=== PATIENT | female | born 1995 | race Caucasian/White ===

== ENCOUNTER 2022-03-22 12:11 | Outpatient (CLI) | payer OTHER ==
[2022-03-22 13:31] LABS: BASOPHILS % (AUTO) 0.3 %; EOSINOPHILS # (AUTO) 0.1 10^3/uL (0.0-0.7); EOSINOPHILS % (AUTO) 1.6 %; HCT - HEMATOCRIT 22.3 % (37.0-47.0); LYMPHOCYTES # (AUTO) 1.8 10^3/uL (1.5-3.5); LYMPHOCYTES % (AUTO) 19.7 %; MEAN CORPUSCULAR HEMOGLOBIN 21.7 pg (27.0-31.0); MEAN CORPUSCULAR HGB CONC 29.6 g/dL (32.0-36.0); MEAN CORPUSCULAR VOLUME 73.4 fL (81.0-99.0); MEAN PLATELET VOLUME 7.6 fL (7.9-10.8); MONOCYTES # (AUTO) 0.7 10^3/uL (0.0-1.0); MONOCYTES % (AUTO) 7.9 %; NEUTROPHILS # (AUTO) 6.3 10^3/uL (1.5-6.6); NEUTROPHILS % (AUTO) 70.1 %; PLT - PLATELET COUNT 760 10^3/uL (130-450); RED BLOOD COUNT 3.04 10^6/uL (4.20-5.40); RED CELL DISTRIBUTION WIDTH 18.6 % (12.0-15.0)
[2022-03-22 13:55] LABS: HGB - HEMOGLOBIN 6.6 g/dL (12.0-16.0)
[2022-03-22 14:02] LABS: ALBUMIN 2.4 g/dL (3.2-5.5); ALBUMIN/GLOBULIN RATIO 0.3 (1.0-2.2); BILIRUBIN,TOTAL 0.4 mg/dL (0.2-1.0); CALCIUM 8.8 mg/dL (8.5-10.3); CREATININE 0.5 mg/dL (0.4-1.0); CRP - C-REACTIVE PROTEIN 18.4 mg/dL (0-1.0); POTASSIUM 3.4 mmol/L (3.5-5.0); TOTAL PROTEIN 10.3 g/dL (6.7-8.2)
[2022-03-22 14:18] LABS: RHEUMATOID FACTOR NEGATIVE (Negative)
[2022-03-23 03:08] LABS: HBsAG SCREEN Negative (Negative); HCV AB 0.1 s/co ratio (0.0-0.9); HEPATITIS B SURFACE AB QUAL Non Reactive (.)
[2022-03-23 17:08] LABS: ANTI-DNA (DS) AB QN <1 IU/mL (0-9); CENTROMERE B ANTIBODIES <0.2 AI (0.0-0.9); CHROMATIN ANTIBODIES <0.2 AI (0.0-0.9); JO-1 AB <0.2 AI (0.0-0.9); RIBOSOMAL P ANTIBODIES <0.2 AI (0.0-0.9); RNP ANTIBODIES 0.8 AI (0.0-0.9); SCLERODERMA-70 ANTIBODIES <0.2 AI (0.0-0.9); SJOGREN'S ANTI-SS-A <0.2 AI (0.0-0.9); SJOGREN'S ANTI-SS-B <0.2 AI (0.0-0.9); SMITH ANTIBODIES <0.2 AI (0.0-0.9); SMITH/RNP ANTIBODIES <0.2 AI (0.0-0.9)
[2022-03-24 12:08] LABS: ANTINUCLEAR ANTIBODIES IFA Negative (.)
[2022-03-26 13:09] LABS: ATYPICAL pANCA <1:20 titer (Neg:<1:20); CYTOPLASMIC (C-ANCA) <1:20 titer (Neg:<1:20); PERINUCLEAR (P-ANCA) <1:20 titer (Neg:<1:20)
[2022-03-26 21:07] LABS: CYCLIC CITRULLINATED PEP IGG/A 9 units (0-19)
[2022-03-29 21:07] LABS: HLA B 27 DISEASE ASSOCIATION Positive (.)
== END 2022-03-22 12:12 | disposition home or self-care (01) ==
LOC: LAB 12:11
PROVIDERS: ATTEND Internal Medicine Rheumatology
DX: R63.4 Abnormal weight loss (principal); R35.1 Nocturia; M15.9 Polyosteoarthritis, unspecified; Z87.39 Personal history of other diseases of the musculoskeletal system and connective tissue; Z87.2 Personal history of diseases of the skin and subcutaneous tissue; Z79.899 Other long term (current) drug therapy
CPT/HCPCS: 36415; 80053; 81374; 81599; 82550; 85025; 85651; 86038; 86140; 86200; 86225; 86235; 86430; 86704; 86706; 86803; 87340

== ENCOUNTER 2022-03-22 14:44 | Emergency (ER) | payer OTHER ==
[2022-03-22 15:07] LABS: BASOPHILS % (AUTO) 0.4 %; EOSINOPHILS # (AUTO) 0.1 10^3/uL (0.0-0.7); EOSINOPHILS % (AUTO) 1.4 %; HCT - HEMATOCRIT 23.8 % (37.0-47.0); LYMPHOCYTES # (AUTO) 2.1 10^3/uL (1.5-3.5); LYMPHOCYTES % (AUTO) 22.9 %; MEAN CORPUSCULAR HEMOGLOBIN 21.5 pg (27.0-31.0); MEAN CORPUSCULAR HGB CONC 29.4 g/dL (32.0-36.0); MEAN CORPUSCULAR VOLUME 73.2 fL (81.0-99.0); MEAN PLATELET VOLUME 7.6 fL (7.9-10.8); MONOCYTES # (AUTO) 0.7 10^3/uL (0.0-1.0); MONOCYTES % (AUTO) 7.4 %; NEUTROPHILS # (AUTO) 6.1 10^3/uL (1.5-6.6); NEUTROPHILS % (AUTO) 67.7 %; PLT - PLATELET COUNT 779 10^3/uL (130-450); RED BLOOD COUNT 3.25 10^6/uL (4.20-5.40); RED CELL DISTRIBUTION WIDTH 18.3 % (12.0-15.0)
--- OUTSIDE RECORDS SUMMARY | 2022-03-22 15:13 | EXTERNAL MEDICAL SUMMARY RPT | Continuity of Care Document ---
:1995 Author Organization [place] Address [address] [place] [address] Phone Allergies and Intolerances date description facility type (no date) [facility] (unknown) Encounters No information. Functional Status No information. Immunizations No information. Medications date description facility [id number] Ibuprofen 800 MG Oral Tablet [facility] ospital [id number] Cyclobenzaprine hydrochloride 7.5 MG O [facility] Tablet [id number] Diclofenac Sodium 0.01 MG/MG Topical G [facility] Problems No information. Procedures date description facility + [facility] +0000 [facility] Results/Labs test date author facility value unit interpret ation Result panel 1 (unknown) (no (unknown) (unknown) (no value) (units (unk nown) date) unknown) (unknown) (no (unknown) (unknown) [address] [place] [address] (units (unknown) date) unknown) (unknown) (no (unknown) (unknown) [place], [place] (units ( unknown) date) [id number] unknown) (unknown) (no (unknown) (unknown) [facility] (units (unknown) date) unknown) (unknown) (no (unknown) (unknown) Magnetic (units (unkno wn) date) Resonance Report unknown) (unknown) (no (unknown) (unknown) Signed (units (unkno wn) date) unknown) (unknown) (no (unknown) (unknown) (no value) (units (unk nown) date) unknown) (unknown) (no (unknown) (unknown) 01/01/22 (units (unkno wn) date) unknown) (unknown) (no (unknown) (unknown) 1. Loss of (units (unk nown) date) normal lumbar unknown) lordosis, suggestive of muscle spasm. (unknown) (no (unknown) (unknown) 2. No (units (unkno wn) date) significant unknown) canal, or foraminal stenosis. No neural impingement. (unknown) (no (unknown) (unknown) Alignment and (units ( unknown) date) Curvature: 5 unknown) lumbar type vertebral bodies are present by plain (unknown) (no (unknown) (unknown) Approved by: (units (u nknown) date) Adelaide Fritz, unknown) Maxwell on 01/01/2022 at 14:39 (unknown) (no (unknown) (unknown) Bone Marrow: (units (u nknown) date) Marrow is of unknown) normal overall signal. No acute vertebral body (unknown) (no (unknown) (unknown) COMPARISON: (units (un known) date) [facility], unknown) CR, XR LUMBAR SPINE 2-3V, 11/14/2021, 14:35. (unknown) (no (unknown) (unknown) Dictated by: (units (u nknown) date) Adelaide Fritz, unknown) Maxwell on 01/01/2022 at 14:38 (unknown) (no (unknown) (unknown) FINDINGS: (units (unkn own) date) unknown) (unknown) (no (unknown) (unknown) IMPRESSION: (units (un known) date) unknown) (unknown) (no (unknown) (unknown) INDICATIONS: (units (u nknown) date) lumbar unknown) radiculopathy (unknown) (no (unknown) (unknown) Image quality: (units (unknown) date) Excellent. unknown) (unknown) (no (unknown) (unknown) L1-L2: Normal (units (unknown) date) appearance. unknown) (unknown) (no (unknown) (unknown) L2-L3: Normal (units (unknown) date) appearance. unknown) (unknown) (no (unknown) (unknown) L3-L4: Normal (units (unknown) date) appearance. unknown) (unknown) (no (unknown) (unknown) L4-L5: Normal (units (unknown) date) appearance. unknown) (unknown) (no (unknown) (unknown) L5-S1: Normal (units (unknown) date) appearance. unknown) (unknown) (no (unknown) (unknown) Noncontrast (units (un known) date) sagittal T1 spin unknown) echo and T2 fast echo, sagittal STIR, and T2 fast (unknown) (no (unknown) (unknown) Paraspinous Soft (units (unknown) date) Tissues: No unknown) paravertebral masses. (unknown) (no (unknown) (unknown) Spinal Cord: (units (u nknown) date) Conus medullaris unknown) terminates at the L1-L2 disc space level. (unknown) (no (unknown) (unknown) T12-L1: Normal (units (unknown) date) appearance. unknown) (unknown) (no (unknown) (unknown) TECHNIQUE: (units (unk nown) date) unknown) (unknown) (no (unknown) (unknown) There is loss of (units (unknown) date) normal lumbar unknown) lordosis. Alignment is otherwise normal. (unknown) (no (unknown) (unknown) demonstrates (units (u nknown) date) normal signal and unknown) size. (unknown) (no (unknown) (unknown) fractures. (units (unk nown) date) unknown) (unknown) (no (unknown) (unknown) may be (units (unkno wn) date) performed. unknown) (unknown) (no (unknown) (unknown) through the (units (un known) date) lumbar spine. In unknown) cases with scoliosis, additional coronal T2 fast (unknown) (no (unknown) (unknown) [id number] (units (unkno wn) date) unknown) (unknown) (no (unknown) (unknown) Accession (units ( own) date) Number: unknown) [id number] (unknown) (no (unknown) (unknown) Age/Sex: 26 / F (units (unknown) date) Date of unknown) Service: (unknown) (no (unknown) (unknown) : 1995 (units (unknown) date) Acct:[id number] unknown) (unknown) (no (unknown) (unknown) Loc: MRI (units (unkno wn) date) unknown) (unknown) (no (unknown) (unknown) Ordering (units (unkno wn) date) Provider: unknown) Kamari Rosado D.O. (unknown) (no (unknown) (unknown) PROCEDURE: MR (units (unknown) date) LUMBAR SPINE WO unknown) CON (unknown) (no (unknown) (unknown) Patient: (units (unkno wn) date) Isabelle Frey M unknown) MR#: [id number] (unknown) (no (unknown) (unknown) Procedure: MR (units ( unknown) date) lumbar spine wo unknown) con (unknown) (no (unknown) (unknown) Visualized cord (units (unknown) date) unknown) (unknown) (no (unknown) (unknown) compression (units (un known) date) unknown) (unknown) (no (unknown) (unknown) film. (units (unkno wn) date) unknown) (unknown) (no (unknown) (unknown) spin echo (units (unkn own) date) unknown) Result panel 2 (unknown) (no date) (unknown) (unknown) Negative (units (unkn own) unknown) Result panel 3 (unknown) (no date) (unknown) (unknown) > 60 mL/min (unkn own) (unknown) (no date) (unknown) (unknown) 0.3 mg/dL (unkn own) (unknown) (no date) (unknown) (unknown) 0.47 mg/dL (unkn own) (unknown) (no date) (unknown) (unknown) 0.5 (units unknown) (unknown) (unknown) (no date) (unknown) (unknown) 102 mmol/L (unkn own) (unknown) (no date) (unknown) (unknown) 109 U/L (unkn own) (unknown) (no date) (unknown) (unknown) 118 mg/dL (unkn own) (unknown) (no date) (unknown) (unknown) 138 mmol/L (unkn own) (unknown) (no date) (unknown) (unknown) 14.9 (units unknown) (unknown) (unknown) (no date) (unknown) (unknown) 18.9 % (unkn own) (unknown) (no date) (unknown) (unknown) 19 IU/L (unkn own) (unknown) (no date) (unknown) (unknown) 21 IU/L (unkn own) (unknown) (no date) (unknown) (unknown) 22.7 PG (unkn own) (unknown) (no date) (unknown) (unknown) 25.2 % (unkn own) (unknown) (no date) (unknown) (unknown) 29 mmol/L (unkn own) (unknown) (no date) (unknown) (unknown) 3.4 g/dL (unkn own) (unknown) (no date) (unknown) (unknown) 3.55 X10 6/uL (unkn own) (unknown) (no date) (unknown) (unknown) 3.9 mmol/L (unkn own) (unknown) (no date) (unknown) (unknown) 32.0 % (unkn own) (unknown) (no date) (unknown) (unknown) 6.4 g/dL (unkn own) (unknown) (no date) (unknown) (unknown) 7 mg/dL (unkn own) (unknown) (no date) (unknown) (unknown) 7.1 X10 3/uL (unkn own) (unknown) (no date) (unknown) (unknown) 71.1 fL (unkn own) (unknown) (no date) (unknown) (unknown) 8.1 g/dL (unkn own) (unknown) (no date) (unknown) (unknown) 8.6 mg/dL (unkn own) (unknown) (no date) (unknown) (unknown) 800 X10 3/uL (unkn own) (unknown) (no date) (unknown) (unknown) 9.8 g/dL (unkn own) Result panel 4 (unknown) (no date) (unknown) (unknown) 1+ (units (unkn own) unknown) (unknown) (no date) (unknown) (unknown) 1.0 % (unkn own) (unknown) (no date) (unknown) (unknown) 100 (units (unkn own) unknown) (unknown) (no date) (unknown) (unknown) 18.9 % (unkn own) (unknown) (no date) (unknown) (unknown) 22.7 PG (unkn own) (unknown) (no date) (unknown) (unknown) 25.2 % (unkn own) (unknown) (no date) (unknown) (unknown) 3.0 % (unkn own) (unknown) (no date) (unknown) (unknown) 3.55 X10 6/uL (unkn own) (unknown) (no date) (unknown) (unknown) 32.0 % (unkn own) (unknown) (no date) (unknown) (unknown) 35.0 % (unkn own) (unknown) (no date) (unknown) (unknown) 3834 /uL (unkn own) (unknown) (no date) (unknown) (unknown) 54.0 % (unkn own) (unknown) (no date) (unknown) (unknown) 7.0 % (unkn own) (unknown) (no date) (unknown) (unknown) 7.1 X10 3/uL (unkn own) (unknown) (no date) (unknown) (unknown) 71.1 fL (unkn own) (unknown) (no date) (unknown) (unknown) 8.1 g/dL (unkn own) (unknown) (no date) (unknown) (unknown) 800 X10 3/uL (unkn own) (unknown) (no date) (unknown) (unknown) Increased on (units ( unknown) smear unknown) (unknown) (no date) (unknown) (unknown) See Below (units (unk nown) unknown) Result panel 5 (unknown) (no date) (unknown) (unknown) 1.2 mmol/L (unkn own) Result panel 6 (unknown) (no date) (unknown) (unknown) 0.2 E.U./dL (unkn own) (unknown) (no date) (unknown) (unknown) 1+ (units (unkn own) unknown) (unknown) (no date) (unknown) (unknown) 1.010 (units (unkn own) unknown) (unknown) (no date) (unknown) (unknown) 3+ (units (unkn own) unknown) (unknown) (no date) (unknown) (unknown) 6.5 (units (unkn own) unknown) (unknown) (no date) (unknown) (unknown) CLEAR (units (unkn own) unknown) (unknown) (no date) (unknown) (unknown) NEGATIVE (units (unkn own) unknown) (unknown) (no date) (unknown) (unknown) NEGATIVE g/dL (unkn own) (unknown) (no date) (unknown) (unknown) YELLOW (units (unkn own) unknown) Result panel 7 (unknown) (no date) (unknown) (unknown) 0.2 E.U./dL (unkn own) (unknown) (no date) (unknown) (unknown) 1+ (units (unkn own) unknown) (unknown) (no date) (unknown) (unknown) 1-5 /HPF (units (unkn own) unknown) (unknown) (no date) (unknown) (unknown) 1.010 (units (unkn own) unknown) (unknown) (no date) (unknown) (unknown) 10-30/HPF (units (unk nown) unknown) (unknown) (no date) (unknown) (unknown) 3+ (units (unkn own) unknown) (unknown) (no date) (unknown) (unknown) 5-10/HPF (units (unkn own) unknown) (unknown) (no date) (unknown) (unknown) 6.5 (units (unkn own) unknown) (unknown) (no date) (unknown) (unknown) CLEAR (units (unkn own) unknown) (unknown) (no date) (unknown) (unknown) NEGATIVE (units (unkn own) unknown) (unknown) (no date) (unknown) (unknown) NEGATIVE g/dL (unkn own) (unknown) (no date) (unknown) (unknown) None Seen (units (unk nown) unknown) (unknown) (no date) (unknown) (unknown) Specimen (units (unkn own) Cultured unknown) (unknown) (no date) (unknown) (unknown) YELLOW (units (unkn own) unknown) Result panel 8 (unknown) (no date) (unknown) (unknown) 0.14 ng/mL (unkn own) Result panel 9 (unknown) (no (unknown) (unknown) (no value) (units (unk nown) date) unknown) (unknown) (no (unknown) (unknown) Date of Service: (units (unknown) date) 01/03/22 unknown) (unknown) (no (unknown) (unknown) (no value) (units (unk nown) date) unknown) (unknown) (no (unknown) (unknown) 01/03/22 10:34 (units (unknown) date) unknown) (unknown) (no (unknown) (unknown) 1 patch topical (units (unknown) date) DAILY PRN (Reason: unknown) pain) Qty: 15 0RF (unknown) (no (unknown) (unknown) 10 mg PO BEDTIME (units (unknown) date) 0RF unknown) (unknown) (no (unknown) (unknown) 50 mg PO BID PRN (units (unknown) date) (Reason: pain) Qty: unknown) 14 0RF (unknown) (no (unknown) (unknown) 600 mg PO QPM PRN (units (unknown) date) (Reason: sciatica) unknown) Qty: 14 0RF (unknown) (no (unknown) (unknown) 800 mg PO Q8H PRN (units (unknown) date) (Reason: pain) Qty: unknown) 21 0RF (unknown) (no (unknown) (unknown) 800 mg PO Q8H PRN (units (unknown) date) (Reason: pain) Qty: unknown) 30 0RF (unknown) (no (unknown) (unknown) Documented by: (units (unknown) date) DEMARCO unknown) (unknown) (no (unknown) (unknown) ED Orders (units (unkn own) date) unknown) (unknown) (no (unknown) (unknown) Emergency Report (units (unknown) date) unknown) (unknown) (no (unknown) (unknown) [facility] (units (unknown) date) [address] unknown) [place] [address] (unknown) (no (unknown) (unknown) Lab Results (units (un known) date) unknown) (unknown) (no (unknown) (unknown) Last Admin: (units (un known) date) 01/03/22 12:50 unknown) Dose: 1,000 mls/hr (unknown) (no (unknown) (unknown) Last Admin: (units (un known) date) 01/03/22 12:50 unknown) Dose: 4 mg (unknown) (no (unknown) (unknown) PO PER PKG DIR (units (unknown) date) unknown) (unknown) (no (unknown) (unknown) Point of Care (units ( unknown) date) Testing unknown) (unknown) (no (unknown) (unknown) Rx Instructions: (units (unknown) date) unknown) (unknown) (no (unknown) (unknown) See Rx Instructions (unit s (unknown) date) PO PER PKG DIR Qty: unknown) 21 0RF (unknown) (no (unknown) (unknown) Stop: 01/03/22 (units (unknown) date) 12:37 unknown) (unknown) (no (unknown) (unknown) Stop: 01/03/22 (units (unknown) date) 13:35 unknown) (unknown) (no (unknown) (unknown) Vital Signs - 8 hr (units (unknown) date) unknown) (unknown) (no (unknown) (unknown) leave on most (units ( unknown) date) painful area for up unknown) to 12 hrs (unknown) (no (unknown) (unknown) (no value) (units (unk nown) date) unknown) (unknown) (no (unknown) (unknown) 01/03/22 01/03/22 (units (unknown) date) 01/03/22 Range/Units unknown) (unknown) (no (unknown) (unknown) 09:56 10:34 10:34 (units (unknown) date) unknown) (unknown) (no (unknown) (unknown) 10:39 10:39 12:40 (units (unknown) date) unknown) (unknown) (no (unknown) (unknown) cyclobenzaprine 10 (units (unknown) date) mg tablet unknown) (unknown) (no (unknown) (unknown) gabapentin 600 mg (units (unknown) date) tablet extended unknown) release 24 hr (unknown) (no (unknown) (unknown) ibuprofen 800 mg (units (unknown) date) tablet unknown) (unknown) (no (unknown) (unknown) lidocaine (units (unkn own) date) [Lidoderm] 5 % unknown) adhesive patch,medicated (unknown) (no (unknown) (unknown) methylprednisolone (units (unknown) date) [Medrol (Luis)] 4 mg unknown) tablets,dose pack (unknown) (no (unknown) (unknown) tramadol 50 mg (units (unknown) date) tablet unknown) (unknown) (no (unknown) (unknown) 01/03/22 (units (unkno wn) date) unknown) (unknown) (no (unknown) (unknown) 01/03/22 09:56 (units (unknown) date) unknown) (unknown) (no (unknown) (unknown) 01/03/22 10:34 (units (unknown) date) unknown) (unknown) (no (unknown) (unknown) 01/03/22 10:39 (units (unknown) date) unknown) (unknown) (no (unknown) (unknown) 01/03/22 12:40 (units (unknown) date) unknown) (unknown) (no (unknown) (unknown) 01/03/22 12:55 (units (unknown) date) unknown) (unknown) (no (unknown) (unknown) 01/03/22 13:10 (units (unknown) date) unknown) (unknown) (no (unknown) (unknown) 09:55 01/03/22 (units (unknown) date) unknown) (unknown) (no (unknown) (unknown) 11:36 01/03/22 (units (unknown) date) unknown) (unknown) (no (unknown) (unknown) 11:37 (units (unkno wn) date) unknown) (unknown) (no (unknown) (unknown) 12:00 01/03/22 (units (unknown) date) unknown) (unknown) (no (unknown) (unknown) 12:42 01/03/22 (units (unknown) date) unknown) (unknown) (no (unknown) (unknown) 12:44 (units (unkno wn) date) unknown) (unknown) (no (unknown) (unknown) [id number] (units (unkno wn) date) unknown) (unknown) (no (unknown) (unknown) ALT (<35) IU/L (unit s (unknown) date) unknown) (unknown) (no (unknown) (unknown) ALT 19 (<35) (units (unknown) date) IU/L unknown) (unknown) (no (unknown) (unknown) AST (14-36) (units (unknown) date) IU/L unknown) (unknown) (no (unknown) (unknown) AST 21 (14-36) (units (unknown) date) IU/L unknown) (unknown) (no (unknown) (unknown) Age/Sex: 26 / F (units (unknown) date) unknown) (unknown) (no (unknown) (unknown) Albumin (units (unkno wn) date) (3.5-5.0) g/dL unknown) (unknown) (no (unknown) (unknown) Albumin 3.4 L (units (unknown) date) (3.5-5.0) g/dL unknown) (unknown) (no (unknown) (unknown) Albumin/Globulin (units (unknown) date) Ratio (1.0-2.8) unknown) (unknown) (no (unknown) (unknown) Albumin/Globulin (units (unknown) date) Ratio 0.5 L unknown) (1.0-2.8) (unknown) (no (unknown) (unknown) Alkaline (units (unkno wn) date) Phosphatase unknown) (38-126) U/L (unknown) (no (unknown) (unknown) Alkaline (units (unkno wn) date) Phosphatase 109 unknown) (38-126) U/L (unknown) (no (unknown) (unknown) Anisocytosis (units (u nknown) date) unknown) (unknown) (no (unknown) (unknown) Anisocytosis 1+ H (unit s (unknown) date) unknown) (unknown) (no (unknown) (unknown) Antibiotics:: (units ( unknown) date) unknown) (unknown) (no (unknown) (unknown) Atypical Lymphs % (units (unknown) date) ( - 0) % unknown) (unknown) (no (unknown) (unknown) Atypical Lymphs % (units (unknown) date) 3.0 H ( - 0) % unknown) (unknown) (no (unknown) (unknown) BUN (7-17) (units (unknown) date) mg/dL unknown) (unknown) (no (unknown) (unknown) BUN 7 (7-17) (units (unknown) date) mg/dL unknown) (unknown) (no (unknown) (unknown) BUN/Creatinine (units (unknown) date) Ratio (6-22) unknown) (unknown) (no (unknown) (unknown) BUN/Creatinine (units (unknown) date) Ratio 14.9 unknown) (6-22) (unknown) (no (unknown) (unknown) Baso # (Auto) (units ( unknown) date) unknown) (unknown) (no (unknown) (unknown) Baso # (Auto) Not (unit s (unknown) date) Reportable unknown) (unknown) (no (unknown) (unknown) Baso % (Auto) (units ( unknown) date) unknown) (unknown) (no (unknown) (unknown) Baso % (Auto) Not (unit s (unknown) date) Reportable unknown) (unknown) (no (unknown) (unknown) Blood Culture Stat (units (unknown) date) unknown) (unknown) (no (unknown) (unknown) Blood Pressure (units (unknown) date) 109/68 05/04/22 unknown) 09:55 (unknown) (no (unknown) (unknown) Blood Pressure (units (unknown) date) 109/68 121/75 unknown) (unknown) (no (unknown) (unknown) Blood Pressure (units (unknown) date) 116/59 L 128/66 unknown) (unknown) (no (unknown) (unknown) CMP [Comprehensive (units (unknown) date) Metabolic Panel] unknown) Stat (unknown) (no (unknown) (unknown) COVID19 -Nasal (units (unknown) date) RAPID/Pre-Proc Stat unknown) (unknown) (no (unknown) (unknown) Calcium (units (o wn) date) (8.4-10.2) mg/dL unknown) (unknown) (no (unknown) (unknown) Calcium 8.6 (units (unknown) date) (8.4-10.2) mg/dL unknown) (unknown) (no (unknown) (unknown) Carbon Dioxide (units (unknown) date) (22-32) mmol/L unknown) (unknown) (no (unknown) (unknown) Carbon Dioxide (units (unknown) date) 29 (22-32) mmol/L unknown) (unknown) (no (unknown) (unknown) Cardio: denies (units (unknown) date) chest pain, unknown) palpitations, edema (unknown) (no (unknown) (unknown) Chief Complaint: (units (unknown) date) Weakness unknown) (unknown) (no (unknown) (unknown) Chlamydia Gonorrhea (unit s (unknown) date) PCR -URINE Stat unknown) (unknown) (no (unknown) (unknown) Chloride (units (o wn) date) (98-107) mmol/L unknown) (unknown) (no (unknown) (unknown) Chloride 102 (units (unknown) date) (98-107) mmol/L unknown) (unknown) (no (unknown) (unknown) Complete Blood (units (unknown) date) Count AUTO DIFF Stat unknown) (unknown) (no (unknown) (unknown) Course (units (o wn) date) unknown) (unknown) (no (unknown) (unknown) Creatinine (units (unk nown) date) (0.52-1.04) mg/dL unknown) (unknown) (no (unknown) (unknown) Creatinine 0.47 (units (unknown) date) L (0.52-1.04) unknown) mg/dL (unknown) (no (unknown) (unknown) : 1995 (units (unknown) date) Acct:[id number] unknown) (unknown) (no (unknown) (unknown) Departure (units (unkn own) date) unknown) (unknown) (no (unknown) (unknown) Discharge Plan (units (unknown) date) unknown) (unknown) (no (unknown) (unknown) Discontinued (units (u nknown) date) Medications unknown) (unknown) (no (unknown) (unknown) ER Physician: (units ( unknown) date) Janis Neely unknown) (unknown) (no (unknown) (unknown) Eos % (Auto) (units (u nknown) date) unknown) (unknown) (no (unknown) (unknown) Eos % (Auto) Not (units (unknown) date) Reportable unknown) (unknown) (no (unknown) (unknown) Eosinophils % (units ( unknown) date) (Manual) (2-4) unknown) % (unknown) (no (unknown) (unknown) Eosinophils % (units ( unknown) date) (Manual) 1.0 L unknown) (2-4) % (unknown) (no (unknown) (unknown) Estimated GFR (units ( unknown) date) (>60) mL/min unknown) (unknown) (no (unknown) (unknown) Estimated GFR > (units (unknown) date) 60 (>60) mL/min unknown) (unknown) (no (unknown) (unknown) Evaluation (units (unk nown) date) unknown) (unknown) (no (unknown) (unknown) Exam (units (unkno wn) date) unknown) (unknown) (no (unknown) (unknown) Eyes: denies visual (unit s (unknown) date) changes, eye pain unknown) (unknown) (no (unknown) (unknown) GI: denies (units (unk nown) date) abdominal pain, unknown) nausea, vomiting, or diarrhea (unknown) (no (unknown) (unknown) : denies dysuria, (unit s (unknown) date) hematuria, urinary unknown) retention, frequency or incontinence (unknown) (no (unknown) (unknown) General (units (unkno wn) date) unknown) (unknown) (no (unknown) (unknown) General: Endorses (units (unknown) date) chills, malaise, unknown) sweats, fatigue (unknown) (no (unknown) (unknown) GenericComposite[Pl (unit s (unknown) date) t Count unknown) (150-400) X10^3/uL ] (unknown) (no (unknown) (unknown) GenericComposite[Pl (unit s (unknown) date) t Count 800 H unknown) (150-400) X10^3/uL ] (unknown) (no (unknown) (unknown) GenericComposite[RB (unit s (unknown) date) C (4.0-5.2) unknown) X10^6/uL ] (unknown) (no (unknown) (unknown) GenericComposite[RB (unit s (unknown) date) C 3.55 L unknown) (4.0-5.2) X10^6/uL ] (unknown) (no (unknown) (unknown) GenericComposite[WB (unit s (unknown) date) C (4.5-11.0) unknown) X10^3/uL ] (unknown) (no (unknown) (unknown) GenericComposite[WB (unit s (unknown) date) C 7.1 (4.5-11.0) unknown) X10^3/uL ] (unknown) (no (unknown) (unknown) Globulin (units (unkno wn) date) (1.7-4.1) g/dL unknown) (unknown) (no (unknown) (unknown) Globulin 6.4 H (units (unknown) date) (1.7-4.1) g/dL unknown) (unknown) (no (unknown) (unknown) Glucose (units (unkno wn) date) (70-100) mg/dL unknown) (unknown) (no (unknown) (unknown) Glucose 118 H (units (unknown) date) (70-100) mg/dL unknown) (unknown) (no (unknown) (unknown) Glucose POC 136 (units (unknown) date) unknown) (unknown) (no (unknown) (unknown) HPI - Sepsis (units (u nknown) date) unknown) (unknown) (no (unknown) (unknown) Hct (36-46) % (units (unknown) date) unknown) (unknown) (no (unknown) (unknown) Hct 25.2 L (units (u nknown) date) (36-46) % unknown) (unknown) (no (unknown) (unknown) Head/Neck: denies (units (unknown) date) headache, neck pain, unknown) dizziness (unknown) (no (unknown) (unknown) Hgb (12.0-16.0) (unit s (unknown) date) g/dL unknown) (unknown) (no (unknown) (unknown) Hgb 8.1 L (units (un known) date) (12.0-16.0) g/dL unknown) (unknown) (no (unknown) (unknown) Hypochromasia (units ( unknown) date) unknown) (unknown) (no (unknown) (unknown) Hypochromasia 1+ (units (unknown) date) H unknown) (unknown) (no (unknown) (unknown) IV antimicrobials (units (unknown) date) will be initiated as unknown) soon as possible after recognition of (unknown) (no (unknown) (unknown) Initial Vital Signs (unit s (unknown) date) unknown) (unknown) (no (unknown) (unknown) Initial Vital (units ( unknown) date) Signs: unknown) (unknown) (no (unknown) (unknown) Lab Data (units (unkno wn) date) unknown) (unknown) (no (unknown) (unknown) Labs: (units (unkno wn) date) unknown) (unknown) (no (unknown) (unknown) Lactate (units (unkno wn) date) (0.7-2.1) mmol/L unknown) (unknown) (no (unknown) (unknown) Lactate 1.2 (units (u nknown) date) (0.7-2.1) mmol/L unknown) (unknown) (no (unknown) (unknown) Lactate (Lactic (units (unknown) date) Acid) Stat unknown) (unknown) (no (unknown) (unknown) Level 1 - Infection (unit s (unknown) date) unknown) (unknown) (no (unknown) (unknown) Limitations: no (units (unknown) date) limitations unknown) (unknown) (no (unknown) (unknown) Lumbago with (units (u nknown) date) sciatica unknown) (unknown) (no (unknown) (unknown) Lumbosacral (units (un known) date) radiculopathy at L5 unknown) (unknown) (no (unknown) (unknown) Lymph # (Auto) (units (unknown) date) unknown) (unknown) (no (unknown) (unknown) Lymph # (Auto) (units (unknown) date) Not Reportable unknown) (unknown) (no (unknown) (unknown) Lymph % (Auto) (units (unknown) date) unknown) (unknown) (no (unknown) (unknown) Lymph % (Auto) (units (unknown) date) Not Reportable unknown) (unknown) (no (unknown) (unknown) Lymphocytes % (units ( unknown) date) (Manual) (25-45) unknown) % (unknown) (no (unknown) (unknown) Lymphocytes % (units ( unknown) date) (Manual) 35.0 unknown) (25-45) % (unknown) (no (unknown) (unknown) MCH (26-34) PG (unit s (unknown) date) unknown) (unknown) (no (unknown) (unknown) MCH 22.7 L (units (u nknown) date) (26-34) PG unknown) (unknown) (no (unknown) (unknown) MCHC (30-36) % (unit s (unknown) date) unknown) (unknown) (no (unknown) (unknown) MCHC 32.0 (units (un known) date) (30-36) % unknown) (unknown) (no (unknown) (unknown) MCV (80-100) (units (unknown) date) fL unknown) (unknown) (no (unknown) (unknown) MCV 71.1 L (units (u nknown) date) (80-100) fL unknown) (unknown) (no (unknown) (unknown) MDM - Sepsis (units (u nknown) date) unknown) (unknown) (no (unknown) (unknown) MSK: denies joint (units (unknown) date) pain, muscle unknown) weakness (unknown) (no (unknown) (unknown) Medical History (units (unknown) date) (Updated 12/10/21 @ unknown) 12:24 by Kamari Rosado DO) (unknown) (no (unknown) (unknown) Microcytosis (units (u nknown) date) unknown) (unknown) (no (unknown) (unknown) Microcytosis 1+ H (unit s (unknown) date) unknown) (unknown) (no (unknown) (unknown) Mode of arrival: (units (unknown) date) Wheelchair unknown) (unknown) (no (unknown) (unknown) [place] # (Auto) (units ( unknown) date) unknown) (unknown) (no (unknown) (unknown) [place] # (Auto) Not (unit s (unknown) date) Reportable unknown) (unknown) (no (unknown) (unknown) [place] % (Auto) (units ( unknown) date) unknown) (unknown) (no (unknown) (unknown) [place] % (Auto) Not (unit s (unknown) date) Reportable unknown) (unknown) (no (unknown) (unknown) Monocytes % (units (un known) date) (Manual) (2-11) unknown) % (unknown) (no (unknown) (unknown) Monocytes % (units (un known) date) (Manual) 7.0 unknown) (2-11) % (unknown) (no (unknown) (unknown) Narrative: (units (unk nown) date) unknown) (unknown) (no (unknown) (unknown) Neuro: denies (units ( unknown) date) numbness, tingling unknown) (unknown) (no (unknown) (unknown) Neut % (Auto) (units ( unknown) date) unknown) (unknown) (no (unknown) (unknown) Neut % (Auto) Not (unit s (unknown) date) Reportable unknown) (unknown) (no (unknown) (unknown) Neutrophils # (units ( unknown) date) (Manual) unknown) ([id number]) /uL (unknown) (no (unknown) (unknown) Neutrophils # (units ( unknown) date) (Manual) 3834 unknown) ([phone]) /uL (unknown) (no (unknown) (unknown) No Action (units (unkn own) date) unknown) (unknown) (no (unknown) (unknown) Ondansetron HCl (units (unknown) date) (Ondansetron 4 Mg/2 unknown) Ml Inj) 4 mg IV NOW ONE (unknown) (no (unknown) (unknown) Ordered: (units (unkno wn) date) unknown) (unknown) (no (unknown) (unknown) Orders (units (unkno wn) date) unknown) (unknown) (no (unknown) (unknown) Patient History (units (unknown) date) unknown) (unknown) (no (unknown) (unknown) Patient: (units (unkno wn) date) Isabelle Frey unknown) MR#: [id number] (unknown) (no (unknown) (unknown) Platelet Estimate (units (unknown) date) unknown) (unknown) (no (unknown) (unknown) Platelet Estimate (units (unknown) date) Increased on smear unknown) (unknown) (no (unknown) (unknown) Potassium (units (unkn own) date) (3.4-5.1) mmol/L unknown) (unknown) (no (unknown) (unknown) Potassium 3.9 (units (unknown) date) (3.4-5.1) mmol/L unknown) (unknown) (no (unknown) (unknown) Prescriptions: (units (unknown) date) unknown) (unknown) (no (unknown) (unknown) Procalcitonin (units ( unknown) date) (<0.5) ng/mL unknown) (unknown) (no (unknown) (unknown) Procalcitonin (units ( unknown) date) 0.14 (<0.5) ng/mL unknown) (unknown) (no (unknown) (unknown) Procalcitonin Stat (units (unknown) date) unknown) (unknown) (no (unknown) (unknown) Pulse Oximetry 99 (units (unknown) date) 01/03/22 09:55 unknown) (unknown) (no (unknown) (unknown) Pulse Oximetry 99 (units (unknown) date) 92 100 unknown) (unknown) (no (unknown) (unknown) Pulse Oximetry 99 (units (unknown) date) 99 99 unknown) (unknown) (no (unknown) (unknown) Pulse Rate 109 H (units (unknown) date) 01/03/22 09:55 unknown) (unknown) (no (unknown) (unknown) Pulse Rate 109 H 96 (unit s (unknown) date) H 95 H unknown) (unknown) (no (unknown) (unknown) Pulse Rate 86 98 H (units (unknown) date) 92 H unknown) (unknown) (no (unknown) (unknown) RBC Morphology (units (unknown) date) unknown) (unknown) (no (unknown) (unknown) RBC Morphology (units (unknown) date) See below unknown) (unknown) (no (unknown) (unknown) RDW (11.6-14.8) (unit s (unknown) date) % unknown) (unknown) (no (unknown) (unknown) RDW 18.9 H (units (u nknown) date) (11.6-14.8) % unknown) (unknown) (no (unknown) (unknown) Respiratory Rate (units (unknown) date) 17 unknown) (unknown) (no (unknown) (unknown) Respiratory Rate (units (unknown) date) 20 01/03/22 09:55 unknown) (unknown) (no (unknown) (unknown) Respiratory Rate 20 (unit s (unknown) date) 22 16 unknown) (unknown) (no (unknown) (unknown) Respiratory: denies (unit s (unknown) date) dyspnea, cough, unknown) orthopnea (unknown) (no (unknown) (unknown) Result diagrams: (units (unknown) date) unknown) (unknown) (no (unknown) (unknown) Review of Systems (units (unknown) date) unknown) (unknown) (no (unknown) (unknown) SARS-CoV-2 (PCR) (units (unknown) date) (Negative) unknown) (unknown) (no (unknown) (unknown) SARS-CoV-2 (PCR) (units (unknown) date) Negative unknown) (Negative) (unknown) (no (unknown) (unknown) Seg Neutrophils % (units (unknown) date) (38-70) % unknown) (unknown) (no (unknown) (unknown) Seg Neutrophils % (units (unknown) date) 54.0 (38-70) % unknown) (unknown) (no (unknown) (unknown) Sepsis Guideline (units (unknown) date) Criteria unknown) (unknown) (no (unknown) (unknown) Sepsis Infection (units (unknown) date) Criteria Present: unknown) None (unknown) (no (unknown) (unknown) Sepsis Screen: No (units (unknown) date) Definite Risk unknown) (unknown) (no (unknown) (unknown) Signed By: (units (unk nown) date) unknown) (unknown) (no (unknown) (unknown) Skin: denies rash, (units (unknown) date) itching, skin unknown) lesions or other (unknown) (no (unknown) (unknown) Smoking Status: (units (unknown) date) Never smoker unknown) (unknown) (no (unknown) (unknown) Smoking Status: (units (unknown) date) Never smoker unknown) (unknown) (no (unknown) (unknown) Social History (units (unknown) date) (Reviewed 11/14/21 @ unknown) 14:51 by Jarrell Landa PA-C) (unknown) (no (unknown) (unknown) Sodium (units (unkno wn) date) (137-145) mmol/L unknown) (unknown) (no (unknown) (unknown) Sodium 138 (units ( unknown) date) (137-145) mmol/L unknown) (unknown) (no (unknown) (unknown) Sodium Chloride (units (unknown) date) (Normal Saline 0.9%) unknown) 1,000 mls @ 1,000 mls/hr IV BOLUS ONE (unknown) (no (unknown) (unknown) Source: patient (units (unknown) date) unknown) (unknown) (no (unknown) (unknown) Substance Use Type: (unit s (unknown) date) marijuana unknown) (unknown) (no (unknown) (unknown) Temperature (units (un known) date) unknown) (unknown) (no (unknown) (unknown) Temperature 98.0 F (unit s (unknown) date) 01/03/22 09:55 unknown) (unknown) (no (unknown) (unknown) Temperature 98.0 F (units (unknown) date) unknown) (unknown) (no (unknown) (unknown) This is a (units (unkn own) date) 26-year-old female unknown) with a history of psoriatic arthritis and has (unknown) (no (unknown) (unknown) Total Bilirubin (units (unknown) date) (0.2-1.3) mg/dL unknown) (unknown) (no (unknown) (unknown) Total Bilirubin (units (unknown) date) 0.3 (0.2-1.3) unknown) mg/dL (unknown) (no (unknown) (unknown) Total Counted (units ( unknown) date) unknown) (unknown) (no (unknown) (unknown) Total Counted 100 (unit s (unknown) date) unknown) (unknown) (no (unknown) (unknown) Total Protein (units ( unknown) date) (6.3-8.2) g/dL unknown) (unknown) (no (unknown) (unknown) Total Protein (units ( unknown) date) 9.8 H* (6.3-8.2) unknown) g/dL (unknown) (no (unknown) (unknown) Treatment Initiated (unit s (unknown) date) unknown) (unknown) (no (unknown) (unknown) Ur Culture (units (unk nown) date) Indicated? unknown) (unknown) (no (unknown) (unknown) Ur Culture (units (unk nown) date) Indicated? unknown) Specimen cultured (unknown) (no (unknown) (unknown) Ur Leukocyte (units (u nknown) date) Esterase unknown) (NEGATIVE) (unknown) (no (unknown) (unknown) Ur Leukocyte (units (u nknown) date) Esterase 1+ H unknown) (NEGATIVE) (unknown) (no (unknown) (unknown) Ur Specific [place] (unit s (unknown) date) (1.000-1.035) unknown) (unknown) (no (unknown) (unknown) Ur Specific [place] (unit s (unknown) date) 1.010 unknown) (1.000-1.035) (unknown) (no (unknown) (unknown) Ur Squamous Epith (units (unknown) date) Cells (0-5/HPF) unknown) (unknown) (no (unknown) (unknown) Ur Squamous Epith (units (unknown) date) Cells 1-5 /hpf unknown) (0-5/HPF) (unknown) (no (unknown) (unknown) Urinalysis and (units (unknown) date) Microscopic Stat unknown) (unknown) (no (unknown) (unknown) Urine Appearance (units (unknown) date) unknown) (unknown) (no (unknown) (unknown) Urine Appearance (units (unknown) date) Clear unknown) (unknown) (no (unknown) (unknown) Urine Bacteria (units (unknown) date) (None) unknown) (unknown) (no (unknown) (unknown) Urine Bacteria (units (unknown) date) None seen (None) unknown) (unknown) (no (unknown) (unknown) Urine Bilirubin (units (unknown) date) (NEGATIVE) unknown) (unknown) (no (unknown) (unknown) Urine Bilirubin (units (unknown) date) Negative (NEGATIVE) unknown) (unknown) (no (unknown) (unknown) Urine Color (units (un known) date) unknown) (unknown) (no (unknown) (unknown) Urine Color (units (un known) date) Yellow unknown) (unknown) (no (unknown) (unknown) Urine Culture Stat (units (unknown) date) unknown) (unknown) (no (unknown) (unknown) Urine Glucose (UA) (units (unknown) date) (Negative) g/dL unknown) (unknown) (no (unknown) (unknown) Urine Glucose (UA) (units (unknown) date) Negative unknown) (Negative) g/dL (unknown) (no (unknown) (unknown) Urine Ketones (units ( unknown) date) (NEGATIVE) unknown) (unknown) (no (unknown) (unknown) Urine Ketones (units ( unknown) date) Negative (NEGATIVE) unknown) (unknown) (no (unknown) (unknown) Urine Nitrate (units ( unknown) date) (Negative) unknown) (unknown) (no (unknown) (unknown) Urine Nitrate (units ( unknown) date) Negative (Negative) unknown) (unknown) (no (unknown) (unknown) Urine Occult Blood (units (unknown) date) (Negative) unknown) (unknown) (no (unknown) (unknown) Urine Occult Blood (units (unknown) date) 3+ H (Negative) unknown) (unknown) (no (unknown) (unknown) Urine Protein (units ( unknown) date) (Negative) unknown) (unknown) (no (unknown) (unknown) Urine Protein (units ( unknown) date) Negative (Negative) unknown) (unknown) (no (unknown) (unknown) Urine RBC (units (unkn own) date) (0-5/HPF) unknown) (unknown) (no (unknown) (unknown) Urine RBC (units (unkn own) date) 10-30/hpf H unknown) (0-5/HPF) (unknown) (no (unknown) (unknown) Urine Urobilinogen (units (unknown) date) (0.2) E.U./dL unknown) (unknown) (no (unknown) (unknown) Urine Urobilinogen (units (unknown) date) 0.2 (0.2) unknown) E.U./dL (unknown) (no (unknown) (unknown) Urine WBC (units (unkn own) date) (0-5/HPF) unknown) (unknown) (no (unknown) (unknown) Urine WBC (units (unkn own) date) 5-10/hpf H unknown) (0-5/HPF) (unknown) (no (unknown) (unknown) Urine pH (units (unkno wn) date) (4.5-8.0) unknown) (unknown) (no (unknown) (unknown) Urine pH 6.5 (units (unknown) date) (4.5-8.0) unknown) (unknown) (no (unknown) (unknown) Vital Signs (units (un known) date) unknown) (unknown) (no (unknown) (unknown) Vital signs: (units (u nknown) date) unknown) (unknown) (no (unknown) (unknown) Wet Prep Tric BV (units (unknown) date) Emilia Stat unknown) (unknown) (no (unknown) (unknown) [Embedded Image Not (unit s (unknown) date) Available] unknown) (unknown) (no (unknown) (unknown) alcohol intake (units (unknown) date) frequency: 0-2 unknown) drinks per day (unknown) (no (unknown) (unknown) n over the last 2 (units (unknown) date) months which has not unknown) been getting much better after 2 courses (unknown) (no (unknown) (unknown) of steroids, muscle (unit s (unknown) date) relaxers, unknown) anti-inflammatories. Patient states that (unknown) (no (unknown) (unknown) presented to the (units (unknown) date) emergency department unknown) and walk-in clinic for lumbar repleted damian (unknown) (no (unknown) (unknown) sepsis state and (units (unknown) date) within one hour for unknown) both sepsis and septic shock. (unknown) (no (unknown) (unknown) yesterday at work (units (unknown) date) her co-worker unknown) thought that she was pale Result panel 10 (unknown) (no date) (unknown) (unknown) (no value) (units (un known) unknown) (unknown) (no date) (unknown) (unknown) None seen (units (unk nown) unknown) (unknown) (no date) (unknown) (unknown) Occasional WBC (units (unknown) seen unknown) Result panel 11 (unknown) (no (unknown) (unknown) (no value) (units (unk nown) date) unknown) (unknown) (no (unknown) (unknown) Date of Service: (units (unknown) date) 01/03/22 unknown) (unknown) (no (unknown) (unknown) (no value) (units (unk nown) date) unknown) (unknown) (no (unknown) (unknown) 01/03/22 10:34 (units (unknown) date) unknown) (unknown) (no (unknown) (unknown) 1 patch topical (units (unknown) date) DAILY PRN (Reason: unknown) pain) Qty: 15 0RF (unknown) (no (unknown) (unknown) 10 mg PO BEDTIME (units (unknown) date) 0RF unknown) (unknown) (no (unknown) (unknown) 50 mg PO BID PRN (units (unknown) date) (Reason: pain) Qty: unknown) 14 0RF (unknown) (no (unknown) (unknown) 600 mg PO QPM PRN (units (unknown) date) (Reason: sciatica) unknown) Qty: 14 0RF (unknown) (no (unknown) (unknown) 800 mg PO Q8H PRN (units (unknown) date) (Reason: pain) Qty: unknown) 21 0RF (unknown) (no (unknown) (unknown) 800 mg PO Q8H PRN (units (unknown) date) (Reason: pain) Qty: unknown) 30 0RF (unknown) (no (unknown) (unknown) Documented by: (units (unknown) date) DEMARCO unknown) (unknown) (no (unknown) (unknown) ED Orders (units (unkn own) date) unknown) (unknown) (no (unknown) (unknown) Emergency Report (units (unknown) date) unknown) (unknown) (no (unknown) (unknown) [facility] (units (unknown) date) [address] unknown) [place] [id number] (unknown) (no (unknown) (unknown) Lab Results (units (un known) date) unknown) (unknown) (no (unknown) (unknown) Last Admin: (units (un known) date) 01/03/22 12:50 unknown) Dose: 1,000 mls/hr (unknown) (no (unknown) (unknown) Last Admin: (units (un known) date) 01/03/22 12:50 unknown) Dose: 4 mg (unknown) (no (unknown) (unknown) PO PER PKG DIR (units (unknown) date) unknown) (unknown) (no (unknown) (unknown) Point of Care (units ( unknown) date) Testing unknown) (unknown) (no (unknown) (unknown) Rx Instructions: (units (unknown) date) unknown) (unknown) (no (unknown) (unknown) See Rx Instructions (unit s (unknown) date) PO PER PKG DIR Qty: unknown) 21 0RF (unknown) (no (unknown) (unknown) Stop: 01/03/22 (units (unknown) date) 12:37 unknown) (unknown) (no (unknown) (unknown) Stop: 01/03/22 (units (unknown) date) 13:35 unknown) (unknown) (no (unknown) (unknown) Vital Signs - 8 hr (units (unknown) date) unknown) (unknown) (no (unknown) (unknown) leave on most (units ( unknown) date) painful area for up unknown) to 12 hrs (unknown) (no (unknown) (unknown) (no value) (units (unk nown) date) unknown) (unknown) (no (unknown) (unknown) 01/03/22 01/03/22 (units (unknown) date) 01/03/22 Range/Units unknown) (unknown) (no (unknown) (unknown) 09:56 10:34 10:34 (units (unknown) date) unknown) (unknown) (no (unknown) (unknown) 10:39 10:39 12:40 (units (unknown) date) unknown) (unknown) (no (unknown) (unknown) cyclobenzaprine 10 (units (unknown) date) mg tablet unknown) (unknown) (no (unknown) (unknown) gabapentin 600 mg (units (unknown) date) tablet extended unknown) release 24 hr (unknown) (no (unknown) (unknown) ibuprofen 800 mg (units (unknown) date) tablet unknown) (unknown) (no (unknown) (unknown) lidocaine (units (unkn own) date) [Lidoderm] 5 % unknown) adhesive patch,medicated (unknown) (no (unknown) (unknown) methylprednisolone (units (unknown) date) [Medrol (Luis)] 4 mg unknown) tablets,dose pack (unknown) (no (unknown) (unknown) tramadol 50 mg (units (unknown) date) tablet unknown) (unknown) (no (unknown) (unknown) 01/03/22 (units (unkno wn) date) unknown) (unknown) (no (unknown) (unknown) 01/03/22 09:56 (units (unknown) date) unknown) (unknown) (no (unknown) (unknown) 01/03/22 10:34 (units (unknown) date) unknown) (unknown) (no (unknown) (unknown) 01/03/22 10:39 (units (unknown) date) unknown) (unknown) (no (unknown) (unknown) 01/03/22 12:40 (units (unknown) date) unknown) (unknown) (no (unknown) (unknown) 01/03/22 12:55 (units (unknown) date) unknown) (unknown) (no (unknown) (unknown) 01/03/22 13:10 (units (unknown) date) unknown) (unknown) (no (unknown) (unknown) 09:55 01/03/22 (units (unknown) date) unknown) (unknown) (no (unknown) (unknown) 11:36 01/03/22 (units (unknown) date) unknown) (unknown) (no (unknown) (unknown) 11:37 (units (unkno wn) date) unknown) (unknown) (no (unknown) (unknown) 12:00 01/03/22 (units (unknown) date) unknown) (unknown) (no (unknown) (unknown) 12:42 01/03/22 (units (unknown) date) unknown) (unknown) (no (unknown) (unknown) 12:44 (units (unkno wn) date) unknown) (unknown) (no (unknown) (unknown) 13:26 (units (unkno wn) date) unknown) (unknown) (no (unknown) (unknown) 192511 (units (unkno wn) date) unknown) (unknown) (no (unknown) (unknown) ALT (<35) IU/L (unit s (unknown) date) unknown) (unknown) (no (unknown) (unknown) ALT 19 (<35) (units (unknown) date) IU/L unknown) (unknown) (no (unknown) (unknown) AST (14-36) (units (unknown) date) IU/L unknown) (unknown) (no (unknown) (unknown) AST 21 (14-36) (units (unknown) date) IU/L unknown) (unknown) (no (unknown) (unknown) Age/Sex: 26 / F (units (unknown) date) unknown) (unknown) (no (unknown) (unknown) Albumin (units (unkno wn) date) (3.5-5.0) g/dL unknown) (unknown) (no (unknown) (unknown) Albumin 3.4 L (units (unknown) date) (3.5-5.0) g/dL unknown) (unknown) (no (unknown) (unknown) Albumin/Globulin (units (unknown) date) Ratio (1.0-2.8) unknown) (unknown) (no (unknown) (unknown) Albumin/Globulin (units (unknown) date) Ratio 0.5 L unknown) (1.0-2.8) (unknown) (no (unknown) (unknown) Alkaline (units (unkno wn) date) Phosphatase unknown) (38-126) U/L (unknown) (no (unknown) (unknown) Alkaline (units (unkno wn) date) Phosphatase 109 unknown) (38-126) U/L (unknown) (no (unknown) (unknown) Anisocytosis (units (u nknown) date) unknown) (unknown) (no (unknown) (unknown) Anisocytosis 1+ H (unit s (unknown) date) unknown) (unknown) (no (unknown) (unknown) Antibiotics:: (units ( unknown) date) unknown) (unknown) (no (unknown) (unknown) Atypical Lymphs % (units (unknown) date) ( - 0) % unknown) (unknown) (no (unknown) (unknown) Atypical Lymphs % (units (unknown) date) 3.0 H ( - 0) % unknown) (unknown) (no (unknown) (unknown) BUN (7-17) (units (unknown) date) mg/dL unknown) (unknown) (no (unknown) (unknown) BUN 7 (7-17) (units (unknown) date) mg/dL unknown) (unknown) (no (unknown) (unknown) BUN/Creatinine (units (unknown) date) Ratio (-) unknown) (unknown) (no (unknown) (unknown) BUN/Creatinine (units (unknown) date) Ratio 14.9 unknown) (622) (unknown) (no (unknown) (unknown) Baso # (Auto) (units ( unknown) date) unknown) (unknown) (no (unknown) (unknown) Baso # (Auto) Not (unit s (unknown) date) Reportable unknown) (unknown) (no (unknown) (unknown) Baso % (Auto) (units ( unknown) date) unknown) (unknown) (no (unknown) (unknown) Baso % (Auto) Not (unit s (unknown) date) Reportable unknown) (unknown) (no (unknown) (unknown) Blood Culture Stat (units (unknown) date) unknown) (unknown) (no (unknown) (unknown) Blood Pressure (units (unknown) date) unknown) (unknown) (no (unknown) (unknown) Blood Pressure (units (unknown) date) 109/68 01/03/22 unknown) 09:55 (unknown) (no (unknown) (unknown) Blood Pressure (units (unknown) date) 109/68 121/75 unknown) (unknown) (no (unknown) (unknown) Blood Pressure (units (unknown) date) 116/59 L 128/66 unknown) (unknown) (no (unknown) (unknown) CMP [Comprehensive (units (unknown) date) Metabolic Panel] unknown) Stat (unknown) (no (unknown) (unknown) COVID19 -Nasal (units (unknown) date) RAPID/Pre-Proc Stat unknown) (unknown) (no (unknown) (unknown) Calcium (units (unkno wn) date) (8.4-10.2) mg/dL unknown) (unknown) (no (unknown) (unknown) Calcium 8.6 (units (unknown) date) (8.4-10.2) mg/dL unknown) (unknown) (no (unknown) (unknown) Carbon Dioxide (units (unknown) date) (22-32) mmol/L unknown) (unknown) (no (unknown) (unknown) Carbon Dioxide (units (unknown) date) 29 (22-32) mmol/L unknown) (unknown) (no (unknown) (unknown) Cardio: denies (units (unknown) date) chest pain, unknown) palpitations, edema (unknown) (no (unknown) (unknown) Chief Complaint: (units (unknown) date) Weakness unknown) (unknown) (no (unknown) (unknown) Chlamydia Gonorrhea (unit s (unknown) date) PCR -URINE Stat unknown) (unknown) (no (unknown) (unknown) Chloride (units (unkno wn) date) (98-107) mmol/L unknown) (unknown) (no (unknown) (unknown) Chloride 102 (units (unknown) date) (98-107) mmol/L unknown) (unknown) (no (unknown) (unknown) Complete Blood (units (unknown) date) Count AUTO DIFF Stat unknown) (unknown) (no (unknown) (unknown) Course (units (unkno wn) date) unknown) (unknown) (no (unknown) (unknown) Creatinine (units (unk nown) date) (0.52-1.04) mg/dL unknown) (unknown) (no (unknown) (unknown) Creatinine 0.47 (units (unknown) date) L (0.52-1.04) unknown) mg/dL (unknown) (no (unknown) (unknown) : 1995 (units (unknown) date) Acct:[id number] unknown) (unknown) (no (unknown) (unknown) Departure (units (unkn own) date) unknown) (unknown) (no (unknown) (unknown) Discharge Plan (units (unknown) date) unknown) (unknown) (no (unknown) (unknown) Discontinued (units (u nknown) date) Medications unknown) (unknown) (no (unknown) (unknown) ER Physician: (units ( unknown) date) Janis Neely unknown) (unknown) (no (unknown) (unknown) Eos % (Auto) (units (u nknown) date) unknown) (unknown) (no (unknown) (unknown) Eos % (Auto) Not (units (unknown) date) Reportable unknown) (unknown) (no (unknown) (unknown) Eosinophils % (units ( unknown) date) (Manual) (2-4) unknown) % (unknown) (no (unknown) (unknown) Eosinophils % (units ( unknown) date) (Manual) 1.0 L unknown) (2-4) % (unknown) (no (unknown) (unknown) Estimated GFR (units ( unknown) date) (>60) mL/min unknown) (unknown) (no (unknown) (unknown) Estimated GFR > (units (unknown) date) 60 (>60) mL/min unknown) (unknown) (no (unknown) (unknown) Evaluation (units (unk nown) date) unknown) (unknown) (no (unknown) (unknown) Exam (units (unkno wn) date) unknown) (unknown) (no (unknown) (unknown) Eyes: denies visual (unit s (unknown) date) changes, eye pain unknown) (unknown) (no (unknown) (unknown) GI: denies (units (unk nown) date) abdominal pain, unknown) nausea, vomiting, or diarrhea (unknown) (no (unknown) (unknown) : denies dysuria, (unit s (unknown) date) hematuria, urinary unknown) retention, frequency or incontinence (unknown) (no (unknown) (unknown) General (units (unkno wn) date) unknown) (unknown) (no (unknown) (unknown) General: Endorses (units (unknown) date) chills, malaise, unknown) sweats, fatigue (unknown) (no (unknown) (unknown) GenericComposite[Pl (unit s (unknown) date) t Count unknown) (150-400) X10^3/uL ] (unknown) (no (unknown) (unknown) GenericComposite[Pl (unit s (unknown) date) t Count 800 H unknown) (150-400) X10^3/uL ] (unknown) (no (unknown) (unknown) GenericComposite[RB (unit s (unknown) date) C (4.0-5.2) unknown) X10^6/uL ] (unknown) (no (unknown) (unknown) GenericComposite[RB (unit s (unknown) date) C 3.55 L unknown) (4.0-5.2) X10^6/uL ] (unknown) (no (unknown) (unknown) GenericComposite[WB (unit s (unknown) date) C (4.5-11.0) unknown) X10^3/uL ] (unknown) (no (unknown) (unknown) GenericComposite[WB (unit s (unknown) date) C 7.1 (4.5-11.0) unknown) X10^3/uL ] (unknown) (no (unknown) (unknown) Globulin (units (unkno wn) date) (1.7-4.1) g/dL unknown) (unknown) (no (unknown) (unknown) Globulin 6.4 H (units (unknown) date) (1.7-4.1) g/dL unknown) (unknown) (no (unknown) (unknown) Glucose (units (unkno wn) date) (70-100) mg/dL unknown) (unknown) (no (unknown) (unknown) Glucose 118 H (units (unknown) date) (70-100) mg/dL unknown) (unknown) (no (unknown) (unknown) Glucose POC 136 (units (unknown) date) unknown) (unknown) (no (unknown) (unknown) HPI - Sepsis (units (u nknown) date) unknown) (unknown) (no (unknown) (unknown) Hct (36-46) % (units (unknown) date) unknown) (unknown) (no (unknown) (unknown) Hct 25.2 L (units (u nknown) date) (36-46) % unknown) (unknown) (no (unknown) (unknown) Head/Neck: denies (units (unknown) date) headache, neck pain, unknown) dizziness (unknown) (no (unknown) (unknown) Hgb (12.0-16.0) (unit s (unknown) date) g/dL unknown) (unknown) (no (unknown) (unknown) Hgb 8.1 L (units (un known) date) (12.0-16.0) g/dL unknown) (unknown) (no (unknown) (unknown) Hypochromasia (units ( unknown) date) unknown) (unknown) (no (unknown) (unknown) Hypochromasia 1+ (units (unknown) date) H unknown) (unknown) (no (unknown) (unknown) IV antimicrobials (units (unknown) date) will be initiated as unknown) soon as possible after recognition of (unknown) (no (unknown) (unknown) Initial Vital Signs (unit s (unknown) date) unknown) (unknown) (no (unknown) (unknown) Initial Vital (units ( unknown) date) Signs: unknown) (unknown) (no (unknown) (unknown) Lab Data (units (unkno wn) date) unknown) (unknown) (no (unknown) (unknown) Labs: (units (unkno wn) date) unknown) (unknown) (no (unknown) (unknown) Lactate (units (unkno wn) date) (0.7-2.1) mmol/L unknown) (unknown) (no (unknown) (unknown) Lactate 1.2 (units (u nknown) date) (0.7-2.1) mmol/L unknown) (unknown) (no (unknown) (unknown) Lactate (Lactic (units (unknown) date) Acid) Stat unknown) (unknown) (no (unknown) (unknown) Level 1 - Infection (unit s (unknown) date) unknown) (unknown) (no (unknown) (unknown) Limitations: no (units (unknown) date) limitations unknown) (unknown) (no (unknown) (unknown) Lumbago with (units (u nknown) date) sciatica unknown) (unknown) (no (unknown) (unknown) Lumbosacral (units (un known) date) radiculopathy at L5 unknown) (unknown) (no (unknown) (unknown) Lymph # (Auto) (units (unknown) date) unknown) (unknown) (no (unknown) (unknown) Lymph # (Auto) (units (unknown) date) Not Reportable unknown) (unknown) (no (unknown) (unknown) Lymph % (Auto) (units (unknown) date) unknown) (unknown) (no (unknown) (unknown) Lymph % (Auto) (units (unknown) date) Not Reportable unknown) (unknown) (no (unknown) (unknown) Lymphocytes % (units ( unknown) date) (Manual) (25-45) unknown) % (unknown) (no (unknown) (unknown) Lymphocytes % (units ( unknown) date) (Manual) 35.0 unknown) (25-45) % (unknown) (no (unknown) (unknown) MCH (26-34) PG (unit s (unknown) date) unknown) (unknown) (no (unknown) (unknown) MCH 22.7 L (units (u nknown) date) (26-34) PG unknown) (unknown) (no (unknown) (unknown) MCHC (30-36) % (unit s (unknown) date) unknown) (unknown) (no (unknown) (unknown) MCHC 32.0 (units (un known) date) (30-36) % unknown) (unknown) (no (unknown) (unknown) MCV (80-100) (units (unknown) date) fL unknown) (unknown) (no (unknown) (unknown) MCV 71.1 L (units (u nknown) date) (80-100) fL unknown) (unknown) (no (unknown) (unknown) MDM - Sepsis (units (u nknown) date) unknown) (unknown) (no (unknown) (unknown) MSK: denies joint (units (unknown) date) pain, muscle unknown) weakness (unknown) (no (unknown) (unknown) Medical History (units (unknown) date) (Updated 12/10/21 @ unknown) 12:24 by Kamari Rosado DO) (unknown) (no (unknown) (unknown) Microcytosis (units (u nknown) date) unknown) (unknown) (no (unknown) (unknown) Microcytosis 1+ H (unit s (unknown) date) unknown) (unknown) (no (unknown) (unknown) Mode of arrival: (units (unknown) date) Wheelchair unknown) (unknown) (no (unknown) (unknown) [place] # (Auto) (units ( unknown) date) unknown) (unknown) (no (unknown) (unknown) [place] # (Auto) Not (unit s (unknown) date) Reportable unknown) (unknown) (no (unknown) (unknown) [place] % (Auto) (units ( unknown) date) unknown) (unknown) (no (unknown) (unknown) [place] % (Auto) Not (unit s (unknown) date) Reportable unknown) (unknown) (no (unknown) (unknown) Monocytes % (units (un known) date) (Manual) (2-11) unknown) % (unknown) (no (unknown) (unknown) Monocytes % (units (un known) date) (Manual) 7.0 unknown) (2-11) % (unknown) (no (unknown) (unknown) Narrative: (units (unk nown) date) unknown) (unknown) (no (unknown) (unknown) Neuro: denies (units ( unknown) date) numbness, tingling unknown) (unknown) (no (unknown) (unknown) Neut % (Auto) (units ( unknown) date) unknown) (unknown) (no (unknown) (unknown) Neut % (Auto) Not (unit s (unknown) date) Reportable unknown) (unknown) (no (unknown) (unknown) Neutrophils # (units ( unknown) date) (Manual) unknown) ([phone]) /uL (unknown) (no (unknown) (unknown) Neutrophils # (units ( unknown) date) (Manual) 3834 unknown) ([phone]) /uL (unknown) (no (unknown) (unknown) No Action (units (unkn own) date) unknown) (unknown) (no (unknown) (unknown) Ondansetron HCl (units (unknown) date) (Ondansetron 4 Mg/2 unknown) Ml Inj) 4 mg IV NOW ONE (unknown) (no (unknown) (unknown) Ordered: (units (unkno wn) date) unknown) (unknown) (no (unknown) (unknown) Orders (units (unkno wn) date) unknown) (unknown) (no (unknown) (unknown) Patient History (units (unknown) date) unknown) (unknown) (no (unknown) (unknown) Patient: (units (unkno wn) date) Isabelle Frey unknown) MR#: [id number] (unknown) (no (unknown) (unknown) Platelet Estimate (units (unknown) date) unknown) (unknown) (no (unknown) (unknown) Platelet Estimate (units (unknown) date) Increased on smear unknown) (unknown) (no (unknown) (unknown) Potassium (units (unkn own) date) (3.4-5.1) mmol/L unknown) (unknown) (no (unknown) (unknown) Potassium 3.9 (units (unknown) date) (3.4-5.1) mmol/L unknown) (unknown) (no (unknown) (unknown) Prescriptions: (units (unknown) date) unknown) (unknown) (no (unknown) (unknown) Procalcitonin (units ( unknown) date) (<0.5) ng/mL unknown) (unknown) (no (unknown) (unknown) Procalcitonin (units ( unknown) date) 0.14 (<0.5) ng/mL unknown) (unknown) (no (unknown) (unknown) Procalcitonin Stat (units (unknown) date) unknown) (unknown) (no (unknown) (unknown) Pulse Oximetry (units (unknown) date) unknown) (unknown) (no (unknown) (unknown) Pulse Oximetry 99 (units (unknown) date) 01/03/22 09:55 unknown) (unknown) (no (unknown) (unknown) Pulse Oximetry 99 (units (unknown) date) 92 100 unknown) (unknown) (no (unknown) (unknown) Pulse Oximetry 99 (units (unknown) date) 99 99 unknown) (unknown) (no (unknown) (unknown) Pulse Rate (units (unk nown) date) unknown) (unknown) (no (unknown) (unknown) Pulse Rate 109 H (units (unknown) date) 01/03/22 09:55 unknown) (unknown) (no (unknown) (unknown) Pulse Rate 109 H 96 (unit s (unknown) date) H 95 H unknown) (unknown) (no (unknown) (unknown) Pulse Rate 86 98 H (units (unknown) date) 92 H unknown) (unknown) (no (unknown) (unknown) RBC Morphology (units (unknown) date) unknown) (unknown) (no (unknown) (unknown) RBC Morphology (units (unknown) date) See below unknown) (unknown) (no (unknown) (unknown) RDW (11.6-14.8) (unit s (unknown) date) % unknown) (unknown) (no (unknown) (unknown) RDW 18.9 H (units (u nknown) date) (11.6-14.8) % unknown) (unknown) (no (unknown) (unknown) Respiratory Rate (units (unknown) date) unknown) (unknown) (no (unknown) (unknown) Respiratory Rate (units (unknown) date) 17 unknown) (unknown) (no (unknown) (unknown) Respiratory Rate (units (unknown) date) 20 01/03/22 09:55 unknown) (unknown) (no (unknown) (unknown) Respiratory Rate 20 (unit s (unknown) date) 22 16 unknown) (unknown) (no (unknown) (unknown) Respiratory: denies (unit s (unknown) date) dyspnea, cough, unknown) orthopnea (unknown) (no (unknown) (unknown) Result diagrams: (units (unknown) date) unknown) (unknown) (no (unknown) (unknown) Review of Systems (units (unknown) date) unknown) (unknown) (no (unknown) (unknown) SARS-CoV-2 (PCR) (units (unknown) date) (Negative) unknown) (unknown) (no (unknown) (unknown) SARS-CoV-2 (PCR) (units (unknown) date) Negative unknown) (Negative) (unknown) (no (unknown) (unknown) Seg Neutrophils % (units (unknown) date) (38-70) % unknown) (unknown) (no (unknown) (unknown) Seg Neutrophils % (units (unknown) date) 54.0 (38-70) % unknown) (unknown) (no (unknown) (unknown) Sepsis Guideline (units (unknown) date) Criteria unknown) (unknown) (no (unknown) (unknown) Sepsis Infection (units (unknown) date) Criteria Present: unknown) None (unknown) (no (unknown) (unknown) Sepsis Screen: No (units (unknown) date) Definite Risk unknown) (unknown) (no (unknown) (unknown) Signed By: (units (unk nown) date) unknown) (unknown) (no (unknown) (unknown) Skin: denies rash, (units (unknown) date) itching, skin unknown) lesions or other (unknown) (no (unknown) (unknown) Smoking Status: (units (unknown) date) Never smoker unknown) (unknown) (no (unknown) (unknown) Smoking Status: (units (unknown) date) Never smoker unknown) (unknown) (no (unknown) (unknown) Social History (units (unknown) date) (Reviewed 11/14/21 @ unknown) 14:51 by Jarrell Landa PA-C) (unknown) (no (unknown) (unknown) Sodium (units (unkno wn) date) (137-145) mmol/L unknown) (unknown) (no (unknown) (unknown) Sodium 138 (units ( unknown) date) (137-145) mmol/L unknown) (unknown) (no (unknown) (unknown) Sodium Chloride (units (unknown) date) (Normal Saline 0.9%) unknown) 1,000 mls @ 1,000 mls/hr IV BOLUS ONE (unknown) (no (unknown) (unknown) Source: patient (units (unknown) date) unknown) (unknown) (no (unknown) (unknown) Substance Use Type: (unit s (unknown) date) marijuana unknown) (unknown) (no (unknown) (unknown) Temperature (units (un known) date) unknown) (unknown) (no (unknown) (unknown) Temperature 98.0 F (unit s (unknown) date) 01/03/22 09:55 unknown) (unknown) (no (unknown) (unknown) Temperature 98.0 F (units (unknown) date) unknown) (unknown) (no (unknown) (unknown) Temperature 98.3 F (units (unknown) date) unknown) (unknown) (no (unknown) (unknown) This is a (units (unkn own) date) 26-year-old female unknown) with a history of psoriatic arthritis and has (unknown) (no (unknown) (unknown) Total Bilirubin (units (unknown) date) (0.2-1.3) mg/dL unknown) (unknown) (no (unknown) (unknown) Total Bilirubin (units (unknown) date) 0.3 (0.2-1.3) unknown) mg/dL (unknown) (no (unknown) (unknown) Total Counted (units ( unknown) date) unknown) (unknown) (no (unknown) (unknown) Total Counted 100 (unit s (unknown) date) unknown) (unknown) (no (unknown) (unknown) Total Protein (units ( unknown) date) (6.3-8.2) g/dL unknown) (unknown) (no (unknown) (unknown) Total Protein (units ( unknown) date) 9.8 H* (6.3-8.2) unknown) g/dL (unknown) (no (unknown) (unknown) Treatment Initiated (unit s (unknown) date) unknown) (unknown) (no (unknown) (unknown) Ur Culture (units (unk nown) date) Indicated? unknown) (unknown) (no (unknown) (unknown) Ur Culture (units (unk nown) date) Indicated? unknown) Specimen cultured (unknown) (no (unknown) (unknown) Ur Leukocyte (units (u nknown) date) Esterase unknown) (NEGATIVE) (unknown) (no (unknown) (unknown) Ur Leukocyte (units (u nknown) date) Esterase 1+ H unknown) (NEGATIVE) (unknown) (no (unknown) (unknown) Ur Specific [place] (unit s (unknown) date) (1.000-1.035) unknown) (unknown) (no (unknown) (unknown) Ur Specific [place] (unit s (unknown) date) 1.010 unknown) (1.000-1.035) (unknown) (no (unknown) (unknown) Ur Squamous Epith (units (unknown) date) Cells (0-5/HPF) unknown) (unknown) (no (unknown) (unknown) Ur Squamous Epith (units (unknown) date) Cells 1-5 /hpf unknown) (0-5/HPF) (unknown) (no (unknown) (unknown) Urinalysis and (units (unknown) date) Microscopic Stat unknown) (unknown) (no (unknown) (unknown) Urine Appearance (units (unknown) date) unknown) (unknown) (no (unknown) (unknown) Urine Appearance (units (unknown) date) Clear unknown) (unknown) (no (unknown) (unknown) Urine Bacteria (units (unknown) date) (None) unknown) (unknown) (no (unknown) (unknown) Urine Bacteria (units (unknown) date) None seen (None) unknown) (unknown) (no (unknown) (unknown) Urine Bilirubin (units (unknown) date) (NEGATIVE) unknown) (unknown) (no (unknown) (unknown) Urine Bilirubin (units (unknown) date) Negative (NEGATIVE) unknown) (unknown) (no (unknown) (unknown) Urine Color (units (un known) date) unknown) (unknown) (no (unknown) (unknown) Urine Color (units (un known) date) Yellow unknown) (unknown) (no (unknown) (unknown) Urine Culture Stat (units (unknown) date) unknown) (unknown) (no (unknown) (unknown) Urine Glucose (UA) (units (unknown) date) (Negative) g/dL unknown) (unknown) (no (unknown) (unknown) Urine Glucose (UA) (units (unknown) date) Negative unknown) (Negative) g/dL (unknown) (no (unknown) (unknown) Urine Ketones (units ( unknown) date) (NEGATIVE) unknown) (unknown) (no (unknown) (unknown) Urine Ketones (units ( unknown) date) Negative (NEGATIVE) unknown) (unknown) (no (unknown) (unknown) Urine Nitrate (units ( unknown) date) (Negative) unknown) (unknown) (no (unknown) (unknown) Urine Nitrate (units ( unknown) date) Negative (Negative) unknown) (unknown) (no (unknown) (unknown) Urine Occult Blood (units (unknown) date) (Negative) unknown) (unknown) (no (unknown) (unknown) Urine Occult Blood (units (unknown) date) 3+ H (Negative) unknown) (unknown) (no (unknown) (unknown) Urine Protein (units ( unknown) date) (Negative) unknown) (unknown) (no (unknown) (unknown) Urine Protein (units ( unknown) date) Negative (Negative) unknown) (unknown) (no (unknown) (unknown) Urine RBC (units (unkn own) date) (0-5/HPF) unknown) (unknown) (no (unknown) (unknown) Urine RBC (units (unkn own) date) 10-30/hpf H unknown) (0-5/HPF) (unknown) (no (unknown) (unknown) Urine Urobilinogen (units (unknown) date) (0.2) E.U./dL unknown) (unknown) (no (unknown) (unknown) Urine Urobilinogen (units (unknown) date) 0.2 (0.2) unknown) E.U./dL (unknown) (no (unknown) (unknown) Urine WBC (units (unkn own) date) (0-5/HPF) unknown) (unknown) (no (unknown) (unknown) Urine WBC (units (unkn own) date) 5-10/hpf H unknown) (0-5/HPF) (unknown) (no (unknown) (unknown) Urine pH (units (unkno wn) date) (4.5-8.0) unknown) (unknown) (no (unknown) (unknown) Urine pH 6.5 (units (unknown) date) (4.5-8.0) unknown) (unknown) (no (unknown) (unknown) Vital Signs (units (un known) date) unknown) (unknown) (no (unknown) (unknown) Vital signs: (units (u nknown) date) unknown) (unknown) (no (unknown) (unknown) Wet Prep Tric BV (units (unknown) date) [place] Stat unknown) (unknown) (no (unknown) (unknown) [Embedded Image Not (unit s (unknown) date) Available] unknown) (unknown) (no (unknown) (unknown) alcohol intake (units (unknown) date) frequency: 0-2 unknown) drinks per day (unknown) (no (unknown) (unknown) n over the last 2 (units (unknown) date) months which has not unknown) been getting much better after 2 courses (unknown) (no (unknown) (unknown) of steroids, muscle (unit s (unknown) date) relaxers, unknown) anti-inflammatories. Patient states that (unknown) (no (unknown) (unknown) presented to the (units (unknown) date) emergency department unknown) and walk-in clinic for lumbar repleted damian (unknown) (no (unknown) (unknown) sepsis state and (units (unknown) date) within one hour for unknown) both sepsis and septic shock. (unknown) (no (unknown) (unknown) yesterday at work (units (unknown) date) her co-worker unknown) thought that she was pale Result panel 12 (unknown) (no date) (unknown) (unknown) NOT DETECTED (units ( unknown) unknown) Result panel 13 (unknown) (no (unknown) (unknown) (no value) (units (unk nown) date) unknown) (unknown) (no (unknown) (unknown) *Please continue to (unit s (unknown) date) take your regular unknown) medications as directed. (unknown) (no (unknown) (unknown) Date of Service: (units (unknown) date) 01/03/22 unknown) (unknown) (no (unknown) (unknown) (no value) (units (unk nown) date) unknown) (unknown) (no (unknown) (unknown) 01/03/22 10:34 (units (unknown) date) unknown) (unknown) (no (unknown) (unknown) 1 patch topical (units (unknown) date) DAILY PRN (Reason: unknown) pain) Qty: 15 0RF (unknown) (no (unknown) (unknown) 10 mg PO BEDTIME (units (unknown) date) 0RF unknown) (unknown) (no (unknown) (unknown) 2 g topical QID PRN (unit s (unknown) date) (Reason: pain) Qty: unknown) 100 0RF (unknown) (no (unknown) (unknown) 50 mg PO BID PRN (units (unknown) date) (Reason: pain) Qty: unknown) 14 0RF (unknown) (no (unknown) (unknown) 600 mg PO QPM PRN (units (unknown) date) (Reason: sciatica) unknown) Qty: 14 0RF (unknown) (no (unknown) (unknown) 7.5 mg PO BEDTIME (units (unknown) date) PRN (Reason: muscle unknown) spasm) Qty: 60 0RF (unknown) (no (unknown) (unknown) 800 mg PO Q8H PRN (units (unknown) date) (Reason: pain) Qty: unknown) 21 0RF (unknown) (no (unknown) (unknown) 800 mg PO Q8H PRN (units (unknown) date) (Reason: pain) Qty: unknown) 30 0RF (unknown) (no (unknown) (unknown) 800 mg PO Q8H PRN (units (unknown) date) (Reason: pain) Qty: unknown) 60 0RF (unknown) (no (unknown) (unknown) Admin: 01/03/22 (units (unknown) date) 12:50 Dose: 1,000 unknown) mls/hr (unknown) (no (unknown) (unknown) Documented by: (units (unknown) date) KSWANSO unknown) (unknown) (no (unknown) (unknown) Documented by: (units (unknown) date) NRHOADS unknown) (unknown) (no (unknown) (unknown) ED Orders (units (unkn own) date) unknown) (unknown) (no (unknown) (unknown) Emergency Report (units (unknown) date) unknown) (unknown) (no (unknown) (unknown) [facility] (units (unknown) date) [address] unknown) [place] [address] (unknown) (no (unknown) (unknown) Lab Results (units (un known) date) unknown) (unknown) (no (unknown) (unknown) Last Admin: (units (un known) date) 01/03/22 12:50 unknown) Dose: 4 mg (unknown) (no (unknown) (unknown) Last Admin: (units (un known) date) 01/03/22 14:33 unknown) Dose: 10 mg (unknown) (no (unknown) (unknown) Last Admin: (units (un known) date) 01/03/22 14:33 unknown) Dose: 15 mg (unknown) (no (unknown) (unknown) Last Infusion: (units (unknown) date) 01/03/22 13:53 unknown) Dose: 0 mls/hr (unknown) (no (unknown) (unknown) PO PER PKG DIR (units (unknown) date) unknown) (unknown) (no (unknown) (unknown) Point of Care (units ( unknown) date) Testing unknown) (unknown) (no (unknown) (unknown) Rx Instructions: (units (unknown) date) unknown) (unknown) (no (unknown) (unknown) See Rx Instructions (unit s (unknown) date) PO PER PKG DIR Qty: unknown) 21 0RF (unknown) (no (unknown) (unknown) Stop: 01/03/22 (units (unknown) date) 12:37 unknown) (unknown) (no (unknown) (unknown) Stop: 01/03/22 (units (unknown) date) 13:35 unknown) (unknown) (no (unknown) (unknown) Stop: 01/03/22 (units (unknown) date) 14:21 unknown) (unknown) (no (unknown) (unknown) Stop: 01/03/22 (units (unknown) date) 14:24 unknown) (unknown) (no (unknown) (unknown) Vital Signs - 8 hr (units (unknown) date) unknown) (unknown) (no (unknown) (unknown) [ ] New medication (units (unknown) date) written as a paper unknown) prescription (unknown) (no (unknown) (unknown) [ ] No new (units (unk nown) date) medications given unknown) (unknown) (no (unknown) (unknown) [x ] New medication (unit s (unknown) date) prescriptions sent unknown) to your pharmacy: [ [facility]] (unknown) (no (unknown) (unknown) apply to single (units (unknown) date) elbow, wrist or unknown) hand; for hand includes palm/fingers/back of (unknown) (no (unknown) (unknown) leave on most (units ( unknown) date) painful area for up unknown) to 12 hrs (unknown) (no (unknown) (unknown) (no value) (units (unk nown) date) unknown) (unknown) (no (unknown) (unknown) 01/03/22 01/03/22 (units (unknown) date) 01/03/22 Range/Units unknown) (unknown) (no (unknown) (unknown) 01/03/22 (units (unkno wn) date) Range/Units unknown) (unknown) (no (unknown) (unknown) 09:56 10:34 10:34 (units (unknown) date) unknown) (unknown) (no (unknown) (unknown) 10:39 10:39 12:40 (units (unknown) date) unknown) (unknown) (no (unknown) (unknown) 12:40 (units (unkno wn) date) unknown) (unknown) (no (unknown) (unknown) cyclobenzaprine 10 (units (unknown) date) mg tablet unknown) (unknown) (no (unknown) (unknown) cyclobenzaprine 7.5 (unit s (unknown) date) mg tablet unknown) (unknown) (no (unknown) (unknown) diclofenac sodium (units (unknown) date) [Voltaren Arthritis unknown) Pain] 1 % gel (unknown) (no (unknown) (unknown) gabapentin 600 mg (units (unknown) date) tablet extended unknown) release 24 hr (unknown) (no (unknown) (unknown) ibuprofen 800 mg (units (unknown) date) tablet unknown) (unknown) (no (unknown) (unknown) lidocaine (units (unkn own) date) [Lidoderm] 5 % unknown) adhesive patch,medicated (unknown) (no (unknown) (unknown) methylprednisolone (units (unknown) date) [Medrol (Luis)] 4 mg unknown) tablets,dose pack (unknown) (no (unknown) (unknown) tramadol 50 mg (units (unknown) date) tablet unknown) (unknown) (no (unknown) (unknown) 01/03/22 (units (unkno wn) date) unknown) (unknown) (no (unknown) (unknown) Chronicity: acute (units (unknown) date) Back pain unknown) laterality: left Sciatica laterality: sciatica of (unknown) (no (unknown) (unknown) Psoriatic arthritis (unit s (unknown) date) unknown) (unknown) (no (unknown) (unknown) a creatinine 0.47 (units (unknown) date) you did not have any unknown) significant signs of dehydration on your (unknown) (no (unknown) (unknown) care provider as (units (unknown) date) soon as possible. unknown) Please request follow-up from the emergency (unknown) (no (unknown) (unknown) chills, fever, (units (unknown) date) abdominal pain or unknown) vomiting. 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 She is encouraged to go back to the (unknown) (no (unknown) (unknown) lab work, your (units (unknown) date) urine does not unknown) infection, your vaginal secretions did not have (unknown) (no (unknown) (unknown) suggestive of (units ( unknown) date) muscle spasm, no unknown) significant canal or foraminal stenosis, no (unknown) (no (unknown) (unknown) the emergency (units ( unknown) date) department for unknown) ongoing low back pain with sciatica on the left, (unknown) (no (unknown) (unknown) to your steroids (units (unknown) date) you been on this unknown) month and your history of psoriatic (unknown) (no (unknown) (unknown) *If you do not have (unit s (unknown) date) a primary care unknown) provider please contact [phone] to (unknown) (no (unknown) (unknown) *Please follow up (units (unknown) date) with your primary unknown) care provider in 2-3 days, call for an (unknown) (no (unknown) (unknown) *Return to (units (unk nown) date) Emergency Department unknown) if you should have any new, worsening or (unknown) (no (unknown) (unknown) *What to do: (units (u nknown) date) unknown) (unknown) (no (unknown) (unknown) *You have been (units (unknown) date) diagnosed with back unknown) pain with sciatica, groin and pelvis pain (unknown) (no (unknown) (unknown) 01/03/22 09:56 (units (unknown) date) unknown) (unknown) (no (unknown) (unknown) 01/03/22 10:34 (units (unknown) date) unknown) (unknown) (no (unknown) (unknown) 01/03/22 10:39 (units (unknown) date) unknown) (unknown) (no (unknown) (unknown) 01/03/22 12:40 (units (unknown) date) unknown) (unknown) (no (unknown) (unknown) 01/03/22 12:55 (units (unknown) date) unknown) (unknown) (no (unknown) (unknown) 01/03/22 13:25 (units (unknown) date) unknown) (unknown) (no (unknown) (unknown) 09:55 01/03/22 (units (unknown) date) unknown) (unknown) (no (unknown) (unknown) 11:36 01/03/22 (units (unknown) date) unknown) (unknown) (no (unknown) (unknown) 11:37 (units (unkno wn) date) unknown) (unknown) (no (unknown) (unknown) 12:00 01/03/22 (units (unknown) date) unknown) (unknown) (no (unknown) (unknown) 12:42 01/03/22 (units (unknown) date) unknown) (unknown) (no (unknown) (unknown) 12:44 (units (unkno wn) date) unknown) (unknown) (no (unknown) (unknown) 13:00 01/03/22 (units (unknown) date) unknown) (unknown) (no (unknown) (unknown) 13:26 01/03/22 (units (unknown) date) unknown) (unknown) (no (unknown) (unknown) 13:30 (units (unkno wn) date) unknown) (unknown) (no (unknown) (unknown) 14:00 01/03/22 (units (unknown) date) unknown) (unknown) (no (unknown) (unknown) 14:30 (units (unkno wn) date) unknown) (unknown) (no (unknown) (unknown) 2019 and has not had (unit s (unknown) date) a menses but has unknown) started spotting recently. She denies any (unknown) (no (unknown) (unknown) [id number] (units (unkno wn) date) unknown) (unknown) (no (unknown) (unknown) ALT (<35) IU/L (unit s (unknown) date) unknown) (unknown) (no (unknown) (unknown) ALT 19 (<35) (units (unknown) date) IU/L unknown) (unknown) (no (unknown) (unknown) ALT (<35) IU/L (units (unknown) date) unknown) (unknown) (no (unknown) (unknown) AST (14-36) (units (unknown) date) IU/L unknown) (unknown) (no (unknown) (unknown) AST 21 (14-36) (units (unknown) date) IU/L unknown) (unknown) (no (unknown) (unknown) AST (14-36) IU/L (unit s (unknown) date) unknown) (unknown) (no (unknown) (unknown) Activity (units (unkno wn) date) Restrictions/Additio unknown) nal Instructions: (unknown) (no (unknown) (unknown) Age/Sex: 26 / F (units (unknown) date) unknown) (unknown) (no (unknown) (unknown) [place], 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, she has not (unknown) (no (unknown) (unknown) Albumin (units (unkno wn) date) (3.5-5.0) g/dL unknown) (unknown) (no (unknown) (unknown) Albumin 3.4 L (units (unknown) date) (3.5-5.0) g/dL unknown) (unknown) (no (unknown) (unknown) Albumin (3.5-5.0) (unit s (unknown) date) g/dL unknown) (unknown) (no (unknown) (unknown) Albumin/Globulin (units (unknown) date) Ratio (1.0-2.8) unknown) (unknown) (no (unknown) (unknown) Albumin/Globulin (units (unknown) date) Ratio 0.5 L unknown) (1.0-2.8) (unknown) (no (unknown) (unknown) Albumin/Globulin (units (unknown) date) Ratio (1.0-2.8) unknown) (unknown) (no (unknown) (unknown) Alkaline (units (unkno wn) date) Phosphatase unknown) (38-126) U/L (unknown) (no (unknown) (unknown) Alkaline (units (unkno wn) date) Phosphatase 109 unknown) (38-126) U/L (unknown) (no (unknown) (unknown) Alkaline (units (unkno wn) date) Phosphatase unknown) (38-126) U/L (unknown) (no (unknown) (unknown) Anisocytosis (units (u nknown) date) unknown) (unknown) (no (unknown) (unknown) Anisocytosis (units (u nknown) date) unknown) (unknown) (no (unknown) (unknown) Anisocytosis 1+ H (unit s (unknown) date) unknown) (unknown) (no (unknown) (unknown) Antibiotics:: (units ( unknown) date) unknown) (unknown) (no (unknown) (unknown) Atypical Lymphs % (units (unknown) date) ( - 0) % unknown) (unknown) (no (unknown) (unknown) Atypical Lymphs % (units (unknown) date) 3.0 H ( - 0) % unknown) (unknown) (no (unknown) (unknown) Atypical Lymphs % (units (unknown) date) ( - 0) % unknown) (unknown) (no (unknown) (unknown) BUN (7-17) (units (unknown) date) mg/dL unknown) (unknown) (no (unknown) (unknown) BUN 7 (7-17) (units (unknown) date) mg/dL unknown) (unknown) (no (unknown) (unknown) BUN (7-17) mg/dL (unit s (unknown) date) unknown) (unknown) (no (unknown) (unknown) BUN/Creatinine (units (unknown) date) Ratio (6-22) unknown) (unknown) (no (unknown) (unknown) BUN/Creatinine (units (unknown) date) Ratio 14.9 unknown) (02-21) (unknown) (no (unknown) (unknown) BUN/Creatinine (units (unknown) date) Ratio (-) unknown) (unknown) (no (unknown) (unknown) Baso # (Auto) (units ( unknown) date) unknown) (unknown) (no (unknown) (unknown) Baso # (Auto) (units ( unknown) date) unknown) (unknown) (no (unknown) (unknown) Baso # (Auto) Not (unit s (unknown) date) Reportable unknown) (unknown) (no (unknown) (unknown) Baso % (Auto) (units ( unknown) date) unknown) (unknown) (no (unknown) (unknown) Baso % (Auto) (units ( unknown) date) unknown) (unknown) (no (unknown) (unknown) Baso % (Auto) Not (unit s (unknown) date) Reportable unknown) (unknown) (no (unknown) (unknown) Blood Culture Stat (units (unknown) date) unknown) (unknown) (no (unknown) (unknown) Blood Pressure (units (unknown) date) 109/68 01/03/22 unknown) 09:55 (unknown) (no (unknown) (unknown) Blood Pressure (units (unknown) date) 109 121/75 unknown) (unknown) (no (unknown) (unknown) Blood Pressure (units (unknown) date) 116/59 L 128/66 unknown) (unknown) (no (unknown) (unknown) Blood Pressure (units (unknown) date) 123/59 L 128/68 unknown) (unknown) (no (unknown) (unknown) Blood Pressure (units (unknown) date) 125/64 114/59 L unknown) (unknown) (no (unknown) (unknown) CMP [Comprehensive (units (unknown) date) Metabolic Panel] unknown) Stat (unknown) (no (unknown) (unknown) COVID19 -Nasal (units (unknown) date) RAPID/Pre-Proc Stat unknown) (unknown) (no (unknown) (unknown) Calcium (units (unkno wn) date) (8.4-10.2) mg/dL unknown) (unknown) (no (unknown) (unknown) Calcium 8.6 (units (unknown) date) (8.4-10.2) mg/dL unknown) (unknown) (no (unknown) (unknown) Calcium (units (unkno wn) date) (8.4-10.2) mg/dL unknown) (unknown) (no (unknown) (unknown) Carbon Dioxide (units (unknown) date) (22-32) mmol/L unknown) (unknown) (no (unknown) (unknown) Carbon Dioxide (units (unknown) date) 29 (22-32) mmol/L unknown) (unknown) (no (unknown) (unknown) Carbon Dioxide (units (unknown) date) (22-32) mmol/L unknown) (unknown) (no (unknown) (unknown) Cardio: denies (units (unknown) date) chest pain, unknown) palpitations, edema (unknown) (no (unknown) (unknown) Cardiovascular: (units (unknown) date) regular rate and unknown) rhythm, no peripheral edema, warm extremities (unknown) (no (unknown) (unknown) Chief Complaint: (units (unknown) date) Weakness unknown) (unknown) (no (unknown) (unknown) Chlamydia Gonorrhea (unit s (unknown) date) PCR -URINE Stat unknown) (unknown) (no (unknown) (unknown) Chloride (units (o wn) date) (98-107) mmol/L unknown) (unknown) (no (unknown) (unknown) Chloride 102 (units (unknown) date) (98-107) mmol/L unknown) (unknown) (no (unknown) (unknown) Chloride (98-107) (unit s (unknown) date) mmol/L unknown) (unknown) (no (unknown) (unknown) Clinical (units (o wn) date) Impression: unknown) (unknown) (no (unknown) (unknown) Complete Blood (units (unknown) date) Count AUTO DIFF Stat unknown) (unknown) (no (unknown) (unknown) Course (units (o wn) date) unknown) (unknown) (no (unknown) (unknown) Creatinine (units (unk nown) date) (0.52-1.04) mg/dL unknown) (unknown) (no (unknown) (unknown) Creatinine 0.47 (units (unknown) date) L (0.52-1.04) unknown) mg/dL (unknown) (no (unknown) (unknown) Creatinine (units (unk nown) date) (0.52-1.04) mg/dL unknown) (unknown) (no (unknown) (unknown) Cyclobenzaprine HCl (unit s (unknown) date) (Cyclobenzaprine 10 unknown) Mg Tablet) 10 mg PO NOW ONE (unknown) (no (unknown) (unknown) : 1995 (units (unknown) date) Acct:[id number] unknown) (unknown) (no (unknown) (unknown) Departure (units (unkn own) date) unknown) (unknown) (no (unknown) (unknown) Discharge Plan (units (unknown) date) unknown) (unknown) (no (unknown) (unknown) Discontinued (units (u nknown) date) Medications unknown) (unknown) (no (unknown) (unknown) ER Physician: (units ( unknown) date) Janis Neely unknown) (unknown) (no (unknown) (unknown) Eos % (Auto) (units (u nknown) date) unknown) (unknown) (no (unknown) (unknown) Eos % (Auto) (units (u nknown) date) unknown) (unknown) (no (unknown) (unknown) Eos % (Auto) Not (units (unknown) date) Reportable unknown) (unknown) (no (unknown) (unknown) Eosinophils % (units ( unknown) date) (Manual) (2-4) unknown) % (unknown) (no (unknown) (unknown) Eosinophils % (units ( unknown) date) (Manual) (2-4) % unknown) (unknown) (no (unknown) (unknown) Eosinophils % (units ( unknown) date) (Manual) 1.0 L unknown) (2-4) % (unknown) (no (unknown) (unknown) Estimated GFR (units ( unknown) date) (>60) mL/min unknown) (unknown) (no (unknown) (unknown) Estimated GFR > (units (unknown) date) 60 (>60) mL/min unknown) (unknown) (no (unknown) (unknown) Estimated GFR (units ( unknown) date) (>60) mL/min unknown) (unknown) (no (unknown) (unknown) Evaluation (units (unk nown) date) unknown) (unknown) (no (unknown) (unknown) Exam (units (unkno wn) date) unknown) (unknown) (no (unknown) (unknown) Exam Narrative: (units (unknown) date) unknown) (unknown) (no (unknown) (unknown) Eyes: denies visual (unit s (unknown) date) changes, eye pain unknown) (unknown) (no (unknown) (unknown) Eyes: pupils equal (units (unknown) date) round and reactive, unknown) EOMI, conjunctiva normal (unknown) (no (unknown) (unknown) GI: abdomen soft, (units (unknown) date) nontender to unknown) palpation, nondistended, no masses, no exquisite (unknown) (no (unknown) (unknown) GI: denies (units (unk nown) date) abdominal pain, unknown) nausea, vomiting, or diarrhea (unknown) (no (unknown) (unknown) : denies dysuria, (unit s (unknown) date) hematuria, urinary unknown) retention, frequency or incontinence (unknown) (no (unknown) (unknown) General (units (unkno wn) date) unknown) (unknown) (no (unknown) (unknown) General: Endorses (units (unknown) date) chills, malaise, unknown) sweats, fatigue (unknown) (no (unknown) (unknown) General: (units (unkno wn) date) cooperative, unknown) comfortable, in no acute distress, well developed and well (unknown) (no (unknown) (unknown) GenericComposite[Pl (unit s (unknown) date) t Count unknown) (150-400) X10^3/uL ] (unknown) (no (unknown) (unknown) GenericComposite[Pl (unit s (unknown) date) t Count (150-400) unknown) X10^3/uL ] (unknown) (no (unknown) (unknown) GenericComposite[Pl (unit s (unknown) date) t Count 800 H unknown) (150-400) X10^3/uL ] (unknown) (no (unknown) (unknown) GenericComposite[RB (unit s (unknown) date) C (4.0-5.2) unknown) X10^6/uL ] (unknown) (no (unknown) (unknown) GenericComposite[RB (unit s (unknown) date) C (4.0-5.2) unknown) X10^6/uL ] (unknown) (no (unknown) (unknown) GenericComposite[RB (unit s (unknown) date) C 3.55 L unknown) (4.0-5.2) X10^6/uL ] (unknown) (no (unknown) (unknown) GenericComposite[WB (unit s (unknown) date) C (4.5-11.0) unknown) X10^3/uL ] (unknown) (no (unknown) (unknown) GenericComposite[WB (unit s (unknown) date) C (4.5-11.0) unknown) X10^3/uL ] (unknown) (no (unknown) (unknown) GenericComposite[WB (unit s (unknown) date) C 7.1 (4.5-11.0) unknown) X10^3/uL ] (unknown) (no (unknown) (unknown) Globulin (units (unkno wn) date) (1.7-4.1) g/dL unknown) (unknown) (no (unknown) (unknown) Globulin 6.4 H (units (unknown) date) (1.7-4.1) g/dL unknown) (unknown) (no (unknown) (unknown) Globulin (units (unkno wn) date) (1.7-4.1) g/dL unknown) (unknown) (no (unknown) (unknown) Glucose (units (unkno wn) date) (70-100) mg/dL unknown) (unknown) (no (unknown) (unknown) Glucose 118 H (units (unknown) date) (70-100) mg/dL unknown) (unknown) (no (unknown) (unknown) Glucose (70-100) (units (unknown) date) mg/dL unknown) (unknown) (no (unknown) (unknown) Glucose POC 136 (units (unknown) date) unknown) (unknown) (no (unknown) (unknown) 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 (units ( unknown) date) discharge is clear unknown) with small brown spots likely from menses, no (unknown) (no (unknown) (unknown) HPI - Sepsis (units (u nknown) date) unknown) (unknown) (no (unknown) (unknown) Hct (36-46) % (units (unknown) date) unknown) (unknown) (no (unknown) (unknown) Hct (36-46) % (units (unknown) date) unknown) (unknown) (no (unknown) (unknown) Hct 25.2 L (units (u nknown) date) (36-46) % unknown) (unknown) (no (unknown) (unknown) Head/Neck: denies (units (unknown) date) headache, neck pain, unknown) dizziness (unknown) (no (unknown) (unknown) Head: atraumatic, (units (unknown) date) symmetrical facial unknown) expressions (unknown) (no (unknown) (unknown) Hgb (12.0-16.0) (unit s (unknown) date) g/dL unknown) (unknown) (no (unknown) (unknown) Hgb (12.0-16.0) (units (unknown) date) g/dL unknown) (unknown) (no (unknown) (unknown) Hgb 8.1 L (units (un known) date) (12.0-16.0) g/dL unknown) (unknown) (no (unknown) (unknown) Hypochromasia (units ( unknown) date) unknown) (unknown) (no (unknown) (unknown) Hypochromasia (units ( unknown) date) unknown) (unknown) (no (unknown) (unknown) Hypochromasia 1+ (units (unknown) date) H unknown) (unknown) (no (unknown) (unknown) IV antimicrobials (units (unknown) date) will be initiated as unknown) soon as possible after recognition of (unknown) (no (unknown) (unknown) Independently (units ( unknown) date) reviewed vitals unknown) signs and nursing notes. (unknown) (no (unknown) (unknown) Initial Vital Signs (unit s (unknown) date) unknown) (unknown) (no (unknown) (unknown) Initial Vital (units ( unknown) date) Signs: unknown) (unknown) (no (unknown) (unknown) Instructions: (units ( unknown) date) Sciatica unknown) (unknown) (no (unknown) (unknown) Ketorolac (units (unkn own) date) Tromethamine unknown) (Ketorolac 30 Mg/Ml Vial) 15 mg IV NOW ONE (unknown) (no (unknown) (unknown) Lab Data (units (unkno wn) date) unknown) (unknown) (no (unknown) (unknown) Labs: (units (unkno wn) date) unknown) (unknown) (no (unknown) (unknown) Lactate (units (unkno wn) date) (0.7-2.1) mmol/L unknown) (unknown) (no (unknown) (unknown) Lactate (0.7-2.1) (unit s (unknown) date) mmol/L unknown) (unknown) (no (unknown) (unknown) Lactate 1.2 (units (u nknown) date) (0.7-2.1) mmol/L unknown) (unknown) (no (unknown) (unknown) Lactate (Lactic (units (unknown) date) Acid) Stat unknown) (unknown) (no (unknown) (unknown) Level 1 - Infection (unit s (unknown) date) unknown) (unknown) (no (unknown) (unknown) Limitations: no (units (unknown) date) limitations unknown) (unknown) (no (unknown) (unknown) Lumbago with (units (u nknown) date) sciatica unknown) (unknown) (no (unknown) (unknown) Lumbosacral (units (un known) date) radiculopathy at L5 unknown) (unknown) (no (unknown) (unknown) Lymph # (Auto) (units (unknown) date) unknown) (unknown) (no (unknown) (unknown) Lymph # (Auto) (units (unknown) date) unknown) (unknown) (no (unknown) (unknown) Lymph # (Auto) (units (unknown) date) Not Reportable unknown) (unknown) (no (unknown) (unknown) Lymph % (Auto) (units (unknown) date) unknown) (unknown) (no (unknown) (unknown) Lymph % (Auto) (units (unknown) date) unknown) (unknown) (no (unknown) (unknown) Lymph % (Auto) (units (unknown) date) Not Reportable unknown) (unknown) (no (unknown) (unknown) Lymphocytes % (units ( unknown) date) (Manual) (25-45) unknown) % (unknown) (no (unknown) (unknown) Lymphocytes % (units ( unknown) date) (Manual) (45) unknown) % (unknown) (no (unknown) (unknown) Lymphocytes % (units ( unknown) date) (Manual) 35.0 unknown) (45) % (unknown) (no (unknown) (unknown) MCH (26-34) PG (unit s (unknown) date) unknown) (unknown) (no (unknown) (unknown) MCH (26-34) PG (units (unknown) date) unknown) (unknown) (no (unknown) (unknown) MCH 22.7 L (units (u nknown) date) (26-34) PG unknown) (unknown) (no (unknown) (unknown) MCHC (30-36) % (unit s (unknown) date) unknown) (unknown) (no (unknown) (unknown) MCHC (30-36) % (units (unknown) date) unknown) (unknown) (no (unknown) (unknown) MCHC 32.0 (units (un known) date) (30-36) % unknown) (unknown) (no (unknown) (unknown) MCV (80-100) (units (unknown) date) fL unknown) (unknown) (no (unknown) (unknown) MCV (80-100) fL (units (unknown) date) unknown) (unknown) (no (unknown) (unknown) MCV 71.1 L (units (u nknown) date) (80-100) fL unknown) (unknown) (no (unknown) (unknown) MDM - Sepsis (units (u nknown) date) unknown) (unknown) (no (unknown) (unknown) MDM Narrative (units ( unknown) date) unknown) (unknown) (no (unknown) (unknown) MRI 2 days ago for (units (unknown) date) her lumbar. She is unknown) pending a primary care provider at this (unknown) (no (unknown) (unknown) MSK: denies joint (units (unknown) date) pain, muscle unknown) weakness, endorses low back pain which is (unknown) (no (unknown) (unknown) MSK: moves all (units ( unknown) date) extremities, unknown) ambulatory w/steady gait, neurovascularly intact, no (unknown) (no (unknown) (unknown) Medical History (units (unknown) date) (Reviewed 01/03/22 @ unknown) 16:55 by Janis Neely [facility]) (unknown) (no (unknown) (unknown) Medical decision (units (unknown) date) making narrative: unknown) (unknown) (no (unknown) (unknown) Microcytosis (units (u nknown) date) unknown) (unknown) (no (unknown) (unknown) Microcytosis (units (u nknown) date) unknown) (unknown) (no (unknown) (unknown) Microcytosis 1+ H (unit s (unknown) date) unknown) (unknown) (no (unknown) (unknown) Mode of arrival: (units (unknown) date) Wheelchair unknown) (unknown) (no (unknown) (unknown) [place] # (Auto) (units ( unknown) date) unknown) (unknown) (no (unknown) (unknown) [place] # (Auto) (units ( unknown) date) unknown) (unknown) (no (unknown) (unknown) [place] # (Auto) Not (unit s (unknown) date) Reportable unknown) (unknown) (no (unknown) (unknown) [place] % (Auto) (units ( unknown) date) unknown) (unknown) (no (unknown) (unknown) [place] % (Auto) (units ( unknown) date) unknown) (unknown) (no (unknown) (unknown) [place] % (Auto) Not (unit s (unknown) date) Reportable unknown) (unknown) (no (unknown) (unknown) Monocytes % (units (un known) date) (Manual) (2-11) unknown) % (unknown) (no (unknown) (unknown) Monocytes % (units (un known) date) (Manual) (2-11) % unknown) (unknown) (no (unknown) (unknown) Monocytes % (units (un known) date) (Manual) 7.0 unknown) (2-11) % (unknown) (no (unknown) (unknown) Mouth/Throat: moist (unit s (unknown) date) mucus membranes unknown) (unknown) (no (unknown) (unknown) N gonorrhoeae DNA (units (unknown) date) (PCR) unknown) (unknown) (no (unknown) (unknown) N gonorrhoeae DNA (units (unknown) date) (PCR) Not detected unknown) (unknown) (no (unknown) (unknown) Narrative (units (unkn own) date) unknown) (unknown) (no (unknown) (unknown) Narrative: (units (unk nown) date) unknown) (unknown) (no (unknown) (unknown) Neck: supple, (units ( unknown) date) atraumatic, without unknown) lymphadenopathy. (unknown) (no (unknown) (unknown) Neuro: denies (units ( unknown) date) numbness, tingling unknown) (unknown) (no (unknown) (unknown) Neuro: normal (units ( unknown) date) speech and unknown) cognition, A+O x3, normal tone (unknown) (no (unknown) (unknown) Neut % (Auto) (units ( unknown) date) unknown) (unknown) (no (unknown) (unknown) Neut % (Auto) (units ( unknown) date) unknown) (unknown) (no (unknown) (unknown) Neut % (Auto) Not (unit s (unknown) date) Reportable unknown) (unknown) (no (unknown) (unknown) Neutrophils # (units ( unknown) date) (Manual) unknown) ([id number]) /uL (unknown) (no (unknown) (unknown) Neutrophils # (units ( unknown) date) (Manual) unknown) ([id number]) /uL (unknown) (no (unknown) (unknown) Neutrophils # (units ( unknown) date) (Manual) 3834 unknown) ([id number]) /uL (unknown) (no (unknown) (unknown) New (units (unkno wn) date) unknown) (unknown) (no (unknown) (unknown) No Action (units (unkn own) date) unknown) (unknown) (no (unknown) (unknown) Nose: nares patent, (unit s (unknown) date) no rhinorrhea unknown) (unknown) (no (unknown) (unknown) Ondansetron HCl (units (unknown) date) (Ondansetron 4 Mg/2 unknown) Ml Inj) 4 mg IV NOW ONE (unknown) (no (unknown) (unknown) Ordered: (units (unkno wn) date) unknown) (unknown) (no (unknown) (unknown) Orders (units (unkno wn) date) unknown) (unknown) (no (unknown) (unknown) Patient (units (unkno wn) date) Disposition: Home unknown) (unknown) (no (unknown) (unknown) Patient History (units (unknown) date) unknown) (unknown) (no (unknown) (unknown) Patient: (units (unkno wn) date) Isabelle Frey unknown) MR#: [id number] (unknown) (no (unknown) (unknown) Platelet Estimate (units (unknown) date) unknown) (unknown) (no (unknown) (unknown) Platelet Estimate (units (unknown) date) unknown) (unknown) (no (unknown) (unknown) Platelet Estimate (units (unknown) date) Increased on smear unknown) (unknown) (no (unknown) (unknown) Potassium (units (unkn own) date) (3.4-5.1) mmol/L unknown) (unknown) (no (unknown) (unknown) Potassium 3.9 (units (unknown) date) (3.4-5.1) mmol/L unknown) (unknown) (no (unknown) (unknown) Potassium (units (unkn own) date) (3.4-5.1) mmol/L unknown) (unknown) (no (unknown) (unknown) Prescriptions: (units (unknown) date) unknown) (unknown) (no (unknown) (unknown) Procalcitonin (units ( unknown) date) (<0.5) ng/mL unknown) (unknown) (no (unknown) (unknown) Procalcitonin (units ( unknown) date) (<0.5) ng/mL unknown) (unknown) (no (unknown) (unknown) Procalcitonin (units ( unknown) date) 0.14 (<0.5) ng/mL unknown) (unknown) (no (unknown) (unknown) Procalcitonin Stat (units (unknown) date) unknown) (unknown) (no (unknown) (unknown) Psych: mental (units ( unknown) date) status is grossly unknown) normal, congruent mood, normal affect, pleasant (unknown) (no (unknown) (unknown) Pulse Oximetry 99 (units (unknown) date) 01/03/22 09:55 unknown) (unknown) (no (unknown) (unknown) Pulse Oximetry 100 (units (unknown) date) 99 unknown) (unknown) (no (unknown) (unknown) Pulse Oximetry 98 (units (unknown) date) 100 unknown) (unknown) (no (unknown) (unknown) Pulse Oximetry 99 (units (unknown) date) 92 100 unknown) (unknown) (no (unknown) (unknown) Pulse Oximetry 99 (units (unknown) date) 99 99 unknown) (unknown) (no (unknown) (unknown) Pulse Rate 109 H (units (unknown) date) 01/03/22 09:55 unknown) (unknown) (no (unknown) (unknown) Pulse Rate 109 H 96 (unit s (unknown) date) H 95 H unknown) (unknown) (no (unknown) (unknown) Pulse Rate 80 80 (units (unknown) date) unknown) (unknown) (no (unknown) (unknown) Pulse Rate 85 85 (units (unknown) date) unknown) (unknown) (no (unknown) (unknown) Pulse Rate 86 98 H (units (unknown) date) 92 H unknown) (unknown) (no (unknown) (unknown) Qualifiers: (units (un known) date) unknown) (unknown) (no (unknown) (unknown) RBC Morphology (units (unknown) date) unknown) (unknown) (no (unknown) (unknown) RBC Morphology (units (unknown) date) unknown) (unknown) (no (unknown) (unknown) RBC Morphology (units (unknown) date) See below unknown) (unknown) (no (unknown) (unknown) RDW (11.6-14.8) (unit s (unknown) date) % unknown) (unknown) (no (unknown) (unknown) RDW (11.6-14.8) (units (unknown) date) % unknown) (unknown) (no (unknown) (unknown) RDW 18.9 H (units (u nknown) date) (11.6-14.8) % unknown) (unknown) (no (unknown) (unknown) Respiratory Rate (units (unknown) date) 17 unknown) (unknown) (no (unknown) (unknown) Respiratory Rate (units (unknown) date) 20 01/03/22 09:55 unknown) (unknown) (no (unknown) (unknown) Respiratory Rate 19 (unit s (unknown) date) 20 unknown) (unknown) (no (unknown) (unknown) Respiratory Rate 20 (unit s (unknown) date) 22 16 unknown) (unknown) (no (unknown) (unknown) Respiratory Rate 21 (unit s (unknown) date) 22 unknown) (unknown) (no (unknown) (unknown) Respiratory: denies (unit s (unknown) date) dyspnea, cough, unknown) orthopnea (unknown) (no (unknown) (unknown) Respiratory: normal (unit s (unknown) date) effort, able to unknown) speak in complete sentences, no audible (unknown) (no (unknown) (unknown) Result diagrams: (units (unknown) date) unknown) (unknown) (no (unknown) (unknown) Review of Systems (units (unknown) date) unknown) (unknown) (no (unknown) (unknown) SARS-CoV-2 (PCR) (units (unknown) date) (Negative) unknown) (unknown) (no (unknown) (unknown) SARS-CoV-2 (PCR) (units (unknown) date) (Negative) unknown) (unknown) (no (unknown) (unknown) SARS-CoV-2 (PCR) (units (unknown) date) Negative unknown) (Negative) (unknown) (no (unknown) (unknown) Seg Neutrophils % (units (unknown) date) (38-70) % unknown) (unknown) (no (unknown) (unknown) Seg Neutrophils % (units (unknown) date) (38-70) % unknown) (unknown) (no (unknown) (unknown) Seg Neutrophils % (units (unknown) date) 54.0 (38-70) % unknown) (unknown) (no (unknown) (unknown) Sepsis Guideline (units (unknown) date) Criteria unknown) (unknown) (no (unknown) (unknown) Sepsis Infection (units (unknown) date) Criteria Present: unknown) None (unknown) (no (unknown) (unknown) Sepsis Screen: No (units (unknown) date) Definite Risk unknown) (unknown) (no (unknown) (unknown) 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 unknown) She states that yesterday at work her (unknown) (no (unknown) (unknown) Signed By: (units (unk nown) date) unknown) (unknown) (no (unknown) (unknown) Skin: brisk (units (un known) date) capillary refill, no unknown) rash, no erythema (unknown) (no (unknown) (unknown) Skin: denies rash, (units (unknown) date) itching, skin unknown) lesions or other (unknown) (no (unknown) (unknown) Smoking Status: (units (unknown) date) Never smoker unknown) (unknown) (no (unknown) (unknown) Smoking Status: (units (unknown) date) Never smoker unknown) (unknown) (no (unknown) (unknown) Social History (units (unknown) date) (Reviewed 01/03/22 @ unknown) 16:55 by Janis Neely [facility]) (unknown) (no (unknown) (unknown) Sodium (units (unkno wn) date) (137-145) mmol/L unknown) (unknown) (no (unknown) (unknown) Sodium 138 (units ( unknown) date) (137-145) mmol/L unknown) (unknown) (no (unknown) (unknown) Sodium (137-145) (units (unknown) date) mmol/L unknown) (unknown) (no (unknown) (unknown) Sodium Chloride (units (unknown) date) (Normal Saline 0.9%) unknown) 1,000 mls @ 1,000 mls/hr IV BOLUS ONE (unknown) (no (unknown) (unknown) Source: patient (units (unknown) date) unknown) (unknown) (no (unknown) (unknown) Stand Alone Forms: (units (unknown) date) Work Release Note unknown) (unknown) (no (unknown) (unknown) Substance Use Type: (unit s (unknown) date) marijuana unknown) (unknown) (no (unknown) (unknown) [facility] clinic to (unit s (unknown) date) establish care with unknown) primary care there and ask for a (unknown) (no (unknown) (unknown) Temperature (units (un known) date) unknown) (unknown) (no (unknown) (unknown) Temperature (units (un known) date) unknown) (unknown) (no (unknown) (unknown) Temperature 98.0 F (unit s (unknown) date) 01/03/22 09:55 unknown) (unknown) (no (unknown) (unknown) Temperature 98.3 F (unit s (unknown) date) unknown) (unknown) (no (unknown) (unknown) Temperature 98.0 F (units (unknown) date) unknown) (unknown) (no (unknown) (unknown) This is a (units (unkn own) date) 26-year-old female unknown) with a history of psoriatic arthritis and has (unknown) (no (unknown) (unknown) This is a (units (unkno wn) date) 26-year-old female unknown) with history of psoriatic arthritis who presents to (unknown) (no (unknown) (unknown) Total Bilirubin (units (unknown) date) (0.2-1.3) mg/dL unknown) (unknown) (no (unknown) (unknown) Total Bilirubin (units (unknown) date) 0.3 (0.2-1.3) unknown) mg/dL (unknown) (no (unknown) (unknown) Total Bilirubin (units (unknown) date) (0.2-1.3) mg/dL unknown) (unknown) (no (unknown) (unknown) Total Counted (units ( unknown) date) unknown) (unknown) (no (unknown) (unknown) Total Counted (units ( unknown) date) unknown) (unknown) (no (unknown) (unknown) Total Counted 100 (unit s (unknown) date) unknown) (unknown) (no (unknown) (unknown) Total Protein (units ( unknown) date) (6.3-8.2) g/dL unknown) (unknown) (no (unknown) (unknown) Total Protein (units ( unknown) date) 9.8 H* (6.3-8.2) unknown) g/dL (unknown) (no (unknown) (unknown) Total Protein (units ( unknown) date) (6.3-8.2) g/dL unknown) (unknown) (no (unknown) (unknown) Treatment Initiated (unit s (unknown) date) unknown) (unknown) (no (unknown) (unknown) Ur Chlamydia DNA (units (unknown) date) (PCR) unknown) (unknown) (no (unknown) (unknown) Ur Chlamydia DNA (units (unknown) date) (PCR) Not detected unknown) (unknown) (no (unknown) (unknown) Ur Culture (units (unk nown) date) Indicated? unknown) (unknown) (no (unknown) (unknown) Ur Culture (units (unk nown) date) Indicated? unknown) (unknown) (no (unknown) (unknown) Ur Culture (units (unk nown) date) Indicated? unknown) Specimen cultured (unknown) (no (unknown) (unknown) Ur Leukocyte (units (u nknown) date) Esterase unknown) (NEGATIVE) (unknown) (no (unknown) (unknown) Ur Leukocyte (units (u nknown) date) Esterase 1+ H unknown) (NEGATIVE) (unknown) (no (unknown) (unknown) Ur Leukocyte (units (u nknown) date) Esterase unknown) (NEGATIVE) (unknown) (no (unknown) (unknown) Ur Specific [place] (unit s (unknown) date) (1.000-1.035) unknown) (unknown) (no (unknown) (unknown) Ur Specific [place] (unit s (unknown) date) 1.010 unknown) (1.000-1.035) (unknown) (no (unknown) (unknown) Ur Specific [place] (unit s (unknown) date) (1.000-1.035) unknown) (unknown) (no (unknown) (unknown) Ur Squamous Epith (units (unknown) date) Cells (0-5/HPF) unknown) (unknown) (no (unknown) (unknown) Ur Squamous Epith (units (unknown) date) Cells 1-5 /hpf unknown) (0-5/HPF) (unknown) (no (unknown) (unknown) Ur Squamous Epith (units (unknown) date) Cells (0-5/HPF) unknown) (unknown) (no (unknown) (unknown) Urinalysis and (units (unknown) date) Microscopic Stat unknown) (unknown) (no (unknown) (unknown) Urine Appearance (units (unknown) date) unknown) (unknown) (no (unknown) (unknown) Urine Appearance (units (unknown) date) unknown) (unknown) (no (unknown) (unknown) Urine Appearance (units (unknown) date) Clear unknown) (unknown) (no (unknown) (unknown) Urine Bacteria (units (unknown) date) (None) unknown) (unknown) (no (unknown) (unknown) Urine Bacteria (units (unknown) date) None seen (None) unknown) (unknown) (no (unknown) (unknown) Urine Bacteria (units (unknown) date) (None) unknown) (unknown) (no (unknown) (unknown) Urine Bilirubin (units (unknown) date) (NEGATIVE) unknown) (unknown) (no (unknown) (unknown) Urine Bilirubin (units (unknown) date) Negative (NEGATIVE) unknown) (unknown) (no (unknown) (unknown) Urine Bilirubin (units (unknown) date) (NEGATIVE) unknown) (unknown) (no (unknown) (unknown) Urine Color (units (un known) date) unknown) (unknown) (no (unknown) (unknown) Urine Color (units (un known) date) unknown) (unknown) (no (unknown) (unknown) Urine Color (units (un known) date) Yellow unknown) (unknown) (no (unknown) (unknown) Urine Culture Stat (units (unknown) date) unknown) (unknown) (no (unknown) (unknown) Urine Glucose (UA) (units (unknown) date) (Negative) g/dL unknown) (unknown) (no (unknown) (unknown) Urine Glucose (UA) (units (unknown) date) Negative unknown) (Negative) g/dL (unknown) (no (unknown) (unknown) Urine Glucose (UA) (units (unknown) date) (Negative) g/dL unknown) (unknown) (no (unknown) (unknown) Urine Ketones (units ( unknown) date) (NEGATIVE) unknown) (unknown) (no (unknown) (unknown) Urine Ketones (units ( unknown) date) Negative (NEGATIVE) unknown) (unknown) (no (unknown) (unknown) Urine Ketones (units ( unknown) date) (NEGATIVE) unknown) (unknown) (no (unknown) (unknown) Urine Nitrate (units ( unknown) date) (Negative) unknown) (unknown) (no (unknown) (unknown) Urine Nitrate (units ( unknown) date) Negative (Negative) unknown) (unknown) (no (unknown) (unknown) Urine Nitrate (units ( unknown) date) (Negative) unknown) (unknown) (no (unknown) (unknown) Urine Occult Blood (units (unknown) date) (Negative) unknown) (unknown) (no (unknown) (unknown) Urine Occult Blood (units (unknown) date) 3+ H (Negative) unknown) (unknown) (no (unknown) (unknown) Urine Occult Blood (units (unknown) date) (Negative) unknown) (unknown) (no (unknown) (unknown) Urine Protein (units ( unknown) date) (Negative) unknown) (unknown) (no (unknown) (unknown) Urine Protein (units ( unknown) date) Negative (Negative) unknown) (unknown) (no (unknown) (unknown) Urine Protein (units ( unknown) date) (Negative) unknown) (unknown) (no (unknown) (unknown) Urine RBC (units (unkn own) date) (0-5/HPF) unknown) (unknown) (no (unknown) (unknown) Urine RBC (units (unkn own) date) 10-30/hpf H unknown) (0-5/HPF) (unknown) (no (unknown) (unknown) Urine RBC (units (unkn own) date) (0-5/HPF) unknown) (unknown) (no (unknown) (unknown) Urine Urobilinogen (units (unknown) date) (0.2) E.U./dL unknown) (unknown) (no (unknown) (unknown) Urine Urobilinogen (units (unknown) date) 0.2 (0.2) unknown) E.U./dL (unknown) (no (unknown) (unknown) Urine Urobilinogen (units (unknown) date) (0.2) E.U./dL unknown) (unknown) (no (unknown) (unknown) Urine WBC (units (unkn own) date) (0-5/HPF) unknown) (unknown) (no (unknown) (unknown) Urine WBC (units (unkn own) date) 5-10/hpf H unknown) (0-5/HPF) (unknown) (no (unknown) (unknown) Urine WBC (units (unkn own) date) (0-5/HPF) unknown) (unknown) (no (unknown) (unknown) Urine pH (units (unkno wn) date) (4.5-8.0) unknown) (unknown) (no (unknown) (unknown) Urine pH 6.5 (units (unknown) date) (4.5-8.0) unknown) (unknown) (no (unknown) (unknown) Urine pH (units (unkno wn) date) (4.5-8.0) unknown) (unknown) (no (unknown) (unknown) Vital Signs (units (un known) date) unknown) (unknown) (no (unknown) (unknown) Vital signs: (units (u nknown) date) unknown) (unknown) (no (unknown) (unknown) Wet Prep Tric BV (units (unknown) date) Emilia Stat unknown) (unknown) (no (unknown) (unknown) [Embedded Image Not (unit s (unknown) date) Available] unknown) (unknown) (no (unknown) (unknown) alcohol intake (units (unknown) date) frequency: 0-2 unknown) drinks per day (unknown) (no (unknown) (unknown) and cooperative (units (unknown) date) unknown) (unknown) (no (unknown) (unknown) and ibuprofen to (units (unknown) date) your pharmacy. unknown) Thank you for trusting us with your care, (unknown) (no (unknown) (unknown) any abnormal (units (u nknown) date) finding, and your unknown) MRI from 2 days ago shows loss of normal lumbar (unknown) (no (unknown) (unknown) appointment. Let (units (unknown) date) them know you were unknown) seen in the Emergency Department and that we (unknown) (no (unknown) (unknown) arthritis medicine. (unit s (unknown) date) I have called and unknown) muscle relaxers, Voltaren topical gel, (unknown) (no (unknown) (unknown) arthritis. No (units ( unknown) date) infectious sources unknown) were found, your kidney function is great with (unknown) (no (unknown) (unknown) asked that you be (units (unknown) date) seen for follow-up. unknown) We will electronically transmit a record (unknown) (no (unknown) (unknown) chronic disease and (unit s (unknown) date) chronic unknown) immunosuppression (unknown) (no (unknown) (unknown) co-worker thought (units (unknown) date) that she was pale unknown) and she felt lightheaded so she drank some (unknown) (no (unknown) (unknown) complains of (units (u nknown) date) menstrual cramping unknown) although she has the IUD that was implanted in (unknown) (no (unknown) (unknown) concerning (units (unk nown) date) symptoms, such as unknown) [fever greater than 101F, chills, worsening pain, (unknown) (no (unknown) (unknown) count of 800, no (units (unknown) date) leukocytosis, unknown) hemoglobin of 8.1 and hematocrit of 25.2 without (unknown) (no (unknown) (unknown) curvature (units (unkn own) date) suggesting muscle unknown) spasm, it did not have any significant canal (unknown) (no (unknown) (unknown) denies any (units (unk nown) date) incontinence. unknown) (unknown) (no (unknown) (unknown) e last 2 months (units (unknown) date) which has not been unknown) getting much better after 2 courses of (unknown) (no (unknown) (unknown) emergency (units (unkn own) date) department and at unknown) the walk-in clinic for this. She states she had an (unknown) (no (unknown) (unknown) emergency (units (unkno wn) date) department. Nausea unknown) vomiting, shortness of breath, fever or chills, no (unknown) (no (unknown) (unknown) establish care with [facility] ([facility]. (unknown) (no (unknown) (unknown) groomed (units (unkno wn) date) unknown) (unknown) (no (unknown) (unknown) hand (units (unkno wn) date) unknown) (unknown) (no (unknown) (unknown) have improved her (units (unknown) date) pain but now her unknown) pain is worse than it has ever been. She (unknown) (no (unknown) (unknown) her psoriatic (units ( unknown) date) arthritis but she unknown) moved here from [place] a few months ago and has (unknown) (no (unknown) (unknown) ibuprofen, uses (units (unknown) date) lidocaine patches, unknown) and states that tramadol made her feel weird (unknown) (no (unknown) (unknown) left side Qualified (unit s (unknown) date) Code(s): M54.42 - unknown) Lumbago with sciatica, left side (unknown) (no (unknown) (unknown) month and has been (units (unknown) date) off of this for a unknown) few months. She states that she is from (unknown) (no (unknown) (unknown) neural impingement. (units (unknown) date) This is most likely unknown) a flare of her psoriatic arthritis, she (unknown) (no (unknown) (unknown) not had this (units (u nknown) date) medication for last unknown) couple of months. She has completed 2 or 3 (unknown) (no (unknown) (unknown) of today's note if (units (unknown) date) your PCP is in our unknown) system (unknown) (no (unknown) (unknown) ongoing low back (units (unknown) date) pain with sciatica unknown) down her left side, she has been seen in the (unknown) (no (unknown) (unknown) persistent vomiting (unit s (unknown) date) or other bothersome unknown) symptoms] (unknown) (no (unknown) (unknown) please follow-up (units (unknown) date) with your primary unknown) care provider as directed. If you develop (unknown) (no (unknown) (unknown) presented to the (units (unknown) date) emergency department unknown) and walk-in clinic for lumbar pain over th (unknown) (no (unknown) (unknown) priors to compare (units (unknown) date) to, no signs of unknown) bleeding. This is most likely anemia of (unknown) (no (unknown) (unknown) referral to (units (un known) date) Rheumatology for her unknown) medication. Patient has an elevated platelet (unknown) (no (unknown) (unknown) relaxers which have (unit s (unknown) date) also been helpful, unknown) does not use naproxen but takes (unknown) (no (unknown) (unknown) sepsis state and (units (unknown) date) within one hour for unknown) both sepsis and septic shock. (unknown) (no (unknown) (unknown) set up primary care (unit s (unknown) date) yet at this were no unknown) mesh clinic where she will be going. (unknown) (no (unknown) (unknown) she did not like it. (unit s (unknown) date) Her MRI from 2 days unknown) ago of her lumbar spine shows lordosis (unknown) (no (unknown) (unknown) significant, (units (u nknown) date) unknown) (unknown) (no (unknown) (unknown) soon. (units (unkno wn) date) unknown) (unknown) (no (unknown) (unknown) stenosis or nerve (units (unknown) date) impingement. No unknown) mesh clinic for an appointment with a primary (unknown) (no (unknown) (unknown) steroid bursts for (units (unknown) date) her back pain which unknown) have been helpful, has been using muscle (unknown) (no (unknown) (unknown) steroids, muscle (units (unknown) date) relaxers, unknown) anti-inflammatories. Patient states that she used to (unknown) (no (unknown) (unknown) take since he a an (units (unknown) date) injectable medicine unknown) for her psoriatic arthritis once per (unknown) (no (unknown) (unknown) tenderness with (units (unknown) date) exam, without unknown) guarding or rebound. No CVA tenderness, (unknown) (no (unknown) (unknown) thick white (units (un known) date) discharge, or unknown) lymphadenopathy. (unknown) (no (unknown) (unknown) vomiting, please (units (unknown) date) return to the unknown) emergency department. I hope you feel better (unknown) (no (unknown) (unknown) water which she (units (unknown) date) states made her feel unknown) better. She states that she has had (unknown) (no (unknown) (unknown) weakness (units (unkno wn) date) unknown) (unknown) (no (unknown) (unknown) weakness, (units (unkn own) date) incontinence, or any unknown) new abnormal changes like a high fever and (unknown) (no (unknown) (unknown) weakness. She (units (unknown) date) states that she has unknown) had 2 courses of steroids this month which (unknown) (no (unknown) (unknown) were no mesh (units (u nknown) date) Clinic, states she unknown) called today but they told her to go to the (unknown) (no (unknown) (unknown) wheezing, stridor, (units (unknown) date) or rales. No unknown) retractions or tachypnea. (unknown) (no (unknown) (unknown) with unknown (units (un known) date) etiology. Your unknown) workup today has ribs a low blood count, likely due Result panel 14 (unknown) (no (unknown) (unknown) (no value) (units (unk nown) date) unknown) (unknown) (no (unknown) (unknown) Radiologist's (units ( unknown) date) Impression: unknown) (unknown) (no (unknown) (unknown) *Please continue to (unit s (unknown) date) take your regular unknown) medications as directed. (unknown) (no (unknown) (unknown) Date of Service: (units (unknown) date) 01/03/22 unknown) (unknown) (no (unknown) (unknown) (no value) (units (unk nown) date) unknown) (unknown) (no (unknown) (unknown) <Electronically (units (unknown) date) signed by Janis Vasquez unknown) [facility] Crew> (unknown) (no (unknown) (unknown) 01/03/22 10:34 (units (unknown) date) unknown) (unknown) (no (unknown) (unknown) 01/03/22 1705 (units ( unknown) date) unknown) (unknown) (no (unknown) (unknown) 1 patch topical (units (unknown) date) DAILY PRN (Reason: unknown) pain) Qty: 15 0RF (unknown) (no (unknown) (unknown) 10 mg PO BEDTIME (units (unknown) date) 0RF unknown) (unknown) (no (unknown) (unknown) 2 g topical QID PRN (unit s (unknown) date) (Reason: pain) Qty: unknown) 100 0RF (unknown) (no (unknown) (unknown) 50 mg PO BID PRN (units (unknown) date) (Reason: pain) Qty: unknown) 14 0RF (unknown) (no (unknown) (unknown) 500 mg PO BID 5 (units (unknown) date) Days Qty: 10 0RF unknown) (unknown) (no (unknown) (unknown) 600 mg PO QPM PRN (units (unknown) date) (Reason: sciatica) unknown) Qty: 14 0RF (unknown) (no (unknown) (unknown) 7.5 mg PO BEDTIME (units (unknown) date) PRN (Reason: muscle unknown) spasm) Qty: 60 0RF (unknown) (no (unknown) (unknown) 800 mg PO Q8H PRN (units (unknown) date) (Reason: pain) Qty: unknown) 21 0RF (unknown) (no (unknown) (unknown) 800 mg PO Q8H PRN (units (unknown) date) (Reason: pain) Qty: unknown) 30 0RF (unknown) (no (unknown) (unknown) 800 mg PO Q8H PRN (units (unknown) date) (Reason: pain) Qty: unknown) 60 0RF (unknown) (no (unknown) (unknown) Admin: 01/03/22 (units (unknown) date) 12:50 Dose: 1,000 unknown) mls/hr (unknown) (no (unknown) (unknown) Documented by: (units (unknown) date) KSWANSO unknown) (unknown) (no (unknown) (unknown) Documented by: (units (unknown) date) NRHOADS unknown) (unknown) (no (unknown) (unknown) ED Orders (units (unkn own) date) unknown) (unknown) (no (unknown) (unknown) Emergency Report (units (unknown) date) unknown) (unknown) (no (unknown) (unknown) [facility] (units (unknown) date) [address] unknown) [place] [address] (unknown) (no (unknown) (unknown) Lab Results (units (un known) date) unknown) (unknown) (no (unknown) (unknown) Last Admin: (units (un known) date) 01/03/22 12:50 unknown) Dose: 4 mg (unknown) (no (unknown) (unknown) Last Admin: (units (un known) date) 01/03/22 14:33 unknown) Dose: 10 mg (unknown) (no (unknown) (unknown) Last Admin: (units (un known) date) 01/03/22 14:33 unknown) Dose: 15 mg (unknown) (no (unknown) (unknown) Last Infusion: (units (unknown) date) 01/03/22 13:53 unknown) Dose: 0 mls/hr (unknown) (no (unknown) (unknown) PO PER PKG DIR (units (unknown) date) unknown) (unknown) (no (unknown) (unknown) Point of Care (units ( unknown) date) Testing unknown) (unknown) (no (unknown) (unknown) Rx Instructions: (units (unknown) date) unknown) (unknown) (no (unknown) (unknown) See Rx Instructions (unit s (unknown) date) PO PER PKG DIR Qty: unknown) 21 0RF (unknown) (no (unknown) (unknown) Stop: 01/03/22 (units (unknown) date) 12:37 unknown) (unknown) (no (unknown) (unknown) Stop: 01/03/22 (units (unknown) date) 13:35 unknown) (unknown) (no (unknown) (unknown) Stop: 01/03/22 (units (unknown) date) 14:21 unknown) (unknown) (no (unknown) (unknown) Stop: 01/03/22 (units (unknown) date) 14:24 unknown) (unknown) (no (unknown) (unknown) Vital Signs - 8 hr (units (unknown) date) unknown) (unknown) (no (unknown) (unknown) [ ] New medication (units (unknown) date) written as a paper unknown) prescription (unknown) (no (unknown) (unknown) [ ] No new (units (unk nown) date) medications given unknown) (unknown) (no (unknown) (unknown) [x ] New medication (unit s (unknown) date) prescriptions sent unknown) to your pharmacy: [ [facility]] (unknown) (no (unknown) (unknown) apply to single (units (unknown) date) elbow, wrist or unknown) hand; for hand includes palm/fingers/back of (unknown) (no (unknown) (unknown) leave on most (units ( unknown) date) painful area for up unknown) to 12 hrs (unknown) (no (unknown) (unknown) (no value) (units (unk nown) date) unknown) (unknown) (no (unknown) (unknown) 01/03/22 01/03/22 (units (unknown) date) 01/03/22 Range/Units unknown) (unknown) (no (unknown) (unknown) 01/03/22 (units (unkno wn) date) Range/Units unknown) (unknown) (no (unknown) (unknown) 09:56 10:34 10:34 (units (unknown) date) unknown) (unknown) (no (unknown) (unknown) 10:39 10:39 12:40 (units (unknown) date) unknown) (unknown) (no (unknown) (unknown) 12:40 (units (unkno wn) date) unknown) (unknown) (no (unknown) (unknown) cephalexin 500 mg (units (unknown) date) capsule unknown) (unknown) (no (unknown) (unknown) cyclobenzaprine 10 (units (unknown) date) mg tablet unknown) (unknown) (no (unknown) (unknown) cyclobenzaprine 7.5 (unit s (unknown) date) mg tablet unknown) (unknown) (no (unknown) (unknown) diclofenac sodium (units (unknown) date) [Voltaren Arthritis unknown) Pain] 1 % gel (unknown) (no (unknown) (unknown) gabapentin 600 mg (units (unknown) date) tablet extended unknown) release 24 hr (unknown) (no (unknown) (unknown) ibuprofen 800 mg (units (unknown) date) tablet unknown) (unknown) (no (unknown) (unknown) lidocaine (units (unkn own) date) [Lidoderm] 5 % unknown) adhesive patch,medicated (unknown) (no (unknown) (unknown) methylprednisolone (units (unknown) date) [Medrol (Luis)] 4 mg unknown) tablets,dose pack (unknown) (no (unknown) (unknown) tramadol 50 mg (units (unknown) date) tablet unknown) (unknown) (no (unknown) (unknown) 01/03/22 (units (unkno wn) date) unknown) (unknown) (no (unknown) (unknown) Chronicity: acute (units (unknown) date) Back pain unknown) laterality: left Sciatica laterality: sciatica of (unknown) (no (unknown) (unknown) Psoriatic arthritis (unit s (unknown) date) unknown) (unknown) (no (unknown) (unknown) a creatinine 0.47 (units (unknown) date) you did not have any unknown) significant signs of dehydration on your (unknown) (no (unknown) (unknown) blood cells, white (units (unknown) date) blood cells, pending unknown) culture. Patient was given a (unknown) (no (unknown) (unknown) care provider as (units (unknown) date) soon as possible. unknown) Please request follow-up from the emergency (unknown) (no (unknown) (unknown) chills, fever, (units (unknown) date) abdominal pain or unknown) vomiting. 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 She is encouraged to go back to the (unknown) (no (unknown) (unknown) lab work, your (units (unknown) date) urine does not unknown) infection, your vaginal secretions did not have (unknown) (no (unknown) (unknown) suggestive of (units ( unknown) date) muscle spasm, no unknown) significant canal or foraminal stenosis, no (unknown) (no (unknown) (unknown) the emergency (units ( unknown) date) department for unknown) ongoing low back pain with sciatica on the left, (unknown) (no (unknown) (unknown) to your steroids (units (unknown) date) you been on this unknown) month and your history of psoriatic (unknown) (no (unknown) (unknown) *If you do not have (unit s (unknown) date) a primary care unknown) provider please contact [phone] to (unknown) (no (unknown) (unknown) *Please follow up (units (unknown) date) with your primary unknown) care provider in 2-3 days, call for an (unknown) (no (unknown) (unknown) *Return to (units (unk nown) date) Emergency Department unknown) if you should have any new, worsening or (unknown) (no (unknown) (unknown) *What to do: (units (u nknown) date) unknown) (unknown) (no (unknown) (unknown) *You have been (units (unknown) date) diagnosed with back unknown) pain with sciatica, groin and pelvis pain (unknown) (no (unknown) (unknown) 01/03/22 09:56 (units (unknown) date) unknown) (unknown) (no (unknown) (unknown) 01/03/22 10:34 (units (unknown) date) unknown) (unknown) (no (unknown) (unknown) 01/03/22 10:39 (units (unknown) date) unknown) (unknown) (no (unknown) (unknown) 01/03/22 12:40 (units (unknown) date) unknown) (unknown) (no (unknown) (unknown) 01/03/22 12:55 (units (unknown) date) unknown) (unknown) (no (unknown) (unknown) 01/03/22 13:25 (units (unknown) date) unknown) (unknown) (no (unknown) (unknown) 09:55 01/03/22 (units (unknown) date) unknown) (unknown) (no (unknown) (unknown) 1. Loss of normal (units (unknown) date) lumbar lordosis, unknown) suggestive of muscle spasm. (unknown) (no (unknown) (unknown) 11:36 01/03/22 (units (unknown) date) unknown) (unknown) (no (unknown) (unknown) 11:37 (units (unkno wn) date) unknown) (unknown) (no (unknown) (unknown) 12:00 01/03/22 (units (unknown) date) unknown) (unknown) (no (unknown) (unknown) 12:42 01/03/22 (units (unknown) date) unknown) (unknown) (no (unknown) (unknown) 12:44 (units (unkno wn) date) unknown) (unknown) (no (unknown) (unknown) 13:00 01/03/22 (units (unknown) date) unknown) (unknown) (no (unknown) (unknown) 13:26 01/03/22 (units (unknown) date) unknown) (unknown) (no (unknown) (unknown) 13:30 (units (unkno wn) date) unknown) (unknown) (no (unknown) (unknown) 14:00 01/03/22 (units (unknown) date) unknown) (unknown) (no (unknown) (unknown) 14:30 (units (unkno wn) date) unknown) (unknown) (no (unknown) (unknown) 2. No significant (units (unknown) date) canal, or foraminal unknown) stenosis.? No neural impingement. (unknown) (no (unknown) (unknown) 2019 and has not had (unit s (unknown) date) a menses but has unknown) started spotting recently. She denies any (unknown) (no (unknown) (unknown) [id number] (units (unkno wn) date) unknown) (unknown) (no (unknown) (unknown) ? (units (unkno wn) date) unknown) (unknown) (no (unknown) (unknown) ALT (<35) IU/L (unit s (unknown) date) unknown) (unknown) (no (unknown) (unknown) ALT 19 (<35) (units (unknown) date) IU/L unknown) (unknown) (no (unknown) (unknown) ALT (<35) IU/L (units (unknown) date) unknown) (unknown) (no (unknown) (unknown) AST (14-36) (units (unknown) date) IU/L unknown) (unknown) (no (unknown) (unknown) AST 21 (14-36) (units (unknown) date) IU/L unknown) (unknown) (no (unknown) (unknown) AST (14-36) IU/L (unit s (unknown) date) unknown) (unknown) (no (unknown) (unknown) Activity (units (unkno wn) date) Restrictions/Additio unknown) nal Instructions: (unknown) (no (unknown) (unknown) Age/Sex: 26 / F (units (unknown) date) unknown) (unknown) (no (unknown) (unknown) [place], 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, she has not (unknown) (no (unknown) (unknown) Albumin (units (unkno wn) date) (3.5-5.0) g/dL unknown) (unknown) (no (unknown) (unknown) Albumin 3.4 L (units (unknown) date) (3.5-5.0) g/dL unknown) (unknown) (no (unknown) (unknown) Albumin (3.5-5.0) (unit s (unknown) date) g/dL unknown) (unknown) (no (unknown) (unknown) Albumin/Globulin (units (unknown) date) Ratio (1.0-2.8) unknown) (unknown) (no (unknown) (unknown) Albumin/Globulin (units (unknown) date) Ratio 0.5 L unknown) (1.0-2.8) (unknown) (no (unknown) (unknown) Albumin/Globulin (units (unknown) date) Ratio (1.0-2.8) unknown) (unknown) (no (unknown) (unknown) Alignment and (units ( unknown) date) Curvature:? 5 lumbar unknown) type vertebral bodies are present by plain (unknown) (no (unknown) (unknown) Alkaline (units (unkno wn) date) Phosphatase unknown) (38-126) U/L (unknown) (no (unknown) (unknown) Alkaline (units (unkno wn) date) Phosphatase 109 unknown) (38-126) U/L (unknown) (no (unknown) (unknown) Alkaline (units (unkno wn) date) Phosphatase unknown) (38-126) U/L (unknown) (no (unknown) (unknown) Anisocytosis (units (u nknown) date) unknown) (unknown) (no (unknown) (unknown) Anisocytosis (units (u nknown) date) unknown) (unknown) (no (unknown) (unknown) Anisocytosis 1+ H (unit s (unknown) date) unknown) (unknown) (no (unknown) (unknown) Antibiotics:: (units ( unknown) date) unknown) (unknown) (no (unknown) (unknown) Approved by: Adelaide (unit s (unknown) date) Maxwell Fritz on unknown) 01/01/2022 at 14:39 ? (unknown) (no (unknown) (unknown) Atypical Lymphs % (units (unknown) date) ( - 0) % unknown) (unknown) (no (unknown) (unknown) Atypical Lymphs % (units (unknown) date) 3.0 H ( - 0) % unknown) (unknown) (no (unknown) (unknown) Atypical Lymphs % (units (unknown) date) ( - 0) % unknown) (unknown) (no (unknown) (unknown) BUN (7-17) (units (unknown) date) mg/dL unknown) (unknown) (no (unknown) (unknown) BUN 7 (7-17) (units (unknown) date) mg/dL unknown) (unknown) (no (unknown) (unknown) BUN (7-17) mg/dL (unit s (unknown) date) unknown) (unknown) (no (unknown) (unknown) BUN/Creatinine (units (unknown) date) Ratio (-) unknown) (unknown) (no (unknown) (unknown) BUN/Creatinine (units (unknown) date) Ratio 14.9 unknown) (02-21) (unknown) (no (unknown) (unknown) BUN/Creatinine (units (unknown) date) Ratio (02-21) unknown) (unknown) (no (unknown) (unknown) Baso # (Auto) (units ( unknown) date) unknown) (unknown) (no (unknown) (unknown) Baso # (Auto) (units ( unknown) date) unknown) (unknown) (no (unknown) (unknown) Baso # (Auto) Not (unit s (unknown) date) Reportable unknown) (unknown) (no (unknown) (unknown) Baso % (Auto) (units ( unknown) date) unknown) (unknown) (no (unknown) (unknown) Baso % (Auto) (units ( unknown) date) unknown) (unknown) (no (unknown) (unknown) Baso % (Auto) Not (unit s (unknown) date) Reportable unknown) (unknown) (no (unknown) (unknown) Blood Culture Stat (units (unknown) date) unknown) (unknown) (no (unknown) (unknown) Blood Pressure (units (unknown) date) 109/68 01/03/ unknown) 09:55 (unknown) (no (unknown) (unknown) Blood Pressure (units (unknown) date) 109/68 121/75 unknown) (unknown) (no (unknown) (unknown) Blood Pressure (units (unknown) date) 116/59 L 128/66 unknown) (unknown) (no (unknown) (unknown) Blood Pressure (units (unknown) date) 123/59 L 128/68 unknown) (unknown) (no (unknown) (unknown) Blood Pressure (units (unknown) date) 125/64 114/59 L unknown) (unknown) (no (unknown) (unknown) Bone Marrow:? (units ( unknown) date) Marrow is of normal unknown) overall signal.? No acute vertebral body (unknown) (no (unknown) (unknown) CMP [Comprehensive (units (unknown) date) Metabolic Panel] unknown) Stat (unknown) (no (unknown) (unknown) [facility], [facility], XR unknown) LUMBAR SPINE 2-3V, 11/14/2021, 14:35. (unknown) (no (unknown) (unknown) COVID19 -Nasal (units (unknown) date) RAPID/Pre-Proc Stat unknown) (unknown) (no (unknown) (unknown) Calcium (units (unkno wn) date) (8.4-10.2) mg/dL unknown) (unknown) (no (unknown) (unknown) Calcium 8.6 (units (unknown) date) (8.4-10.2) mg/dL unknown) (unknown) (no (unknown) (unknown) Calcium (units (unkno wn) date) (8.4-10.2) mg/dL unknown) (unknown) (no (unknown) (unknown) Carbon Dioxide (units (unknown) date) (22-32) mmol/L unknown) (unknown) (no (unknown) (unknown) Carbon Dioxide (units (unknown) date) 29 (22-32) mmol/L unknown) (unknown) (no (unknown) (unknown) Carbon Dioxide (units (unknown) date) (22-32) mmol/L unknown) (unknown) (no (unknown) (unknown) Cardio: denies (units (unknown) date) chest pain, unknown) palpitations, edema (unknown) (no (unknown) (unknown) Cardiovascular: (units (unknown) date) regular rate and unknown) rhythm, no peripheral edema, warm extremities (unknown) (no (unknown) (unknown) Chief Complaint: (units (unknown) date) Weakness unknown) (unknown) (no (unknown) (unknown) Chlamydia Gonorrhea (unit s (unknown) date) PCR -URINE Stat unknown) (unknown) (no (unknown) (unknown) Chloride (units (unkno wn) date) (98-107) mmol/L unknown) (unknown) (no (unknown) (unknown) Chloride 102 (units (unknown) date) (98-107) mmol/L unknown) (unknown) (no (unknown) (unknown) Chloride (98-107) (unit s (unknown) date) mmol/L unknown) (unknown) (no (unknown) (unknown) Clinical (units (unkno wn) date) Impression: unknown) (unknown) (no (unknown) (unknown) Complete Blood (units (unknown) date) Count AUTO DIFF Stat unknown) (unknown) (no (unknown) (unknown) Course (units (unkno wn) date) unknown) (unknown) (no (unknown) (unknown) Creatinine (units (unk nown) date) (0.52-1.04) mg/dL unknown) (unknown) (no (unknown) (unknown) Creatinine 0.47 (units (unknown) date) L (0.52-1.04) unknown) mg/dL (unknown) (no (unknown) (unknown) Creatinine (units (unk nown) date) (0.52-1.04) mg/dL unknown) (unknown) (no (unknown) (unknown) Cyclobenzaprine HCl (unit s (unknown) date) (Cyclobenzaprine 10 unknown) Mg Tablet) 10 mg PO NOW ONE (unknown) (no (unknown) (unknown) : 1995 (units (unknown) date) Acct:[id number] unknown) (unknown) (no (unknown) (unknown) Departure (units (unkn own) date) unknown) (unknown) (no (unknown) (unknown) Dictated by: [place] (unit s (unknown) date) Maxwell Fritz on unknown) 01/01/2022 at 14:38 ? ? (unknown) (no (unknown) (unknown) Discharge Plan (units (unknown) date) unknown) (unknown) (no (unknown) (unknown) Discontinued (units (u nknown) date) Medications unknown) (unknown) (no (unknown) (unknown) ER Physician: (units ( unknown) date) Janis Neely unknown) (unknown) (no (unknown) (unknown) Eos % (Auto) (units (u nknown) date) unknown) (unknown) (no (unknown) (unknown) Eos % (Auto) (units (u nknown) date) unknown) (unknown) (no (unknown) (unknown) Eos % (Auto) Not (units (unknown) date) Reportable unknown) (unknown) (no (unknown) (unknown) Eosinophils % (units ( unknown) date) (Manual) (2-4) unknown) % (unknown) (no (unknown) (unknown) Eosinophils % (units ( unknown) date) (Manual) (2-4) % unknown) (unknown) (no (unknown) (unknown) Eosinophils % (units ( unknown) date) (Manual) 1.0 L unknown) (2-4) % (unknown) (no (unknown) (unknown) Estimated GFR (units ( unknown) date) (>60) mL/min unknown) (unknown) (no (unknown) (unknown) Estimated GFR > (units (unknown) date) 60 (>60) mL/min unknown) (unknown) (no (unknown) (unknown) Estimated GFR (units ( unknown) date) (>60) mL/min unknown) (unknown) (no (unknown) (unknown) Evaluation (units (unk nown) date) unknown) (unknown) (no (unknown) (unknown) Exam (units (unkno wn) date) unknown) (unknown) (no (unknown) (unknown) Exam Narrative: (units (unknown) date) unknown) (unknown) (no (unknown) (unknown) Eyes: denies visual (unit s (unknown) date) changes, eye pain unknown) (unknown) (no (unknown) (unknown) Eyes: pupils equal (units (unknown) date) round and reactive, unknown) EOMI, conjunctiva normal (unknown) (no (unknown) (unknown) FINDINGS:? (units (unk nown) date) unknown) (unknown) (no (unknown) (unknown) GI: abdomen soft, (units (unknown) date) nontender to unknown) palpation, nondistended, no masses, no exquisite (unknown) (no (unknown) (unknown) GI: denies (units (unk nown) date) abdominal pain, unknown) nausea, vomiting, or diarrhea (unknown) (no (unknown) (unknown) : denies dysuria, (unit s (unknown) date) hematuria, urinary unknown) retention, frequency or incontinence (unknown) (no (unknown) (unknown) General (units (unkno wn) date) unknown) (unknown) (no (unknown) (unknown) General: Endorses (units (unknown) date) chills, malaise, unknown) sweats, fatigue (unknown) (no (unknown) (unknown) General: (units (unkno wn) date) cooperative, unknown) comfortable, in no acute distress, well developed and well (unknown) (no (unknown) (unknown) GenericComposite[Pl (unit s (unknown) date) t Count unknown) (150-400) X10^3/uL ] (unknown) (no (unknown) (unknown) GenericComposite[Pl (unit s (unknown) date) t Count (150-400) unknown) X10^3/uL ] (unknown) (no (unknown) (unknown) GenericComposite[Pl (unit s (unknown) date) t Count 800 H unknown) (150-400) X10^3/uL ] (unknown) (no (unknown) (unknown) GenericComposite[RB (unit s (unknown) date) C (4.0-5.2) unknown) X10^6/uL ] (unknown) (no (unknown) (unknown) GenericComposite[RB (unit s (unknown) date) C (4.0-5.2) unknown) X10^6/uL ] (unknown) (no (unknown) (unknown) GenericComposite[RB (unit s (unknown) date) C 3.55 L unknown) (4.0-5.2) X10^6/uL ] (unknown) (no (unknown) (unknown) GenericComposite[WB (unit s (unknown) date) C (4.5-11.0) unknown) X10^3/uL ] (unknown) (no (unknown) (unknown) GenericComposite[WB (unit s (unknown) date) C (4.5-11.0) unknown) X10^3/uL ] (unknown) (no (unknown) (unknown) GenericComposite[WB (unit s (unknown) date) C 7.1 (4.5-11.0) unknown) X10^3/uL ] (unknown) (no (unknown) (unknown) Globulin (units (unkno wn) date) (1.7-4.1) g/dL unknown) (unknown) (no (unknown) (unknown) Globulin 6.4 H (units (unknown) date) (1.7-4.1) g/dL unknown) (unknown) (no (unknown) (unknown) Globulin (units (unkno wn) date) (1.7-4.1) g/dL unknown) (unknown) (no (unknown) (unknown) Glucose (units (unkno wn) date) (70-100) mg/dL unknown) (unknown) (no (unknown) (unknown) Glucose 118 H (units (unknown) date) (70-100) mg/dL unknown) (unknown) (no (unknown) (unknown) Glucose (70-100) (units (unknown) date) mg/dL unknown) (unknown) (no (unknown) (unknown) Glucose POC 136 (units (unknown) date) unknown) (unknown) (no (unknown) (unknown) 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 (units ( unknown) date) discharge is clear unknown) with small brown spots likely from menses, no (unknown) (no (unknown) (unknown) HPI - Sepsis (units (u nknown) date) unknown) (unknown) (no (unknown) (unknown) Hct (36-46) % (units (unknown) date) unknown) (unknown) (no (unknown) (unknown) Hct (36-46) % (units (unknown) date) unknown) (unknown) (no (unknown) (unknown) Hct 25.2 L (units (u nknown) date) (36-46) % unknown) (unknown) (no (unknown) (unknown) Head/Neck: denies (units (unknown) date) headache, neck pain, unknown) dizziness (unknown) (no (unknown) (unknown) Head: atraumatic, (units (unknown) date) symmetrical facial unknown) expressions (unknown) (no (unknown) (unknown) Hgb (12.0-16.0) (unit s (unknown) date) g/dL unknown) (unknown) (no (unknown) (unknown) Hgb (12.0-16.0) (units (unknown) date) g/dL unknown) (unknown) (no (unknown) (unknown) Hgb 8.1 L (units (un known) date) (12.0-16.0) g/dL unknown) (unknown) (no (unknown) (unknown) Hypochromasia (units ( unknown) date) unknown) (unknown) (no (unknown) (unknown) Hypochromasia (units ( unknown) date) unknown) (unknown) (no (unknown) (unknown) Hypochromasia 1+ (units (unknown) date) H unknown) (unknown) (no (unknown) (unknown) IMPRESSION:? (units (u nknown) date) unknown) (unknown) (no (unknown) (unknown) INDICATIONS:? (units ( unknown) date) lumbar radiculopathy unknown) (unknown) (no (unknown) (unknown) IV antimicrobials (units (unknown) date) will be initiated as unknown) soon as possible after recognition of (unknown) (no (unknown) (unknown) Image quality:? (units (unknown) date) Excellent.? unknown) (unknown) (no (unknown) (unknown) Imaging Data (units (u nknown) date) unknown) (unknown) (no (unknown) (unknown) Independently (units ( unknown) date) reviewed vitals unknown) signs and nursing notes. (unknown) (no (unknown) (unknown) Initial Vital Signs (unit s (unknown) date) unknown) (unknown) (no (unknown) (unknown) Initial Vital (units ( unknown) date) Signs: unknown) (unknown) (no (unknown) (unknown) Instructions: (units ( unknown) date) Sciatica unknown) (unknown) (no (unknown) (unknown) Ketorolac (units (unkn own) date) Tromethamine unknown) (Ketorolac 30 Mg/Ml Vial) 15 mg IV NOW ONE (unknown) (no (unknown) (unknown) L1-L2:? Normal (units (unknown) date) appearance.? unknown) (unknown) (no (unknown) (unknown) L2-L3:? Normal (units (unknown) date) appearance.? unknown) (unknown) (no (unknown) (unknown) L3-L4:? Normal (units (unknown) date) appearance.? unknown) (unknown) (no (unknown) (unknown) L4-L5:? Normal (units (unknown) date) appearance.? unknown) (unknown) (no (unknown) (unknown) L5-S1:? Normal (units (unknown) date) appearance.? unknown) (unknown) (no (unknown) (unknown) Lab Data (units (unkno wn) date) unknown) (unknown) (no (unknown) (unknown) Labs: (units (unkno wn) date) unknown) (unknown) (no (unknown) (unknown) Lactate (units (unkno wn) date) (0.7-2.1) mmol/L unknown) (unknown) (no (unknown) (unknown) Lactate (0.7-2.1) (unit s (unknown) date) mmol/L unknown) (unknown) (no (unknown) (unknown) Lactate 1.2 (units (u nknown) date) (0.7-2.1) mmol/L unknown) (unknown) (no (unknown) (unknown) Lactate (Lactic (units (unknown) date) Acid) Stat unknown) (unknown) (no (unknown) (unknown) Level 1 - Infection (unit s (unknown) date) unknown) (unknown) (no (unknown) (unknown) Limitations: no (units (unknown) date) limitations unknown) (unknown) (no (unknown) (unknown) Lumbago with (units (u nknown) date) sciatica unknown) (unknown) (no (unknown) (unknown) Lumbar MRI: (units (un known) date) unknown) (unknown) (no (unknown) (unknown) Lumbosacral (units (un known) date) radiculopathy at L5 unknown) (unknown) (no (unknown) (unknown) Lymph # (Auto) (units (unknown) date) unknown) (unknown) (no (unknown) (unknown) Lymph # (Auto) (units (unknown) date) unknown) (unknown) (no (unknown) (unknown) Lymph # (Auto) (units (unknown) date) Not Reportable unknown) (unknown) (no (unknown) (unknown) Lymph % (Auto) (units (unknown) date) unknown) (unknown) (no (unknown) (unknown) Lymph % (Auto) (units (unknown) date) unknown) (unknown) (no (unknown) (unknown) Lymph % (Auto) (units (unknown) date) Not Reportable unknown) (unknown) (no (unknown) (unknown) Lymphocytes % (units ( unknown) date) (Manual) (25-45) unknown) % (unknown) (no (unknown) (unknown) Lymphocytes % (units ( unknown) date) (Manual) (25-45) unknown) % (unknown) (no (unknown) (unknown) Lymphocytes % (units ( unknown) date) (Manual) 35.0 unknown) (25-45) % (unknown) (no (unknown) (unknown) MCH (26-34) PG (unit s (unknown) date) unknown) (unknown) (no (unknown) (unknown) MCH (26-34) PG (units (unknown) date) unknown) (unknown) (no (unknown) (unknown) MCH 22.7 L (units (u nknown) date) (26-34) PG unknown) (unknown) (no (unknown) (unknown) MCHC (30-36) % (unit s (unknown) date) unknown) (unknown) (no (unknown) (unknown) MCHC (30-36) % (units (unknown) date) unknown) (unknown) (no (unknown) (unknown) MCHC 32.0 (units (un known) date) (30-36) % unknown) (unknown) (no (unknown) (unknown) MCV (80-100) (units (unknown) date) fL unknown) (unknown) (no (unknown) (unknown) MCV (80-100) fL (units (unknown) date) unknown) (unknown) (no (unknown) (unknown) MCV 71.1 L (units (u nknown) date) (80-100) fL unknown) (unknown) (no (unknown) (unknown) MDM - Sepsis (units (u nknown) date) unknown) (unknown) (no (unknown) (unknown) MDM Narrative (units ( unknown) date) unknown) (unknown) (no (unknown) (unknown) MRI 2 days ago for (units (unknown) date) her lumbar. She is unknown) pending a primary care provider at this (unknown) (no (unknown) (unknown) MSK: denies joint (units (unknown) date) pain, muscle unknown) weakness, endorses low back pain which is (unknown) (no (unknown) (unknown) MSK: moves all (units ( unknown) date) extremities, unknown) ambulatory w/steady gait, neurovascularly intact, no (unknown) (no (unknown) (unknown) Medical History (units (unknown) date) (Reviewed 01/03/22 @ unknown) 16:55 by Janis Neely [facility]) (unknown) (no (unknown) (unknown) Medical decision (units (unknown) date) making narrative: unknown) (unknown) (no (unknown) (unknown) Microcytosis (units (u nknown) date) unknown) (unknown) (no (unknown) (unknown) Microcytosis (units (u nknown) date) unknown) (unknown) (no (unknown) (unknown) Microcytosis 1+ H (unit s (unknown) date) unknown) (unknown) (no (unknown) (unknown) Mode of arrival: (units (unknown) date) Wheelchair unknown) (unknown) (no (unknown) (unknown) [place] # (Auto) (units ( unknown) date) unknown) (unknown) (no (unknown) (unknown) [place] # (Auto) (units ( unknown) date) unknown) (unknown) (no (unknown) (unknown) [place] # (Auto) Not (unit s (unknown) date) Reportable unknown) (unknown) (no (unknown) (unknown) [place] % (Auto) (units ( unknown) date) unknown) (unknown) (no (unknown) (unknown) [place] % (Auto) (units ( unknown) date) unknown) (unknown) (no (unknown) (unknown) [place] % (Auto) Not (unit s (unknown) date) Reportable unknown) (unknown) (no (unknown) (unknown) Monocytes % (units (un known) date) (Manual) (2-11) unknown) % (unknown) (no (unknown) (unknown) Monocytes % (units (un known) date) (Manual) (2-11) % unknown) (unknown) (no (unknown) (unknown) Monocytes % (units (un known) date) (Manual) 7.0 unknown) (2-11) % (unknown) (no (unknown) (unknown) Mouth/Throat: moist (unit s (unknown) date) mucus membranes unknown) (unknown) (no (unknown) (unknown) N gonorrhoeae DNA (units (unknown) date) (PCR) unknown) (unknown) (no (unknown) (unknown) N gonorrhoeae DNA (units (unknown) date) (PCR) Not detected unknown) (unknown) (no (unknown) (unknown) Narrative (units (unkn own) date) unknown) (unknown) (no (unknown) (unknown) Narrative: (units (unk nown) date) unknown) (unknown) (no (unknown) (unknown) Neck: supple, (units ( unknown) date) atraumatic, without unknown) lymphadenopathy. (unknown) (no (unknown) (unknown) Neuro: denies (units ( unknown) date) numbness, tingling unknown) (unknown) (no (unknown) (unknown) Neuro: normal (units ( unknown) date) speech and unknown) cognition, A+O x3, normal tone (unknown) (no (unknown) (unknown) Neut % (Auto) (units ( unknown) date) unknown) (unknown) (no (unknown) (unknown) Neut % (Auto) (units ( unknown) date) unknown) (unknown) (no (unknown) (unknown) Neut % (Auto) Not (unit s (unknown) date) Reportable unknown) (unknown) (no (unknown) (unknown) Neutrophils # (units ( unknown) date) (Manual) unknown) ([id number]) /uL (unknown) (no (unknown) (unknown) Neutrophils # (units ( unknown) date) (Manual) unknown) ([id number]) /uL (unknown) (no (unknown) (unknown) Neutrophils # (units ( unknown) date) (Manual) 3834 unknown) ([id number]) /uL (unknown) (no (unknown) (unknown) New (units (unkno wn) date) unknown) (unknown) (no (unknown) (unknown) No Action (units (unkn own) date) unknown) (unknown) (no (unknown) (unknown) Noncontrast (units (un known) date) sagittal T1 spin unknown) echo and T2 fast echo, sagittal STIR, and T2 fast (unknown) (no (unknown) (unknown) Nose: nares patent, (unit s (unknown) date) no rhinorrhea unknown) (unknown) (no (unknown) (unknown) Ondansetron HCl (units (unknown) date) (Ondansetron 4 Mg/2 unknown) Ml Inj) 4 mg IV NOW ONE (unknown) (no (unknown) (unknown) Ordered: (units (unkno wn) date) unknown) (unknown) (no (unknown) (unknown) Orders (units (unkno wn) date) unknown) (unknown) (no (unknown) (unknown) PROCEDURE:? MR (units (unknown) date) LUMBAR SPINE WO CON unknown) (unknown) (no (unknown) (unknown) Paraspinous Soft (units (unknown) date) Tissues:? No unknown) paravertebral masses.? (unknown) (no (unknown) (unknown) Patient (units (unkno wn) date) Disposition: Home unknown) (unknown) (no (unknown) (unknown) Patient History (units (unknown) date) unknown) (unknown) (no (unknown) (unknown) Patient: (units (unkno wn) date) Isabelle Frey unknown) MR#: [id number] (unknown) (no (unknown) (unknown) Platelet Estimate (units (unknown) date) unknown) (unknown) (no (unknown) (unknown) Platelet Estimate (units (unknown) date) unknown) (unknown) (no (unknown) (unknown) Platelet Estimate (units (unknown) date) Increased on smear unknown) (unknown) (no (unknown) (unknown) Potassium (units (unkn own) date) (3.4-5.1) mmol/L unknown) (unknown) (no (unknown) (unknown) Potassium 3.9 (units (unknown) date) (3.4-5.1) mmol/L unknown) (unknown) (no (unknown) (unknown) Potassium (units (unkn own) date) (3.4-5.1) mmol/L unknown) (unknown) (no (unknown) (unknown) Prescriptions: (units (unknown) date) unknown) (unknown) (no (unknown) (unknown) Procalcitonin (units ( unknown) date) (<0.5) ng/mL unknown) (unknown) (no (unknown) (unknown) Procalcitonin (units ( unknown) date) (<0.5) ng/mL unknown) (unknown) (no (unknown) (unknown) Procalcitonin (units ( unknown) date) 0.14 (<0.5) ng/mL unknown) (unknown) (no (unknown) (unknown) Procalcitonin Stat (units (unknown) date) unknown) (unknown) (no (unknown) (unknown) Psych: mental (units ( unknown) date) status is grossly unknown) normal, congruent mood, normal affect, pleasant (unknown) (no (unknown) (unknown) Pulse Oximetry 99 (units (unknown) date) 01/03/22 09:55 unknown) (unknown) (no (unknown) (unknown) Pulse Oximetry 100 (units (unknown) date) 99 unknown) (unknown) (no (unknown) (unknown) Pulse Oximetry 98 (units (unknown) date) 100 unknown) (unknown) (no (unknown) (unknown) Pulse Oximetry 99 (units (unknown) date) 92 100 unknown) (unknown) (no (unknown) (unknown) Pulse Oximetry 99 (units (unknown) date) 99 99 unknown) (unknown) (no (unknown) (unknown) Pulse Rate 109 H (units (unknown) date) 01/03/22 09:55 unknown) (unknown) (no (unknown) (unknown) Pulse Rate 109 H 96 (unit s (unknown) date) H 95 H unknown) (unknown) (no (unknown) (unknown) Pulse Rate 80 80 (units (unknown) date) unknown) (unknown) (no (unknown) (unknown) Pulse Rate 85 85 (units (unknown) date) unknown) (unknown) (no (unknown) (unknown) Pulse Rate 86 98 H (units (unknown) date) 92 H unknown) (unknown) (no (unknown) (unknown) Qualifiers: (units (un known) date) unknown) (unknown) (no (unknown) (unknown) RBC Morphology (units (unknown) date) unknown) (unknown) (no (unknown) (unknown) RBC Morphology (units (unknown) date) unknown) (unknown) (no (unknown) (unknown) RBC Morphology (units (unknown) date) See below unknown) (unknown) (no (unknown) (unknown) RDW (11.6-14.8) (unit s (unknown) date) % unknown) (unknown) (no (unknown) (unknown) RDW (11.6-14.8) (units (unknown) date) % unknown) (unknown) (no (unknown) (unknown) RDW 18.9 H (units (u nknown) date) (11.6-14.8) % unknown) (unknown) (no (unknown) (unknown) Respiratory Rate (units (unknown) date) 17 unknown) (unknown) (no (unknown) (unknown) Respiratory Rate (units (unknown) date) 20 01/03/22 09:55 unknown) (unknown) (no (unknown) (unknown) Respiratory Rate 19 (unit s (unknown) date) 20 unknown) (unknown) (no (unknown) (unknown) Respiratory Rate 20 (unit s (unknown) date) 22 16 unknown) (unknown) (no (unknown) (unknown) Respiratory Rate 21 (unit s (unknown) date) 22 unknown) (unknown) (no (unknown) (unknown) Respiratory: denies (unit s (unknown) date) dyspnea, cough, unknown) orthopnea (unknown) (no (unknown) (unknown) Respiratory: normal (unit s (unknown) date) effort, able to unknown) speak in complete sentences, no audible (unknown) (no (unknown) (unknown) Result diagrams: (units (unknown) date) unknown) (unknown) (no (unknown) (unknown) Review of Systems (units (unknown) date) unknown) (unknown) (no (unknown) (unknown) SARS-CoV-2 (PCR) (units (unknown) date) (Negative) unknown) (unknown) (no (unknown) (unknown) SARS-CoV-2 (PCR) (units (unknown) date) (Negative) unknown) (unknown) (no (unknown) (unknown) SARS-CoV-2 (PCR) (units (unknown) date) Negative unknown) (Negative) (unknown) (no (unknown) (unknown) Seg Neutrophils % (units (unknown) date) (38-70) % unknown) (unknown) (no (unknown) (unknown) Seg Neutrophils % (units (unknown) date) (38-70) % unknown) (unknown) (no (unknown) (unknown) Seg Neutrophils % (units (unknown) date) 54.0 (38-70) % unknown) (unknown) (no (unknown) (unknown) Sepsis Guideline (units (unknown) date) Criteria unknown) (unknown) (no (unknown) (unknown) Sepsis Infection (units (unknown) date) Criteria Present: unknown) None (unknown) (no (unknown) (unknown) Sepsis Screen: No (units (unknown) date) Definite Risk unknown) (unknown) (no (unknown) (unknown) 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 unknown) She states that yesterday at work her (unknown) (no (unknown) (unknown) Signed By: (units (unk nown) date) unknown) (unknown) (no (unknown) (unknown) Skin: brisk (units (un known) date) capillary refill, no unknown) rash, no erythema (unknown) (no (unknown) (unknown) Skin: denies rash, (units (unknown) date) itching, skin unknown) lesions or other (unknown) (no (unknown) (unknown) Smoking Status: (units (unknown) date) Never smoker unknown) (unknown) (no (unknown) (unknown) Smoking Status: (units (unknown) date) Never smoker unknown) (unknown) (no (unknown) (unknown) Social History (units (unknown) date) (Reviewed 01/03/22 @ unknown) 16:55 by Janis Neely [facility]) (unknown) (no (unknown) (unknown) Sodium (units (unkno wn) date) (137-145) mmol/L unknown) (unknown) (no (unknown) (unknown) Sodium 138 (units ( unknown) date) (137-145) mmol/L unknown) (unknown) (no (unknown) (unknown) Sodium (137-145) (units (unknown) date) mmol/L unknown) (unknown) (no (unknown) (unknown) Sodium Chloride (units (unknown) date) (Normal Saline 0.9%) unknown) 1,000 mls @ 1,000 mls/hr IV BOLUS ONE (unknown) (no (unknown) (unknown) Source: patient (units (unknown) date) unknown) (unknown) (no (unknown) (unknown) Spinal Cord:? Conus (unit s (unknown) date) medullaris unknown) terminates at the L1-L2 disc space level.? (unknown) (no (unknown) (unknown) Stand Alone Forms: (units (unknown) date) Work Release Note unknown) (unknown) (no (unknown) (unknown) Substance Use Type: (unit s (unknown) date) marijuana unknown) (unknown) (no (unknown) (unknown) [facility] clinic to (unit s (unknown) date) establish care with unknown) primary care there and ask for a (unknown) (no (unknown) (unknown) T12-L1:? Normal (units (unknown) date) appearance.? unknown) (unknown) (no (unknown) (unknown) TECHNIQUE:? (units (un known) date) unknown) (unknown) (no (unknown) (unknown) Temperature (units (un known) date) unknown) (unknown) (no (unknown) (unknown) Temperature (units (un known) date) unknown) (unknown) (no (unknown) (unknown) Temperature 98.0 F (unit s (unknown) date) 01/03/22 09:55 unknown) (unknown) (no (unknown) (unknown) Temperature 98.3 F (unit s (unknown) date) unknown) (unknown) (no (unknown) (unknown) Temperature 98.0 F (units (unknown) date) unknown) (unknown) (no (unknown) (unknown) There is loss of (units (unknown) date) normal lumbar unknown) lordosis.? Alignment is otherwise normal. (unknown) (no (unknown) (unknown) This is a (units (unkn own) date) 26-year-old female unknown) with a history of psoriatic arthritis and has (unknown) (no (unknown) (unknown) This is a (units (unkno wn) date) 26-year-old female unknown) with history of psoriatic arthritis who presents to (unknown) (no (unknown) (unknown) Total Bilirubin (units (unknown) date) (0.2-1.3) mg/dL unknown) (unknown) (no (unknown) (unknown) Total Bilirubin (units (unknown) date) 0.3 (0.2-1.3) unknown) mg/dL (unknown) (no (unknown) (unknown) Total Bilirubin (units (unknown) date) (0.2-1.3) mg/dL unknown) (unknown) (no (unknown) (unknown) Total Counted (units ( unknown) date) unknown) (unknown) (no (unknown) (unknown) Total Counted (units ( unknown) date) unknown) (unknown) (no (unknown) (unknown) Total Counted 100 (unit s (unknown) date) unknown) (unknown) (no (unknown) (unknown) Total Protein (units ( unknown) date) (6.3-8.2) g/dL unknown) (unknown) (no (unknown) (unknown) Total Protein (units ( unknown) date) 9.8 H* (6.3-8.2) unknown) g/dL (unknown) (no (unknown) (unknown) Total Protein (units ( unknown) date) (6.3-8.2) g/dL unknown) (unknown) (no (unknown) (unknown) Treatment Initiated (unit s (unknown) date) unknown) (unknown) (no (unknown) (unknown) Ur Chlamydia DNA (units (unknown) date) (PCR) unknown) (unknown) (no (unknown) (unknown) Ur Chlamydia DNA (units (unknown) date) (PCR) Not detected unknown) (unknown) (no (unknown) (unknown) Ur Culture (units (unk nown) date) Indicated? unknown) (unknown) (no (unknown) (unknown) Ur Culture (units (unk nown) date) Indicated? unknown) (unknown) (no (unknown) (unknown) Ur Culture (units (unk nown) date) Indicated? unknown) Specimen cultured (unknown) (no (unknown) (unknown) Ur Leukocyte (units (u nknown) date) Esterase unknown) (NEGATIVE) (unknown) (no (unknown) (unknown) Ur Leukocyte (units (u nknown) date) Esterase 1+ H unknown) (NEGATIVE) (unknown) (no (unknown) (unknown) Ur Leukocyte (units (u nknown) date) Esterase unknown) (NEGATIVE) (unknown) (no (unknown) (unknown) Ur Specific [place] (unit s (unknown) date) (1.000-1.035) unknown) (unknown) (no (unknown) (unknown) Ur Specific [place] (unit s (unknown) date) 1.010 unknown) (1.000-1.035) (unknown) (no (unknown) (unknown) Ur Specific [place] (unit s (unknown) date) (1.000-1.035) unknown) (unknown) (no (unknown) (unknown) Ur Squamous Epith (units (unknown) date) Cells (0-5/HPF) unknown) (unknown) (no (unknown) (unknown) Ur Squamous Epith (units (unknown) date) Cells 1-5 /hpf unknown) (0-5/HPF) (unknown) (no (unknown) (unknown) Ur Squamous Epith (units (unknown) date) Cells (0-5/HPF) unknown) (unknown) (no (unknown) (unknown) Urinalysis and (units (unknown) date) Microscopic Stat unknown) (unknown) (no (unknown) (unknown) Urine Appearance (units (unknown) date) unknown) (unknown) (no (unknown) (unknown) Urine Appearance (units (unknown) date) unknown) (unknown) (no (unknown) (unknown) Urine Appearance (units (unknown) date) Clear unknown) (unknown) (no (unknown) (unknown) Urine Bacteria (units (unknown) date) (None) unknown) (unknown) (no (unknown) (unknown) Urine Bacteria (units (unknown) date) None seen (None) unknown) (unknown) (no (unknown) (unknown) Urine Bacteria (units (unknown) date) (None) unknown) (unknown) (no (unknown) (unknown) Urine Bilirubin (units (unknown) date) (NEGATIVE) unknown) (unknown) (no (unknown) (unknown) Urine Bilirubin (units (unknown) date) Negative (NEGATIVE) unknown) (unknown) (no (unknown) (unknown) Urine Bilirubin (units (unknown) date) (NEGATIVE) unknown) (unknown) (no (unknown) (unknown) Urine Color (units (un known) date) unknown) (unknown) (no (unknown) (unknown) Urine Color (units (un known) date) unknown) (unknown) (no (unknown) (unknown) Urine Color (units (un known) date) Yellow unknown) (unknown) (no (unknown) (unknown) Urine Culture Stat (units (unknown) date) unknown) (unknown) (no (unknown) (unknown) Urine Glucose (UA) (units (unknown) date) (Negative) g/dL unknown) (unknown) (no (unknown) (unknown) Urine Glucose (UA) (units (unknown) date) Negative unknown) (Negative) g/dL (unknown) (no (unknown) (unknown) Urine Glucose (UA) (units (unknown) date) (Negative) g/dL unknown) (unknown) (no (unknown) (unknown) Urine Ketones (units ( unknown) date) (NEGATIVE) unknown) (unknown) (no (unknown) (unknown) Urine Ketones (units ( unknown) date) Negative (NEGATIVE) unknown) (unknown) (no (unknown) (unknown) Urine Ketones (units ( unknown) date) (NEGATIVE) unknown) (unknown) (no (unknown) (unknown) Urine Nitrate (units ( unknown) date) (Negative) unknown) (unknown) (no (unknown) (unknown) Urine Nitrate (units ( unknown) date) Negative (Negative) unknown) (unknown) (no (unknown) (unknown) Urine Nitrate (units ( unknown) date) (Negative) unknown) (unknown) (no (unknown) (unknown) Urine Occult Blood (units (unknown) date) (Negative) unknown) (unknown) (no (unknown) (unknown) Urine Occult Blood (units (unknown) date) 3+ H (Negative) unknown) (unknown) (no (unknown) (unknown) Urine Occult Blood (units (unknown) date) (Negative) unknown) (unknown) (no (unknown) (unknown) Urine Protein (units ( unknown) date) (Negative) unknown) (unknown) (no (unknown) (unknown) Urine Protein (units ( unknown) date) Negative (Negative) unknown) (unknown) (no (unknown) (unknown) Urine Protein (units ( unknown) date) (Negative) unknown) (unknown) (no (unknown) (unknown) Urine RBC (units (unkn own) date) (0-5/HPF) unknown) (unknown) (no (unknown) (unknown) Urine RBC (units (unkn own) date) 10-30/hpf H unknown) (0-5/HPF) (unknown) (no (unknown) (unknown) Urine RBC (units (unkn own) date) (0-5/HPF) unknown) (unknown) (no (unknown) (unknown) Urine Urobilinogen (units (unknown) date) (0.2) E.U./dL unknown) (unknown) (no (unknown) (unknown) Urine Urobilinogen (units (unknown) date) 0.2 (0.2) unknown) E.U./dL (unknown) (no (unknown) (unknown) Urine Urobilinogen (units (unknown) date) (0.2) E.U./dL unknown) (unknown) (no (unknown) (unknown) Urine WBC (units (unkn own) date) (0-5/HPF) unknown) (unknown) (no (unknown) (unknown) Urine WBC (units (unkn own) date) 5-10/hpf H unknown) (0-5/HPF) (unknown) (no (unknown) (unknown) Urine WBC (units (unkn own) date) (0-5/HPF) unknown) (unknown) (no (unknown) (unknown) Urine pH (units (unkno wn) date) (4.5-8.0) unknown) (unknown) (no (unknown) (unknown) Urine pH 6.5 (units (unknown) date) (4.5-8.0) unknown) (unknown) (no (unknown) (unknown) Urine pH (units (unkno wn) date) (4.5-8.0) unknown) (unknown) (no (unknown) (unknown) Visualized cord (units (unknown) date) unknown) (unknown) (no (unknown) (unknown) Vital Signs (units (un known) date) unknown) (unknown) (no (unknown) (unknown) Vital signs: (units (u nknown) date) unknown) (unknown) (no (unknown) (unknown) Wet Prep Tric BV (units (unknown) date) Emilia Stat unknown) (unknown) (no (unknown) (unknown) [Embedded Image Not (unit s (unknown) date) Available] unknown) (unknown) (no (unknown) (unknown) alcohol intake (units (unknown) date) frequency: 0-2 unknown) drinks per day (unknown) (no (unknown) (unknown) and cooperative (units (unknown) date) unknown) (unknown) (no (unknown) (unknown) and encouraged to (units (unknown) date) stay hydrated, unknown) follow up with her primary care provider for a (unknown) (no (unknown) (unknown) and ibuprofen to (units (unknown) date) your pharmacy. unknown) Thank you for trusting us with your care, (unknown) (no (unknown) (unknown) any abnormal (units (u nknown) date) finding, and your unknown) MRI from 2 days ago shows loss of normal lumbar (unknown) (no (unknown) (unknown) appointment. Let (units (unknown) date) them know you were unknown) seen in the Emergency Department and that we (unknown) (no (unknown) (unknown) arthritis medicine. (unit s (unknown) date) I have called and unknown) muscle relaxers, Voltaren topical gel, (unknown) (no (unknown) (unknown) arthritis. No (units ( unknown) date) infectious sources unknown) were found, your kidney function is great with (unknown) (no (unknown) (unknown) asked that you be (units (unknown) date) seen for follow-up. unknown) We will electronically transmit a record (unknown) (no (unknown) (unknown) chronic disease and (units (unknown) date) chronic unknown) immunosuppression. UA shows leukocyte esterase, red (unknown) (no (unknown) (unknown) co-worker thought (units (unknown) date) that she was pale unknown) and she felt lightheaded so she drank some (unknown) (no (unknown) (unknown) complains of (units (u nknown) date) menstrual cramping unknown) although she has the IUD that was implanted in (unknown) (no (unknown) (unknown) compression (units (un known) date) unknown) (unknown) (no (unknown) (unknown) concerning (units (unk nown) date) symptoms, such as unknown) [fever greater than 101F, chills, worsening pain, (unknown) (no (unknown) (unknown) considered (units (unk nown) date) unknown) (unknown) (no (unknown) (unknown) count of 800, no (units (unknown) date) leukocytosis, unknown) hemoglobin of 8.1 and hematocrit of 25.2 without (unknown) (no (unknown) (unknown) curvature (units (unkn own) date) suggesting muscle unknown) spasm, it did not have any significant canal (unknown) (no (unknown) (unknown) demonstrates normal (unit s (unknown) date) signal and size.? unknown) (unknown) (no (unknown) (unknown) denies any (units (unk nown) date) incontinence. unknown) (unknown) (no (unknown) (unknown) e last 2 months (units (unknown) date) which has not been unknown) getting much better after 2 courses of (unknown) (no (unknown) (unknown) emergency (units (unkn own) date) department and at unknown) the walk-in clinic for this. She states she had an (unknown) (no (unknown) (unknown) emergency (units (unkno wn) date) department. Nausea unknown) vomiting, shortness of breath, fever or chills, no (unknown) (no (unknown) (unknown) establish care with [facility] ([facility]. (unknown) (no (unknown) (unknown) film.? (units (unkno wn) date) unknown) (unknown) (no (unknown) (unknown) fracture, (units (unkn own) date) intra-abdominal unknown) pathology chronic neuropathic pain and other (unknown) (no (unknown) (unknown) fractures.? (units (un known) date) unknown) (unknown) (no (unknown) (unknown) groomed (units (unkno wn) date) unknown) (unknown) (no (unknown) (unknown) hand (units (unkno wn) date) unknown) (unknown) (no (unknown) (unknown) have improved her (units (unknown) date) pain but now her unknown) pain is worse than it has ever been. She (unknown) (no (unknown) (unknown) her psoriatic (units ( unknown) date) arthritis but she unknown) moved here from [place] a few months ago and has (unknown) (no (unknown) (unknown) ibuprofen, uses (units (unknown) date) lidocaine patches, unknown) and states that tramadol made her feel weird (unknown) (no (unknown) (unknown) including; Epidural (unit s (unknown) date) abscess, cauda unknown) equina, mass occupying lesion, lumbar (unknown) (no (unknown) (unknown) left side Qualified (unit s (unknown) date) Code(s): M54.42 - unknown) Lumbago with sciatica, left side (unknown) (no (unknown) (unknown) may be performed.? (units (unknown) date) unknown) (unknown) (no (unknown) (unknown) month and has been (units (unknown) date) off of this for a unknown) few months. She states that she is from (unknown) (no (unknown) (unknown) neural impingement. (units (unknown) date) This is most likely unknown) a flare of her psoriatic arthritis, she (unknown) (no (unknown) (unknown) not had this (units (u nknown) date) medication for last unknown) couple of months. She has completed 2 or 3 (unknown) (no (unknown) (unknown) of today's note if (units (unknown) date) your PCP is in our unknown) system (unknown) (no (unknown) (unknown) ongoing low back (units (unknown) date) pain with sciatica unknown) down her left side, she has been seen in the (unknown) (no (unknown) (unknown) persistent vomiting (unit s (unknown) date) or other bothersome unknown) symptoms] (unknown) (no (unknown) (unknown) please follow-up (units (unknown) date) with your primary unknown) care provider as directed. If you develop (unknown) (no (unknown) (unknown) prescription of (units (unknown) date) Flexeril for muscle unknown) spasms, cephalexin for UTI, diclofenac gel (unknown) (no (unknown) (unknown) presented to the (units (unknown) date) emergency department unknown) and walk-in clinic for lumbar pain over th (unknown) (no (unknown) (unknown) priors to compare (units (unknown) date) to, no signs of unknown) bleeding. This is most likely anemia of (unknown) (no (unknown) (unknown) referral to (units (un known) date) Rheumatology for her unknown) medication. Patient has an elevated platelet (unknown) (no (unknown) (unknown) referral to (units (un known) date) Rheumatology. unknown) Multiple etiologies of back pain considered (unknown) (no (unknown) (unknown) relaxers which have (unit s (unknown) date) also been helpful, unknown) does not use naproxen but takes (unknown) (no (unknown) (unknown) sepsis state and (units (unknown) date) within one hour for unknown) both sepsis and septic shock. (unknown) (no (unknown) (unknown) set up primary care (unit s (unknown) date) yet at this were no unknown) mesh clinic where she will be going. (unknown) (no (unknown) (unknown) she did not like it. (unit s (unknown) date) Her MRI from 2 days unknown) ago of her lumbar spine shows lordosis (unknown) (no (unknown) (unknown) significant, (units (u nknown) date) unknown) (unknown) (no (unknown) (unknown) soon. (units (unkno wn) date) unknown) (unknown) (no (unknown) (unknown) spin echo (units (unkn own) date) unknown) (unknown) (no (unknown) (unknown) stenosis or nerve (units (unknown) date) impingement. No unknown) mesh clinic for an appointment with a primary (unknown) (no (unknown) (unknown) steroid bursts for (units (unknown) date) her back pain which unknown) have been helpful, has been using muscle (unknown) (no (unknown) (unknown) steroids, muscle (units (unknown) date) relaxers, unknown) anti-inflammatories. Patient states that she used to (unknown) (no (unknown) (unknown) take since he a an (units (unknown) date) injectable medicine unknown) for her psoriatic arthritis once per (unknown) (no (unknown) (unknown) tenderness with (units (unknown) date) exam, without unknown) guarding or rebound. No CVA tenderness, (unknown) (no (unknown) (unknown) thick white (units (un known) date) discharge, or unknown) lymphadenopathy. (unknown) (no (unknown) (unknown) through the lumbar (units (unknown) date) spine.? In cases unknown) with scoliosis, additional coronal T2 fast (unknown) (no (unknown) (unknown) vomiting, please (units (unknown) date) return to the unknown) emergency department. I hope you feel better (unknown) (no (unknown) (unknown) water which she (units (unknown) date) states made her feel unknown) better. She states that she has had (unknown) (no (unknown) (unknown) weakness (units (unkno wn) date) unknown) (unknown) (no (unknown) (unknown) weakness, (units (unkn own) date) incontinence, or any unknown) new abnormal changes like a high fever and (unknown) (no (unknown) (unknown) weakness. She (units (unknown) date) states that she has unknown) had 2 courses of steroids this month which (unknown) (no (unknown) (unknown) were no mesh (units (u nknown) date) Clinic, states she unknown) called today but they told her to go to the (unknown) (no (unknown) (unknown) wheezing, stridor, (units (unknown) date) or rales. No unknown) retractions or tachypnea. (unknown) (no (unknown) (unknown) with unknown (units (un known) date) etiology. Your unknown) workup today has ribs a low blood count, likely due Result panel 15 (unknown) (no (unknown) (unknown) (no value) (units (unk nown) date) unknown) (unknown) (no (unknown) (unknown) Radiologist's (units ( unknown) date) Impression: unknown) (unknown) (no (unknown) (unknown) *Please continue to (unit s (unknown) date) take your regular unknown) medications as directed. (unknown) (no (unknown) (unknown) Date of Service: (units (unknown) date) 01/03/22 unknown) (unknown) (no (unknown) (unknown) (no value) (units (unk nown) date) unknown) (unknown) (no (unknown) (unknown) <Electronically (units (unknown) date) signed by Macie unknown) Douglas Membreno> (unknown) (no (unknown) (unknown) <Electronically (units (unknown) date) signed by Janis Vasquez unknown) [employer]> (unknown) (no (unknown) (unknown) 01/03/22 10:34 (units (unknown) date) unknown) (unknown) (no (unknown) (unknown) 01/03/22 1705 (units ( unknown) date) unknown) (unknown) (no (unknown) (unknown) 01/04/22 0756 (units ( unknown) date) unknown) (unknown) (no (unknown) (unknown) 1 patch topical (units (unknown) date) DAILY PRN (Reason: unknown) pain) Qty: 15 0RF (unknown) (no (unknown) (unknown) 10 mg PO BEDTIME (units (unknown) date) 0RF unknown) (unknown) (no (unknown) (unknown) 2 g topical QID PRN (unit s (unknown) date) (Reason: pain) Qty: unknown) 100 0RF (unknown) (no (unknown) (unknown) 50 mg PO BID PRN (units (unknown) date) (Reason: pain) Qty: unknown) 14 0RF (unknown) (no (unknown) (unknown) 500 mg PO BID 5 (units (unknown) date) Days Qty: 10 0RF unknown) (unknown) (no (unknown) (unknown) 600 mg PO QPM PRN (units (unknown) date) (Reason: sciatica) unknown) Qty: 14 0RF (unknown) (no (unknown) (unknown) 7.5 mg PO BEDTIME (units (unknown) date) PRN (Reason: muscle unknown) spasm) Qty: 60 0RF (unknown) (no (unknown) (unknown) 800 mg PO Q8H PRN (units (unknown) date) (Reason: pain) Qty: unknown) 21 0RF (unknown) (no (unknown) (unknown) 800 mg PO Q8H PRN (units (unknown) date) (Reason: pain) Qty: unknown) 30 0RF (unknown) (no (unknown) (unknown) 800 mg PO Q8H PRN (units (unknown) date) (Reason: pain) Qty: unknown) 60 0RF (unknown) (no (unknown) (unknown) Admin: 01/03/22 (units (unknown) date) 12:50 Dose: 1,000 unknown) mls/hr (unknown) (no (unknown) (unknown) Documented by: (units (unknown) date) KSWANSO unknown) (unknown) (no (unknown) (unknown) Documented by: (units (unknown) date) NRHOADS unknown) (unknown) (no (unknown) (unknown) Emergency Report (units (unknown) date) unknown) (unknown) (no (unknown) (unknown) [facility] (units (unknown) date) [address] unknown) [place] [address] (unknown) (no (unknown) (unknown) Lab Results (units (un known) date) unknown) (unknown) (no (unknown) (unknown) Last Admin: (units (un known) date) 01/03/22 12:50 unknown) Dose: 4 mg (unknown) (no (unknown) (unknown) Last Admin: (units (un known) date) 01/03/22 14:33 unknown) Dose: 10 mg (unknown) (no (unknown) (unknown) Last Admin: (units (un known) date) 01/03/22 14:33 unknown) Dose: 15 mg (unknown) (no (unknown) (unknown) Last Infusion: (units (unknown) date) 01/03/22 13:53 unknown) Dose: 0 mls/hr (unknown) (no (unknown) (unknown) PO PER PKG DIR (units (unknown) date) unknown) (unknown) (no (unknown) (unknown) Point of Care (units ( unknown) date) Testing unknown) (unknown) (no (unknown) (unknown) Rx Instructions: (units (unknown) date) unknown) (unknown) (no (unknown) (unknown) See Rx Instructions (unit s (unknown) date) PO PER PKG DIR Qty: unknown) 21 0RF (unknown) (no (unknown) (unknown) Stop: 01/03/22 (units (unknown) date) 12:37 unknown) (unknown) (no (unknown) (unknown) Stop: 01/03/22 (units (unknown) date) 13:35 unknown) (unknown) (no (unknown) (unknown) Stop: 01/03/22 (units (unknown) date) 14:21 unknown) (unknown) (no (unknown) (unknown) Stop: 01/03/22 (units (unknown) date) 14:24 unknown) (unknown) (no (unknown) (unknown) Vital Signs - 8 hr (units (unknown) date) unknown) (unknown) (no (unknown) (unknown) [ ] New medication (units (unknown) date) written as a paper unknown) prescription (unknown) (no (unknown) (unknown) [ ] No new (units (unk nown) date) medications given unknown) (unknown) (no (unknown) (unknown) [x ] New medication (unit s (unknown) date) prescriptions sent unknown) to your pharmacy: [ [facility]] (unknown) (no (unknown) (unknown) apply to single (units (unknown) date) elbow, wrist or unknown) hand; for hand includes palm/fingers/back of (unknown) (no (unknown) (unknown) leave on most (units ( unknown) date) painful area for up unknown) to 12 hrs (unknown) (no (unknown) (unknown) (no value) (units (unk nown) date) unknown) (unknown) (no (unknown) (unknown) 01/03/22 01/03/22 (units (unknown) date) 01/03/22 Range/Units unknown) (unknown) (no (unknown) (unknown) 01/03/22 (units (unkno wn) date) Range/Units unknown) (unknown) (no (unknown) (unknown) 09:56 10:34 10:34 (units (unknown) date) unknown) (unknown) (no (unknown) (unknown) 10:39 10:39 12:40 (units (unknown) date) unknown) (unknown) (no (unknown) (unknown) 12:40 (units (unkno wn) date) unknown) (unknown) (no (unknown) (unknown) cephalexin 500 mg (units (unknown) date) capsule unknown) (unknown) (no (unknown) (unknown) cyclobenzaprine 10 (units (unknown) date) mg tablet unknown) (unknown) (no (unknown) (unknown) cyclobenzaprine 7.5 (unit s (unknown) date) mg tablet unknown) (unknown) (no (unknown) (unknown) diclofenac sodium (units (unknown) date) [Voltaren Arthritis unknown) Pain] 1 % gel (unknown) (no (unknown) (unknown) gabapentin 600 mg (units (unknown) date) tablet extended unknown) release 24 hr (unknown) (no (unknown) (unknown) ibuprofen 800 mg (units (unknown) date) tablet unknown) (unknown) (no (unknown) (unknown) lidocaine (units (unkn own) date) [Lidoderm] 5 % unknown) adhesive patch,medicated (unknown) (no (unknown) (unknown) methylprednisolone (units (unknown) date) [Medrol (Luis)] 4 mg unknown) tablets,dose pack (unknown) (no (unknown) (unknown) tramadol 50 mg (units (unknown) date) tablet unknown) (unknown) (no (unknown) (unknown) 01/03/22 (units (unkno wn) date) unknown) (unknown) (no (unknown) (unknown) Chronicity: acute (units (unknown) date) Back pain unknown) laterality: left Sciatica laterality: sciatica of (unknown) (no (unknown) (unknown) Psoriatic arthritis (unit s (unknown) date) unknown) (unknown) (no (unknown) (unknown) a creatinine 0.47 (units (unknown) date) you did not have any unknown) significant signs of dehydration on your (unknown) (no (unknown) (unknown) blood cells, white (units (unknown) date) blood cells, pending unknown) culture. Patient was given a (unknown) (no (unknown) (unknown) care provider as (units (unknown) date) soon as possible. unknown) Please request follow-up from the emergency (unknown) (no (unknown) (unknown) chills, fever, (units (unknown) date) abdominal pain or unknown) vomiting. 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 She is encouraged to go back to the (unknown) (no (unknown) (unknown) lab work, your (units (unknown) date) urine does not unknown) infection, your vaginal secretions did not have (unknown) (no (unknown) (unknown) suggestive of (units ( unknown) date) muscle spasm, no unknown) significant canal or foraminal stenosis, no (unknown) (no (unknown) (unknown) the emergency (units ( unknown) date) department for unknown) ongoing low back pain with sciatica on the left, (unknown) (no (unknown) (unknown) to your steroids (units (unknown) date) you been on this unknown) month and your history of psoriatic (unknown) (no (unknown) (unknown) <Macie Membreno DO (unit s (unknown) date) - Last Filed: unknown) 01/04/22 07:56> (unknown) (no (unknown) (unknown) <Janis Neely, (units (unknown) date) [facility] - Last Filed: unknown) 01/03/22 17:05> (unknown) (no (unknown) (unknown) *If you do not have (unit s (unknown) date) a primary care unknown) provider please contact [phone] to (unknown) (no (unknown) (unknown) *Please follow up (units (unknown) date) with your primary unknown) care provider in 2-3 days, call for an (unknown) (no (unknown) (unknown) *Return to (units (unk nown) date) Emergency Department unknown) if you should have any new, worsening or (unknown) (no (unknown) (unknown) *What to do: (units (u nknown) date) unknown) (unknown) (no (unknown) (unknown) *You have been (units (unknown) date) diagnosed with back unknown) pain with sciatica, groin and pelvis pain (unknown) (no (unknown) (unknown) 09:55 01/03/22 (units (unknown) date) unknown) (unknown) (no (unknown) (unknown) 1. Loss of normal (units (unknown) date) lumbar lordosis, unknown) suggestive of muscle spasm. (unknown) (no (unknown) (unknown) 11:36 01/03/22 (units (unknown) date) unknown) (unknown) (no (unknown) (unknown) 11:37 (units (unkno wn) date) unknown) (unknown) (no (unknown) (unknown) 12:00 01/03/22 (units (unknown) date) unknown) (unknown) (no (unknown) (unknown) 12:42 01/03/22 (units (unknown) date) unknown) (unknown) (no (unknown) (unknown) 12:44 (units (unkno wn) date) unknown) (unknown) (no (unknown) (unknown) 13:00 01/03/22 (units (unknown) date) unknown) (unknown) (no (unknown) (unknown) 13:26 01/03/22 (units (unknown) date) unknown) (unknown) (no (unknown) (unknown) 13:30 (units (unkno wn) date) unknown) (unknown) (no (unknown) (unknown) 14:00 01/03/22 (units (unknown) date) unknown) (unknown) (no (unknown) (unknown) 14:30 (units (unkno wn) date) unknown) (unknown) (no (unknown) (unknown) 2. No significant (units (unknown) date) canal, or foraminal unknown) stenosis.? No neural impingement. (unknown) (no (unknown) (unknown) 2019 and has not had (unit s (unknown) date) a menses but has unknown) started spotting recently. She denies any (unknown) (no (unknown) (unknown) [id number] (units (unkno wn) date) unknown) (unknown) (no (unknown) (unknown) ? (units (unkno wn) date) unknown) (unknown) (no (unknown) (unknown) ALT (<35) IU/L (unit s (unknown) date) unknown) (unknown) (no (unknown) (unknown) ALT 19 (<35) (units (unknown) date) IU/L unknown) (unknown) (no (unknown) (unknown) ALT (<35) IU/L (units (unknown) date) unknown) (unknown) (no (unknown) (unknown) AST (14-36) (units (unknown) date) IU/L unknown) (unknown) (no (unknown) (unknown) AST 21 (14-36) (units (unknown) date) IU/L unknown) (unknown) (no (unknown) (unknown) AST (14-36) IU/L (unit s (unknown) date) unknown) (unknown) (no (unknown) (unknown) Activity (units (unkno wn) date) Restrictions/Additio unknown) nal Instructions: (unknown) (no (unknown) (unknown) Age/Sex: 26 / F (units (unknown) date) unknown) (unknown) (no (unknown) (unknown) [place], 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, she has not (unknown) (no (unknown) (unknown) Albumin (units (unkno wn) date) (3.5-5.0) g/dL unknown) (unknown) (no (unknown) (unknown) Albumin 3.4 L (units (unknown) date) (3.5-5.0) g/dL unknown) (unknown) (no (unknown) (unknown) Albumin (3.5-5.0) (unit s (unknown) date) g/dL unknown) (unknown) (no (unknown) (unknown) Albumin/Globulin (units (unknown) date) Ratio (1.0-2.8) unknown) (unknown) (no (unknown) (unknown) Albumin/Globulin (units (unknown) date) Ratio 0.5 L unknown) (1.0-2.8) (unknown) (no (unknown) (unknown) Albumin/Globulin (units (unknown) date) Ratio (1.0-2.8) unknown) (unknown) (no (unknown) (unknown) Alignment and (units ( unknown) date) Curvature:? 5 lumbar unknown) type vertebral bodies are present by plain (unknown) (no (unknown) (unknown) Alkaline (units (unkno wn) date) Phosphatase unknown) (38-126) U/L (unknown) (no (unknown) (unknown) Alkaline (units (unkno wn) date) Phosphatase 109 unknown) (38-126) U/L (unknown) (no (unknown) (unknown) Alkaline (units (unkno wn) date) Phosphatase unknown) (38-126) U/L (unknown) (no (unknown) (unknown) Anisocytosis (units (u nknown) date) unknown) (unknown) (no (unknown) (unknown) Anisocytosis (units (u nknown) date) unknown) (unknown) (no (unknown) (unknown) Anisocytosis 1+ H (unit s (unknown) date) unknown) (unknown) (no (unknown) (unknown) Antibiotics:: (units ( unknown) date) unknown) (unknown) (no (unknown) (unknown) Approved by: Adelaide (unit s (unknown) date) Maxwell Fritz on unknown) 01/01/2022 at 14:39 ? (unknown) (no (unknown) (unknown) Atypical Lymphs % (units (unknown) date) ( - 0) % unknown) (unknown) (no (unknown) (unknown) Atypical Lymphs % (units (unknown) date) 3.0 H ( - 0) % unknown) (unknown) (no (unknown) (unknown) Atypical Lymphs % (units (unknown) date) ( - 0) % unknown) (unknown) (no (unknown) (unknown) BUN (7-17) (units (unknown) date) mg/dL unknown) (unknown) (no (unknown) (unknown) BUN 7 (7-17) (units (unknown) date) mg/dL unknown) (unknown) (no (unknown) (unknown) BUN (7-17) mg/dL (unit s (unknown) date) unknown) (unknown) (no (unknown) (unknown) BUN/Creatinine (units (unknown) date) Ratio (6-) unknown) (unknown) (no (unknown) (unknown) BUN/Creatinine (units (unknown) date) Ratio 14.9 unknown) (6-22) (unknown) (no (unknown) (unknown) BUN/Creatinine (units (unknown) date) Ratio (6) unknown) (unknown) (no (unknown) (unknown) Baso # (Auto) (units ( unknown) date) unknown) (unknown) (no (unknown) (unknown) Baso # (Auto) (units ( unknown) date) unknown) (unknown) (no (unknown) (unknown) Baso # (Auto) Not (unit s (unknown) date) Reportable unknown) (unknown) (no (unknown) (unknown) Baso % (Auto) (units ( unknown) date) unknown) (unknown) (no (unknown) (unknown) Baso % (Auto) (units ( unknown) date) unknown) (unknown) (no (unknown) (unknown) Baso % (Auto) Not (unit s (unknown) date) Reportable unknown) (unknown) (no (unknown) (unknown) Blood Pressure (units (unknown) date) 109/68 05/ unknown) 09:55 (unknown) (no (unknown) (unknown) Blood Pressure (units (unknown) date) 109/68 121/75 unknown) (unknown) (no (unknown) (unknown) Blood Pressure (units (unknown) date) 116/59 L 128/66 unknown) (unknown) (no (unknown) (unknown) Blood Pressure (units (unknown) date) 123/59 L 128/68 unknown) (unknown) (no (unknown) (unknown) Blood Pressure (units (unknown) date) 125/64 114/59 L unknown) (unknown) (no (unknown) (unknown) Bone Marrow:? (units ( unknown) date) Marrow is of normal unknown) overall signal.? No acute vertebral body (unknown) (no (unknown) (unknown) [facility], [facility], [facility]R unknown[facility] LUMBAR SPINE 2-3V, 11/14/2021, 14:35. (unknown) (no (unknown) (unknown) Calcium (units (o wn) date) (8.4-10.2) mg/dL unknown) (unknown) (no (unknown) (unknown) Calcium 8.6 (units (unknown) date) (8.4-10.2) mg/dL unknown) (unknown) (no (unknown) (unknown) Calcium (units (o wn) date) (8.4-10.2) mg/dL unknown) (unknown) (no (unknown) (unknown) Carbon Dioxide (units (unknown) date) (22-32) mmol/L unknown) (unknown) (no (unknown) (unknown) Carbon Dioxide (units (unknown) date) 29 (22-32) mmol/L unknown) (unknown) (no (unknown) (unknown) Carbon Dioxide (units (unknown) date) (22-32) mmol/L unknown) (unknown) (no (unknown) (unknown) Cardio: denies (units (unknown) date) chest pain, unknown) palpitations, edema (unknown) (no (unknown) (unknown) Cardiovascular: (units (unknown) date) regular rate and unknown) rhythm, no peripheral edema, warm extremities (unknown) (no (unknown) (unknown) Chief Complaint: (units (unknown) date) Weakness unknown) (unknown) (no (unknown) (unknown) Chloride (units (o wn) date) (98-107) mmol/L unknown) (unknown) (no (unknown) (unknown) Chloride 102 (units (unknown) date) (98-107) mmol/L unknown) (unknown) (no (unknown) (unknown) Chloride (98-107) (unit s (unknown) date) mmol/L unknown) (unknown) (no (unknown) (unknown) Clinical (units ( wn) date) Impression: unknown) (unknown) (no (unknown) (unknown) Cosign (units (o wn) date) unknown) (unknown) (no (unknown) (unknown) Course (units (o wn) date) unknown) (unknown) (no (unknown) (unknown) Creatinine (units (unk nown) date) (0.52-1.04) mg/dL unknown) (unknown) (no (unknown) (unknown) Creatinine 0.47 (units (unknown) date) L (0.52-1.04) unknown) mg/dL (unknown) (no (unknown) (unknown) Creatinine (units (unk nown) date) (0.52-1.04) mg/dL unknown) (unknown) (no (unknown) (unknown) Cyclobenzaprine HCl (unit s (unknown) date) (Cyclobenzaprine 10 unknown) Mg Tablet) 10 mg PO NOW ONE (unknown) (no (unknown) (unknown) : 1995 (units (unknown) date) Acct:[id number] unknown) (unknown) (no (unknown) (unknown) Departure (units (unkn own) date) unknown) (unknown) (no (unknown) (unknown) Dictated by: Adelaide (unit s (unknown) date) Maxwell Fritz on unknown) 01/01/2022 at 14:38 ? ? (unknown) (no (unknown) (unknown) Discharge Plan (units (unknown) date) unknown) (unknown) (no (unknown) (unknown) Discontinued (units (u nknown) date) Medications unknown) (unknown) (no (unknown) (unknown) ED Attending (units (u nknown) date) Cosignature unknown) Attestation: (unknown) (no (unknown) (unknown) ER Physician: (units ( unknown) date) Janis Neely unknown) (unknown) (no (unknown) (unknown) Eos % (Auto) (units (u nknown) date) unknown) (unknown) (no (unknown) (unknown) Eos % (Auto) (units (u nknown) date) unknown) (unknown) (no (unknown) (unknown) Eos % (Auto) Not (units (unknown) date) Reportable unknown) (unknown) (no (unknown) (unknown) Eosinophils % (units ( unknown) date) (Manual) (2-4) unknown) % (unknown) (no (unknown) (unknown) Eosinophils % (units ( unknown) date) (Manual) (2-4) % unknown) (unknown) (no (unknown) (unknown) Eosinophils % (units ( unknown) date) (Manual) 1.0 L unknown) (2-4) % (unknown) (no (unknown) (unknown) Estimated GFR (units ( unknown) date) (>60) mL/min unknown) (unknown) (no (unknown) (unknown) Estimated GFR > (units (unknown) date) 60 (>60) mL/min unknown) (unknown) (no (unknown) (unknown) Estimated GFR (units ( unknown) date) (>60) mL/min unknown) (unknown) (no (unknown) (unknown) Evaluation (units (unk nown) date) unknown) (unknown) (no (unknown) (unknown) Exam (units (unkno wn) date) unknown) (unknown) (no (unknown) (unknown) Exam Narrative: (units (unknown) date) unknown) (unknown) (no (unknown) (unknown) Eyes: denies visual (unit s (unknown) date) changes, eye pain unknown) (unknown) (no (unknown) (unknown) Eyes: pupils equal (units (unknown) date) round and reactive, unknown) EOMI, conjunctiva normal (unknown) (no (unknown) (unknown) FINDINGS:? (units (unk nown) date) unknown) (unknown) (no (unknown) (unknown) GI: abdomen soft, (units (unknown) date) nontender to unknown) palpation, nondistended, no masses, no exquisite (unknown) (no (unknown) (unknown) GI: denies (units (unk nown) date) abdominal pain, unknown) nausea, vomiting, or diarrhea (unknown) (no (unknown) (unknown) : denies dysuria, (unit s (unknown) date) hematuria, urinary unknown) retention, frequency or incontinence (unknown) (no (unknown) (unknown) General (units (unkno wn) date) unknown) (unknown) (no (unknown) (unknown) General: Endorses (units (unknown) date) chills, malaise, unknown) sweats, fatigue (unknown) (no (unknown) (unknown) General: (units (unkno wn) date) cooperative, unknown) comfortable, in no acute distress, well developed and well (unknown) (no (unknown) (unknown) GenericComposite[Pl (unit s (unknown) date) t Count unknown) (150-400) X10^3/uL ] (unknown) (no (unknown) (unknown) GenericComposite[Pl (unit s (unknown) date) t Count (150-400) unknown) X10^3/uL ] (unknown) (no (unknown) (unknown) GenericComposite[Pl (unit s (unknown) date) t Count 800 H unknown) (150-400) X10^3/uL ] (unknown) (no (unknown) (unknown) GenericComposite[RB (unit s (unknown) date) C (4.0-5.2) unknown) X10^6/uL ] (unknown) (no (unknown) (unknown) GenericComposite[RB (unit s (unknown) date) C (4.0-5.2) unknown) X10^6/uL ] (unknown) (no (unknown) (unknown) GenericComposite[RB (unit s (unknown) date) C 3.55 L unknown) (4.0-5.2) X10^6/uL ] (unknown) (no (unknown) (unknown) GenericComposite[WB (unit s (unknown) date) C (4.5-11.0) unknown) X10^3/uL ] (unknown) (no (unknown) (unknown) GenericComposite[WB (unit s (unknown) date) C (4.5-11.0) unknown) X10^3/uL ] (unknown) (no (unknown) (unknown) GenericComposite[WB (unit s (unknown) date) C 7.1 (4.5-11.0) unknown) X10^3/uL ] (unknown) (no (unknown) (unknown) Globulin (units (unkno wn) date) (1.7-4.1) g/dL unknown) (unknown) (no (unknown) (unknown) Globulin 6.4 H (units (unknown) date) (1.7-4.1) g/dL unknown) (unknown) (no (unknown) (unknown) Globulin (units (unkno wn) date) (1.7-4.1) g/dL unknown) (unknown) (no (unknown) (unknown) Glucose (units (unkno wn) date) (70-100) mg/dL unknown) (unknown) (no (unknown) (unknown) Glucose 118 H (units (unknown) date) (70-100) mg/dL unknown) (unknown) (no (unknown) (unknown) Glucose (70-100) (units (unknown) date) mg/dL unknown) (unknown) (no (unknown) (unknown) Glucose POC 136 (units (unknown) date) unknown) (unknown) (no (unknown) (unknown) 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 (units ( unknown) date) discharge is clear unknown) with small brown spots likely from menses, no (unknown) (no (unknown) (unknown) HPI - Sepsis (units (u nknown) date) unknown) (unknown) (no (unknown) (unknown) Hct (36-46) % (units (unknown) date) unknown) (unknown) (no (unknown) (unknown) Hct (36-46) % (units (unknown) date) unknown) (unknown) (no (unknown) (unknown) Hct 25.2 L (units (u nknown) date) (36-46) % unknown) (unknown) (no (unknown) (unknown) Head/Neck: denies (units (unknown) date) headache, neck pain, unknown) dizziness (unknown) (no (unknown) (unknown) Head: atraumatic, (units (unknown) date) symmetrical facial unknown) expressions (unknown) (no (unknown) (unknown) Hgb (12.0-16.0) (unit s (unknown) date) g/dL unknown) (unknown) (no (unknown) (unknown) Hgb (12.0-16.0) (units (unknown) date) g/dL unknown) (unknown) (no (unknown) (unknown) Hgb 8.1 L (units (un known) date) (12.0-16.0) g/dL unknown) (unknown) (no (unknown) (unknown) Hypochromasia (units ( unknown) date) unknown) (unknown) (no (unknown) (unknown) Hypochromasia (units ( unknown) date) unknown) (unknown) (no (unknown) (unknown) Hypochromasia 1+ (units (unknown) date) H unknown) (unknown) (no (unknown) (unknown) I was immediately (units (unknown) date) available in the unknown) department for consultation. Documentation (unknown) (no (unknown) (unknown) IMPRESSION:? (units (u nknown) date) unknown) (unknown) (no (unknown) (unknown) INDICATIONS:? (units ( unknown) date) lumbar radiculopathy unknown) (unknown) (no (unknown) (unknown) IV antimicrobials (units (unknown) date) will be initiated as unknown) soon as possible after recognition of (unknown) (no (unknown) (unknown) Image quality:? (units (unknown) date) Excellent.? unknown) (unknown) (no (unknown) (unknown) Imaging Data (units (u nknown) date) unknown) (unknown) (no (unknown) (unknown) Independently (units ( unknown) date) reviewed vitals unknown) signs and nursing notes. (unknown) (no (unknown) (unknown) Initial Vital Signs (unit s (unknown) date) unknown) (unknown) (no (unknown) (unknown) Initial Vital (units ( unknown) date) Signs: unknown) (unknown) (no (unknown) (unknown) Instructions: (units ( unknown) date) Sciatica unknown) (unknown) (no (unknown) (unknown) Ketorolac (units (unkn own) date) Tromethamine unknown) (Ketorolac 30 Mg/Ml Vial) 15 mg IV NOW ONE (unknown) (no (unknown) (unknown) L1-L2:? Normal (units (unknown) date) appearance.? unknown) (unknown) (no (unknown) (unknown) L2-L3:? Normal (units (unknown) date) appearance.? unknown) (unknown) (no (unknown) (unknown) L3-L4:? Normal (units (unknown) date) appearance.? unknown) (unknown) (no (unknown) (unknown) L4-L5:? Normal (units (unknown) date) appearance.? unknown) (unknown) (no (unknown) (unknown) L5-S1:? Normal (units (unknown) date) appearance.? unknown) (unknown) (no (unknown) (unknown) Lab Data (units (unkno wn) date) unknown) (unknown) (no (unknown) (unknown) Labs: (units (unkno wn) date) unknown) (unknown) (no (unknown) (unknown) Lactate (units (unkno wn) date) (0.7-2.1) mmol/L unknown) (unknown) (no (unknown) (unknown) Lactate (0.7-2.1) (unit s (unknown) date) mmol/L unknown) (unknown) (no (unknown) (unknown) Lactate 1.2 (units (u nknown) date) (0.7-2.1) mmol/L unknown) (unknown) (no (unknown) (unknown) Level 1 - Infection (unit s (unknown) date) unknown) (unknown) (no (unknown) (unknown) Limitations: no (units (unknown) date) limitations unknown) (unknown) (no (unknown) (unknown) Lumbago with (units (u nknown) date) sciatica unknown) (unknown) (no (unknown) (unknown) Lumbar MRI: (units (un known) date) unknown) (unknown) (no (unknown) (unknown) Lumbosacral (units (un known) date) radiculopathy at L5 unknown) (unknown) (no (unknown) (unknown) Lymph # (Auto) (units (unknown) date) unknown) (unknown) (no (unknown) (unknown) Lymph # (Auto) (units (unknown) date) unknown) (unknown) (no (unknown) (unknown) Lymph # (Auto) (units (unknown) date) Not Reportable unknown) (unknown) (no (unknown) (unknown) Lymph % (Auto) (units (unknown) date) unknown) (unknown) (no (unknown) (unknown) Lymph % (Auto) (units (unknown) date) unknown) (unknown) (no (unknown) (unknown) Lymph % (Auto) (units (unknown) date) Not Reportable unknown) (unknown) (no (unknown) (unknown) Lymphocytes % (units ( unknown) date) (Manual) (25-45) unknown) % (unknown) (no (unknown) (unknown) Lymphocytes % (units ( unknown) date) (Manual) (25-45) unknown) % (unknown) (no (unknown) (unknown) Lymphocytes % (units ( unknown) date) (Manual) 35.0 unknown) (25-45) % (unknown) (no (unknown) (unknown) MCH (26-34) PG (unit s (unknown) date) unknown) (unknown) (no (unknown) (unknown) MCH (26-34) PG (units (unknown) date) unknown) (unknown) (no (unknown) (unknown) MCH 22.7 L (units (u nknown) date) (26-34) PG unknown) (unknown) (no (unknown) (unknown) MCHC (30-36) % (unit s (unknown) date) unknown) (unknown) (no (unknown) (unknown) MCHC (30-36) % (units (unknown) date) unknown) (unknown) (no (unknown) (unknown) MCHC 32.0 (units (un known) date) (30-36) % unknown) (unknown) (no (unknown) (unknown) MCV (80-100) (units (unknown) date) fL unknown) (unknown) (no (unknown) (unknown) MCV (80-100) fL (units (unknown) date) unknown) (unknown) (no (unknown) (unknown) MCV 71.1 L (units (u nknown) date) (80-100) fL unknown) (unknown) (no (unknown) (unknown) MDM - Sepsis (units (u nknown) date) unknown) (unknown) (no (unknown) (unknown) MDM Narrative (units ( unknown) date) unknown) (unknown) (no (unknown) (unknown) MRI 2 days ago for (units (unknown) date) her lumbar. She is unknown) pending a primary care provider at this (unknown) (no (unknown) (unknown) MSK: denies joint (units (unknown) date) pain, muscle unknown) weakness, endorses low back pain which is (unknown) (no (unknown) (unknown) MSK: moves all (units ( unknown) date) extremities, unknown) ambulatory w/steady gait, neurovascularly intact, no (unknown) (no (unknown) (unknown) Medical History (units (unknown) date) (Reviewed 01/03/22 @ unknown) 16:55 by Janis Neely [facility]) (unknown) (no (unknown) (unknown) Medical decision (units (unknown) date) making narrative: unknown) (unknown) (no (unknown) (unknown) Microcytosis (units (u nknown) date) unknown) (unknown) (no (unknown) (unknown) Microcytosis (units (u nknown) date) unknown) (unknown) (no (unknown) (unknown) Microcytosis 1+ H (unit s (unknown) date) unknown) (unknown) (no (unknown) (unknown) Mode of arrival: (units (unknown) date) Wheelchair unknown) (unknown) (no (unknown) (unknown) [place] # (Auto) (units ( unknown) date) unknown) (unknown) (no (unknown) (unknown) [place] # (Auto) (units ( unknown) date) unknown) (unknown) (no (unknown) (unknown) [place] # (Auto) Not (unit s (unknown) date) Reportable unknown) (unknown) (no (unknown) (unknown) [place] % (Auto) (units ( unknown) date) unknown) (unknown) (no (unknown) (unknown) [place] % (Auto) (units ( unknown) date) unknown) (unknown) (no (unknown) (unknown) [place] % (Auto) Not (unit s (unknown) date) Reportable unknown) (unknown) (no (unknown) (unknown) Monocytes % (units (un known) date) (Manual) (2-11) unknown) % (unknown) (no (unknown) (unknown) Monocytes % (units (un known) date) (Manual) (2-11) % unknown) (unknown) (no (unknown) (unknown) Monocytes % (units (un known) date) (Manual) 7.0 unknown) (2-11) % (unknown) (no (unknown) (unknown) Mouth/Throat: moist (unit s (unknown) date) mucus membranes unknown) (unknown) (no (unknown) (unknown) N gonorrhoeae DNA (units (unknown) date) (PCR) unknown) (unknown) (no (unknown) (unknown) N gonorrhoeae DNA (units (unknown) date) (PCR) Not detected unknown) (unknown) (no (unknown) (unknown) Narrative (units (unkn own) date) unknown) (unknown) (no (unknown) (unknown) Narrative: (units (unk nown) date) unknown) (unknown) (no (unknown) (unknown) Neck: supple, (units ( unknown) date) atraumatic, without unknown) lymphadenopathy. (unknown) (no (unknown) (unknown) Neuro: denies (units ( unknown) date) numbness, tingling unknown) (unknown) (no (unknown) (unknown) Neuro: normal (units ( unknown) date) speech and unknown) cognition, A+O x3, normal tone (unknown) (no (unknown) (unknown) Neut % (Auto) (units ( unknown) date) unknown) (unknown) (no (unknown) (unknown) Neut % (Auto) (units ( unknown) date) unknown) (unknown) (no (unknown) (unknown) Neut % (Auto) Not (unit s (unknown) date) Reportable unknown) (unknown) (no (unknown) (unknown) Neutrophils # (units ( unknown) date) (Manual) unknown) ([id number]) /uL (unknown) (no (unknown) (unknown) Neutrophils # (units ( unknown) date) (Manual) unknown) ([id number]) /uL (unknown) (no (unknown) (unknown) Neutrophils # (units ( unknown) date) (Manual) 3834 unknown) ([id number]) /uL (unknown) (no (unknown) (unknown) New (units (unkno wn) date) unknown) (unknown) (no (unknown) (unknown) No Action (units (unkn own) date) unknown) (unknown) (no (unknown) (unknown) Noncontrast (units (un known) date) sagittal T1 spin unknown) echo and T2 fast echo, sagittal STIR, and T2 fast (unknown) (no (unknown) (unknown) Nose: nares patent, (unit s (unknown) date) no rhinorrhea unknown) (unknown) (no (unknown) (unknown) Ondansetron HCl (units (unknown) date) (Ondansetron 4 Mg/2 unknown) Ml Inj) 4 mg IV NOW ONE (unknown) (no (unknown) (unknown) Ordered: (units (unkno wn) date) unknown) (unknown) (no (unknown) (unknown) Orders (units (unkno wn) date) unknown) (unknown) (no (unknown) (unknown) PROCEDURE:? MR (units (unknown) date) LUMBAR SPINE WO CON unknown) (unknown) (no (unknown) (unknown) Paraspinous Soft (units (unknown) date) Tissues:? No unknown) paravertebral masses.? (unknown) (no (unknown) (unknown) Patient (units (unkno wn) date) Disposition: Home unknown) (unknown) (no (unknown) (unknown) Patient History (units (unknown) date) unknown) (unknown) (no (unknown) (unknown) Patient: (units (unkno wn) date) Isabelle Frey unknown) MR#: [id number] (unknown) (no (unknown) (unknown) Platelet Estimate (units (unknown) date) unknown) (unknown) (no (unknown) (unknown) Platelet Estimate (units (unknown) date) unknown) (unknown) (no (unknown) (unknown) Platelet Estimate (units (unknown) date) Increased on smear unknown) (unknown) (no (unknown) (unknown) Potassium (units (unkn own) date) (3.4-5.1) mmol/L unknown) (unknown) (no (unknown) (unknown) Potassium 3.9 (units (unknown) date) (3.4-5.1) mmol/L unknown) (unknown) (no (unknown) (unknown) Potassium (units (unkn own) date) (3.4-5.1) mmol/L unknown) (unknown) (no (unknown) (unknown) Prescriptions: (units (unknown) date) unknown) (unknown) (no (unknown) (unknown) Procalcitonin (units ( unknown) date) (<0.5) ng/mL unknown) (unknown) (no (unknown) (unknown) Procalcitonin (units ( unknown) date) (<0.5) ng/mL unknown) (unknown) (no (unknown) (unknown) Procalcitonin (units ( unknown) date) 0.14 (<0.5) ng/mL unknown) (unknown) (no (unknown) (unknown) Psych: mental (units ( unknown) date) status is grossly unknown) normal, congruent mood, normal affect, pleasant (unknown) (no (unknown) (unknown) Pulse Oximetry 99 (units (unknown) date) 01/03/22 09:55 unknown) (unknown) (no (unknown) (unknown) Pulse Oximetry 100 (units (unknown) date) 99 unknown) (unknown) (no (unknown) (unknown) Pulse Oximetry 98 (units (unknown) date) 100 unknown) (unknown) (no (unknown) (unknown) Pulse Oximetry 99 (units (unknown) date) 92 100 unknown) (unknown) (no (unknown) (unknown) Pulse Oximetry 99 (units (unknown) date) 99 99 unknown) (unknown) (no (unknown) (unknown) Pulse Rate 109 H (units (unknown) date) 01/03/22 09:55 unknown) (unknown) (no (unknown) (unknown) Pulse Rate 109 H 96 (unit s (unknown) date) H 95 H unknown) (unknown) (no (unknown) (unknown) Pulse Rate 80 80 (units (unknown) date) unknown) (unknown) (no (unknown) (unknown) Pulse Rate 85 85 (units (unknown) date) unknown) (unknown) (no (unknown) (unknown) Pulse Rate 86 98 H (units (unknown) date) 92 H unknown) (unknown) (no (unknown) (unknown) Qualifiers: (units (un known) date) unknown) (unknown) (no (unknown) (unknown) RBC Morphology (units (unknown) date) unknown) (unknown) (no (unknown) (unknown) RBC Morphology (units (unknown) date) unknown) (unknown) (no (unknown) (unknown) RBC Morphology (units (unknown) date) See below unknown) (unknown) (no (unknown) (unknown) RDW (11.6-14.8) (unit s (unknown) date) % unknown) (unknown) (no (unknown) (unknown) RDW (11.6-14.8) (units (unknown) date) % unknown) (unknown) (no (unknown) (unknown) RDW 18.9 H (units (u nknown) date) (11.6-14.8) % unknown) (unknown) (no (unknown) (unknown) Respiratory Rate (units (unknown) date) 17 unknown) (unknown) (no (unknown) (unknown) Respiratory Rate (units (unknown) date) 20 01/03/22 09:55 unknown) (unknown) (no (unknown) (unknown) Respiratory Rate 19 (unit s (unknown) date) 20 unknown) (unknown) (no (unknown) (unknown) Respiratory Rate 20 (unit s (unknown) date) 22 16 unknown) (unknown) (no (unknown) (unknown) Respiratory Rate 21 (unit s (unknown) date) 22 unknown) (unknown) (no (unknown) (unknown) Respiratory: denies (unit s (unknown) date) dyspnea, cough, unknown) orthopnea (unknown) (no (unknown) (unknown) Respiratory: normal (unit s (unknown) date) effort, able to unknown) speak in complete sentences, no audible (unknown) (no (unknown) (unknown) Result diagrams: (units (unknown) date) unknown) (unknown) (no (unknown) (unknown) Review of Systems (units (unknown) date) unknown) (unknown) (no (unknown) (unknown) SARS-CoV-2 (PCR) (units (unknown) date) (Negative) unknown) (unknown) (no (unknown) (unknown) SARS-CoV-2 (PCR) (units (unknown) date) (Negative) unknown) (unknown) (no (unknown) (unknown) SARS-CoV-2 (PCR) (units (unknown) date) Negative unknown) (Negative) (unknown) (no (unknown) (unknown) Seg Neutrophils % (units (unknown) date) (38-70) % unknown) (unknown) (no (unknown) (unknown) Seg Neutrophils % (units (unknown) date) (38-70) % unknown) (unknown) (no (unknown) (unknown) Seg Neutrophils % (units (unknown) date) 54.0 (38-70) % unknown) (unknown) (no (unknown) (unknown) Sepsis Guideline (units (unknown) date) Criteria unknown) (unknown) (no (unknown) (unknown) Sepsis Infection (units (unknown) date) Criteria Present: unknown) None (unknown) (no (unknown) (unknown) Sepsis Screen: No (units (unknown) date) Definite Risk unknown) (unknown) (no (unknown) (unknown) 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 unknown) She states that yesterday at work her (unknown) (no (unknown) (unknown) Signed By: (units (unk nown) date) unknown) (unknown) (no (unknown) (unknown) Skin: brisk (units (un known) date) capillary refill, no unknown) rash, no erythema (unknown) (no (unknown) (unknown) Skin: denies rash, (units (unknown) date) itching, skin unknown) lesions or other (unknown) (no (unknown) (unknown) Smoking Status: (units (unknown) date) Never smoker unknown) (unknown) (no (unknown) (unknown) Smoking Status: (units (unknown) date) Never smoker unknown) (unknown) (no (unknown) (unknown) Social History (units (unknown) date) (Reviewed 01/03/22 @ unknown) 16:55 by Janis Neely [facility]) (unknown) (no (unknown) (unknown) Sodium (units (unkno wn) date) (137-145) mmol/L unknown) (unknown) (no (unknown) (unknown) Sodium 138 (units ( unknown) date) (137-145) mmol/L unknown) (unknown) (no (unknown) (unknown) Sodium (137-145) (units (unknown) date) mmol/L unknown) (unknown) (no (unknown) (unknown) Sodium Chloride (units (unknown) date) (Normal Saline 0.9%) unknown) 1,000 mls @ 1,000 mls/hr IV BOLUS ONE (unknown) (no (unknown) (unknown) Source: patient (units (unknown) date) unknown) (unknown) (no (unknown) (unknown) Spinal Cord:? Conus (unit s (unknown) date) medullaris unknown) terminates at the L1-L2 disc space level.? (unknown) (no (unknown) (unknown) Stand Alone Forms: (units (unknown) date) Work Release Note unknown) (unknown) (no (unknown) (unknown) Substance Use Type: (unit s (unknown) date) marijuana unknown) (unknown) (no (unknown) (unknown) [facility] to (unit s (unknown) date) establish care with unknown) primary care there and ask for a (unknown) (no (unknown) (unknown) T12-L1:? Normal (units (unknown) date) appearance.? unknown) (unknown) (no (unknown) (unknown) TECHNIQUE:? (units (un known) date) unknown) (unknown) (no (unknown) (unknown) Temperature (units (un known) date) unknown) (unknown) (no (unknown) (unknown) Temperature (units (un known) date) unknown) (unknown) (no (unknown) (unknown) Temperature 98.0 F (unit s (unknown) date) 01/03/22 09:55 unknown) (unknown) (no (unknown) (unknown) Temperature 98.3 F (unit s (unknown) date) unknown) (unknown) (no (unknown) (unknown) Temperature 98.0 F (units (unknown) date) unknown) (unknown) (no (unknown) (unknown) There is loss of (units (unknown) date) normal lumbar unknown) lordosis.? Alignment is otherwise normal. (unknown) (no (unknown) (unknown) This is a (units (unkn own) date) 26-year-old female unknown) with a history of psoriatic arthritis and has (unknown) (no (unknown) (unknown) This is a (units (unkno wn) date) 26-year-old female unknown) with history of psoriatic arthritis who presents to (unknown) (no (unknown) (unknown) Total Bilirubin (units (unknown) date) (0.2-1.3) mg/dL unknown) (unknown) (no (unknown) (unknown) Total Bilirubin (units (unknown) date) 0.3 (0.2-1.3) unknown) mg/dL (unknown) (no (unknown) (unknown) Total Bilirubin (units (unknown) date) (0.2-1.3) mg/dL unknown) (unknown) (no (unknown) (unknown) Total Counted (units ( unknown) date) unknown) (unknown) (no (unknown) (unknown) Total Counted (units ( unknown) date) unknown) (unknown) (no (unknown) (unknown) Total Counted 100 (unit s (unknown) date) unknown) (unknown) (no (unknown) (unknown) Total Protein (units ( unknown) date) (6.3-8.2) g/dL unknown) (unknown) (no (unknown) (unknown) Total Protein (units ( unknown) date) 9.8 H* (6.3-8.2) unknown) g/dL (unknown) (no (unknown) (unknown) Total Protein (units ( unknown) date) (6.3-8.2) g/dL unknown) (unknown) (no (unknown) (unknown) Treatment Initiated (unit s (unknown) date) unknown) (unknown) (no (unknown) (unknown) Ur Chlamydia DNA (units (unknown) date) (PCR) unknown) (unknown) (no (unknown) (unknown) Ur Chlamydia DNA (units (unknown) date) (PCR) Not detected unknown) (unknown) (no (unknown) (unknown) Ur Culture (units (unk nown) date) Indicated? unknown) (unknown) (no (unknown) (unknown) Ur Culture (units (unk nown) date) Indicated? unknown) (unknown) (no (unknown) (unknown) Ur Culture (units (unk nown) date) Indicated? unknown) Specimen cultured (unknown) (no (unknown) (unknown) Ur Leukocyte (units (u nknown) date) Esterase unknown) (NEGATIVE) (unknown) (no (unknown) (unknown) Ur Leukocyte (units (u nknown) date) Esterase 1+ H unknown) (NEGATIVE) (unknown) (no (unknown) (unknown) Ur Leukocyte (units (u nknown) date) Esterase unknown) (NEGATIVE) (unknown) (no (unknown) (unknown) Ur Specific [place] (unit s (unknown) date) (1.000-1.035) unknown) (unknown) (no (unknown) (unknown) Ur Specific [place] (unit s (unknown) date) 1.010 unknown) (1.000-1.035) (unknown) (no (unknown) (unknown) Ur Specific [place] (unit s (unknown) date) (1.000-1.035) unknown) (unknown) (no (unknown) (unknown) Ur Squamous Epith (units (unknown) date) Cells (0-5/HPF) unknown) (unknown) (no (unknown) (unknown) Ur Squamous Epith (units (unknown) date) Cells 1-5 /hpf unknown) (0-5/HPF) (unknown) (no (unknown) (unknown) Ur Squamous Epith (units (unknown) date) Cells (0-5/HPF) unknown) (unknown) (no (unknown) (unknown) Urine Appearance (units (unknown) date) unknown) (unknown) (no (unknown) (unknown) Urine Appearance (units (unknown) date) unknown) (unknown) (no (unknown) (unknown) Urine Appearance (units (unknown) date) Clear unknown) (unknown) (no (unknown) (unknown) Urine Bacteria (units (unknown) date) (None) unknown) (unknown) (no (unknown) (unknown) Urine Bacteria (units (unknown) date) None seen (None) unknown) (unknown) (no (unknown) (unknown) Urine Bacteria (units (unknown) date) (None) unknown) (unknown) (no (unknown) (unknown) Urine Bilirubin (units (unknown) date) (NEGATIVE) unknown) (unknown) (no (unknown) (unknown) Urine Bilirubin (units (unknown) date) Negative (NEGATIVE) unknown) (unknown) (no (unknown) (unknown) Urine Bilirubin (units (unknown) date) (NEGATIVE) unknown) (unknown) (no (unknown) (unknown) Urine Color (units (un known) date) unknown) (unknown) (no (unknown) (unknown) Urine Color (units (un known) date) unknown) (unknown) (no (unknown) (unknown) Urine Color (units (un known) date) Yellow unknown) (unknown) (no (unknown) (unknown) Urine Glucose (UA) (units (unknown) date) (Negative) g/dL unknown) (unknown) (no (unknown) (unknown) Urine Glucose (UA) (units (unknown) date) Negative unknown) (Negative) g/dL (unknown) (no (unknown) (unknown) Urine Glucose (UA) (units (unknown) date) (Negative) g/dL unknown) (unknown) (no (unknown) (unknown) Urine Ketones (units ( unknown) date) (NEGATIVE) unknown) (unknown) (no (unknown) (unknown) Urine Ketones (units ( unknown) date) Negative (NEGATIVE) unknown) (unknown) (no (unknown) (unknown) Urine Ketones (units ( unknown) date) (NEGATIVE) unknown) (unknown) (no (unknown) (unknown) Urine Nitrate (units ( unknown) date) (Negative) unknown) (unknown) (no (unknown) (unknown) Urine Nitrate (units ( unknown) date) Negative (Negative) unknown) (unknown) (no (unknown) (unknown) Urine Nitrate (units ( unknown) date) (Negative) unknown) (unknown) (no (unknown) (unknown) Urine Occult Blood (units (unknown) date) (Negative) unknown) (unknown) (no (unknown) (unknown) Urine Occult Blood (units (unknown) date) 3+ H (Negative) unknown) (unknown) (no (unknown) (unknown) Urine Occult Blood (units (unknown) date) (Negative) unknown) (unknown) (no (unknown) (unknown) Urine Protein (units ( unknown) date) (Negative) unknown) (unknown) (no (unknown) (unknown) Urine Protein (units ( unknown) date) Negative (Negative) unknown) (unknown) (no (unknown) (unknown) Urine Protein (units ( unknown) date) (Negative) unknown) (unknown) (no (unknown) (unknown) Urine RBC (units (unkn own) date) (0-5/HPF) unknown) (unknown) (no (unknown) (unknown) Urine RBC (units (unkn own) date) 10-30/hpf H unknown) (0-5/HPF) (unknown) (no (unknown) (unknown) Urine RBC (units (unkn own) date) (0-5/HPF) unknown) (unknown) (no (unknown) (unknown) Urine Urobilinogen (units (unknown) date) (0.2) E.U./dL unknown) (unknown) (no (unknown) (unknown) Urine Urobilinogen (units (unknown) date) 0.2 (0.2) unknown) E.U./dL (unknown) (no (unknown) (unknown) Urine Urobilinogen (units (unknown) date) (0.2) E.U./dL unknown) (unknown) (no (unknown) (unknown) Urine WBC (units (unkn own) date) (0-5/HPF) unknown) (unknown) (no (unknown) (unknown) Urine WBC (units (unkn own) date) 5-10/hpf H unknown) (0-5/HPF) (unknown) (no (unknown) (unknown) Urine WBC (units (unkn own) date) (0-5/HPF) unknown) (unknown) (no (unknown) (unknown) Urine pH (units (unkno wn) date) (4.5-8.0) unknown) (unknown) (no (unknown) (unknown) Urine pH 6.5 (units (unknown) date) (4.5-8.0) unknown) (unknown) (no (unknown) (unknown) Urine pH (units (unkno wn) date) (4.5-8.0) unknown) (unknown) (no (unknown) (unknown) Visualized cord (units (unknown) date) unknown) (unknown) (no (unknown) (unknown) Vital Signs (units (un known) date) unknown) (unknown) (no (unknown) (unknown) Vital signs: (units (u nknown) date) unknown) (unknown) (no (unknown) (unknown) [Embedded Image Not (unit s (unknown) date) Available] unknown) (unknown) (no (unknown) (unknown) alcohol intake (units (unknown) date) frequency: 0-2 unknown) drinks per day (unknown) (no (unknown) (unknown) and cooperative (units (unknown) date) unknown) (unknown) (no (unknown) (unknown) and encouraged to (units (unknown) date) stay hydrated, unknown) follow up with her primary care provider for a (unknown) (no (unknown) (unknown) and ibuprofen to (units (unknown) date) your pharmacy. unknown) Thank you for trusting us with your care, (unknown) (no (unknown) (unknown) any abnormal (units (u nknown) date) finding, and your unknown) MRI from 2 days ago shows loss of normal lumbar (unknown) (no (unknown) (unknown) appointment. Let (units (unknown) date) them know you were unknown) seen in the Emergency Department and that we (unknown) (no (unknown) (unknown) arthritis medicine. (unit s (unknown) date) I have called and unknown) muscle relaxers, Voltaren topical gel, (unknown) (no (unknown) (unknown) arthritis. No (units ( unknown) date) infectious sources unknown) were found, your kidney function is great with (unknown) (no (unknown) (unknown) asked that you be (units (unknown) date) seen for follow-up. unknown) We will electronically transmit a record (unknown) (no (unknown) (unknown) chronic disease and (units (unknown) date) chronic unknown) immunosuppression. UA shows leukocyte esterase, red (unknown) (no (unknown) (unknown) co-worker thought (units (unknown) date) that she was pale unknown) and she felt lightheaded so she drank some (unknown) (no (unknown) (unknown) complains of (units (u nknown) date) menstrual cramping unknown) although she has the IUD that was implanted in (unknown) (no (unknown) (unknown) compression (units (un known) date) unknown) (unknown) (no (unknown) (unknown) concerning (units (unk nown) date) symptoms, such as unknown) [fever greater than 101F, chills, worsening pain, (unknown) (no (unknown) (unknown) considered (units (unk nown) date) unknown) (unknown) (no (unknown) (unknown) count of 800, no (units (unknown) date) leukocytosis, unknown) hemoglobin of 8.1 and hematocrit of 25.2 without (unknown) (no (unknown) (unknown) curvature (units (unkn own) date) suggesting muscle unknown) spasm, it did not have any significant canal (unknown) (no (unknown) (unknown) demonstrates normal (unit s (unknown) date) signal and size.? unknown) (unknown) (no (unknown) (unknown) denies any (units (unk nown) date) incontinence. unknown) (unknown) (no (unknown) (unknown) emergency (units (unkn own) date) department and at unknown) the walk-in clinic for this. She states she had an (unknown) (no (unknown) (unknown) emergency (units (unkno wn) date) department. Nausea unknown) vomiting, shortness of breath, fever or chills, no (unknown) (no (unknown) (unknown) establish care with [facility]unit [facility] ([facility]) [facility]. (unknown) (no (unknown) (unknown) film.? (units (unkno wn) date) unknown) (unknown) (no (unknown) (unknown) fracture, (units (unkn own) date) intra-abdominal unknown) pathology chronic neuropathic pain and other (unknown) (no (unknown) (unknown) fractures.? (units (un known) date) unknown) (unknown) (no (unknown) (unknown) groomed (units (unkno wn) date) unknown) (unknown) (no (unknown) (unknown) hand (units (unkno wn) date) unknown) (unknown) (no (unknown) (unknown) has been reviewed. (units (unknown) date) I agree with unknown) assessment and plan. (unknown) (no (unknown) (unknown) have improved her (units (unknown) date) pain but now her unknown) pain is worse than it has ever been. She (unknown) (no (unknown) (unknown) her psoriatic (units ( unknown) date) arthritis but she unknown) moved here from [place] a few months ago and has (unknown) (no (unknown) (unknown) ibuprofen, uses (units (unknown) date) lidocaine patches, unknown) and states that tramadol made her feel weird (unknown) (no (unknown) (unknown) including; Epidural (unit s (unknown) date) abscess, cauda unknown) equina, mass occupying lesion, lumbar (unknown) (no (unknown) (unknown) left side Qualified (unit s (unknown) date) Code(s): M54.42 - unknown) Lumbago with sciatica, left side (unknown) (no (unknown) (unknown) may be performed.? (units (unknown) date) unknown) (unknown) (no (unknown) (unknown) month and has been (units (unknown) date) off of this for a unknown) few months. She states that she is from (unknown) (no (unknown) (unknown) neural impingement. (units (unknown) date) This is most likely unknown) a flare of her psoriatic arthritis, she (unknown) (no (unknown) (unknown) not had this (units (u nknown) date) medication for last unknown) couple of months. She has completed 2 or 3 (unknown) (no (unknown) (unknown) of today's note if (units (unknown) date) your PCP is in our unknown) system (unknown) (no (unknown) (unknown) ongoing low back (units (unknown) date) pain with sciatica unknown) down her left side, she has been seen in the (unknown) (no (unknown) (unknown) persistent vomiting (unit s (unknown) date) or other bothersome unknown) symptoms] (unknown) (no (unknown) (unknown) please follow-up (units (unknown) date) with your primary unknown) care provider as directed. If you develop (unknown) (no (unknown) (unknown) prescription of (units (unknown) date) Flexeril for muscle unknown) spasms, cephalexin for UTI, diclofenac gel (unknown) (no (unknown) (unknown) presented to the (units (unknown) date) emergency department unknown) and walk-in clinic for lumbar pain over (unknown) (no (unknown) (unknown) priors to compare (units (unknown) date) to, no signs of unknown) bleeding. This is most likely anemia of (unknown) (no (unknown) (unknown) referral to (units (un known) date) Rheumatology for her unknown) medication. Patient has an elevated platelet (unknown) (no (unknown) (unknown) referral to (units (un known) date) Rheumatology. unknown) Multiple etiologies of back pain considered (unknown) (no (unknown) (unknown) relaxers which have (unit s (unknown) date) also been helpful, unknown) does not use naproxen but takes (unknown) (no (unknown) (unknown) sepsis state and (units (unknown) date) within one hour for unknown) both sepsis and septic shock. (unknown) (no (unknown) (unknown) set up primary care (unit s (unknown) date) yet at this were no unknown) mesh clinic where she will be going. (unknown) (no (unknown) (unknown) she did not like it. (unit s (unknown) date) Her MRI from 2 days unknown) ago of her lumbar spine shows lordosis (unknown) (no (unknown) (unknown) significant, (units (u nknown) date) unknown) (unknown) (no (unknown) (unknown) soon. (units (unkno wn) date) unknown) (unknown) (no (unknown) (unknown) spin echo (units (unkn own) date) unknown) (unknown) (no (unknown) (unknown) stenosis or nerve (units (unknown) date) impingement. No unknown) mesh clinic for an appointment with a primary (unknown) (no (unknown) (unknown) steroid bursts for (units (unknown) date) her back pain which unknown) have been helpful, has been using muscle (unknown) (no (unknown) (unknown) steroids, muscle (units (unknown) date) relaxers, unknown) anti-inflammatories. Patient states that she used to (unknown) (no (unknown) (unknown) take since he a an (units (unknown) date) injectable medicine unknown) for her psoriatic arthritis once per (unknown) (no (unknown) (unknown) tenderness with (units (unknown) date) exam, without unknown) guarding or rebound. No CVA tenderness, (unknown) (no (unknown) (unknown) the last 2 months (units (unknown) date) which has not been unknown) getting much better after 2 courses of (unknown) (no (unknown) (unknown) thick white (units (un known) date) discharge, or unknown) lymphadenopathy. (unknown) (no (unknown) (unknown) through the lumbar (units (unknown) date) spine.? In cases unknown) with scoliosis, additional coronal T2 fast (unknown) (no (unknown) (unknown) vomiting, please (units (unknown) date) return to the unknown) emergency department. I hope you feel better (unknown) (no (unknown) (unknown) water which she (units (unknown) date) states made her feel unknown) better. She states that she has had (unknown) (no (unknown) (unknown) weakness (units (unkno wn) date) unknown) (unknown) (no (unknown) (unknown) weakness, (units (unkn own) date) incontinence, or any unknown) new abnormal changes like a high fever and (unknown) (no (unknown) (unknown) weakness. She (units (unknown) date) states that she has unknown) had 2 courses of steroids this month which (unknown) (no (unknown) (unknown) were no mesh (units (u nknown) date) Clinic, states she unknown) called today but they told her to go to the (unknown) (no (unknown) (unknown) wheezing, stridor, (units (unknown) date) or rales. No unknown) retractions or tachypnea. (unknown) (no (unknown) (unknown) with unknown (units (un known) date) etiology. Your unknown) workup today has ribs a low blood count, likely due Result panel 16 (unknown) (no date) (unknown) (unknown) No growth. (units (un known) unknown) Result panel 17 (unknown) (no date) (unknown) (unknown) (no value) (units (un known) unknown) (unknown) (no date) (unknown) (unknown) NO GROWTH (units (unk nown) AFTER 24 unknown) HOURS Result panel 18 (unknown) (no date) (unknown) (unknown) Negative (units (unkn own) unknown) Result panel 19 (unknown) (no date) (unknown) (unknown) > 60 mL/min (unkn own) (unknown) (no date) (unknown) (unknown) 0.3 mg/dL (unkn own) (unknown) (no date) (unknown) (unknown) 0.47 mg/dL (unkn own) (unknown) (no date) (unknown) (unknown) 0.5 (units (unkn own) unknown) (unknown) (no date) (unknown) (unknown) 1+ (units (unkn own) unknown) (unknown) (no date) (unknown) (unknown) 1.0 % (unkn own) (unknown) (no date) (unknown) (unknown) 100 (units (unkn own) unknown) (unknown) (no date) (unknown) (unknown) 102 mmol/L (unkn own) (unknown) (no date) (unknown) (unknown) 109 U/L (unkn own) (unknown) (no date) (unknown) (unknown) 118 mg/dL (unkn own) (unknown) (no date) (unknown) (unknown) 138 mmol/L (unkn own) (unknown) (no date) (unknown) (unknown) 14.9 (units (unkn own) unknown) (unknown) (no date) (unknown) (unknown) 18.9 % (unkn own) (unknown) (no date) (unknown) (unknown) 19 IU/L (unkn own) (unknown) (no date) (unknown) (unknown) 21 IU/L (unkn own) (unknown) (no date) (unknown) (unknown) 22.7 PG (unkn own) (unknown) (no date) (unknown) (unknown) 25.2 % (unkn own) (unknown) (no date) (unknown) (unknown) 29 mmol/L (unkn own) (unknown) (no date) (unknown) (unknown) 3.0 % (unkn own) (unknown) (no date) (unknown) (unknown) 3.4 g/dL (unkn own) (unknown) (no date) (unknown) (unknown) 3.55 X10 6/uL (unkn own) (unknown) (no date) (unknown) (unknown) 3.9 mmol/L (unkn own) (unknown) (no date) (unknown) (unknown) 32.0 % (unkn own) (unknown) (no date) (unknown) (unknown) 35.0 % (unkn own) (unknown) (no date) (unknown) (unknown) 3834 /uL (unkn own) (unknown) (no date) (unknown) (unknown) 54.0 % (unkn own) (unknown) (no date) (unknown) (unknown) 6.4 g/dL (unkn own) (unknown) (no date) (unknown) (unknown) 7 mg/dL (unkn own) (unknown) (no date) (unknown) (unknown) 7.0 % (unkn own) (unknown) (no date) (unknown) (unknown) 7.1 X10 3/uL (unkn own) (unknown) (no date) (unknown) (unknown) 71.1 fL (unkn own) (unknown) (no date) (unknown) (unknown) 8.1 g/dL (unkn own) (unknown) (no date) (unknown) (unknown) 8.6 mg/dL (unkn own) (unknown) (no date) (unknown) (unknown) 800 X10 3/uL (unkn own) (unknown) (no date) (unknown) (unknown) 9.8 g/dL (unkn own) (unknown) (no date) (unknown) (unknown) Increased on (units ( unknown) smear unknown) (unknown) (no date) (unknown) (unknown) See Below (units (unk nown) unknown) Result panel 20 (unknown) (no date) (unknown) (unknown) 1.2 mmol/L (unkn own) Result panel 21 (unknown) (no date) (unknown) (unknown) 0.14 ng/mL (unkn own) (unknown) (no date) (unknown) (unknown) 0.2 E.U./dL (unkn own) (unknown) (no date) (unknown) (unknown) 1+ (units (unkn own) unknown) (unknown) (no date) (unknown) (unknown) 1-5 /HPF (units (unkn own) unknown) (unknown) (no date) (unknown) (unknown) 1.010 (units (unkn own) unknown) (unknown) (no date) (unknown) (unknown) 10-30/HPF (units (unk nown) unknown) (unknown) (no date) (unknown) (unknown) 3+ (units (unkn own) unknown) (unknown) (no date) (unknown) (unknown) 5-10/HPF (units (unkn own) unknown) (unknown) (no date) (unknown) (unknown) 6.5 (units (unkn own) unknown) (unknown) (no date) (unknown) (unknown) CLEAR (units (unkn own) unknown) (unknown) (no date) (unknown) (unknown) NEGATIVE (units (unkn own) unknown) (unknown) (no date) (unknown) (unknown) NEGATIVE g/dL (unkn own) (unknown) (no date) (unknown) (unknown) None Seen (units (unk nown) unknown) (unknown) (no date) (unknown) (unknown) Specimen (units (unkn own) Cultured unknown) (unknown) (no date) (unknown) (unknown) YELLOW (units (unkn own) unknown) Result panel 22 (unknown) (no date) (unknown) (unknown) (no value) (units (un known) unknown) (unknown) (no date) (unknown) (unknown) None seen (units (unk nown) unknown) (unknown) (no date) (unknown) (unknown) Occasional WBC (units (unknown) seen unknown) Result panel 23 (unknown) (no date) (unknown) (unknown) NOT DETECTED (units ( unknown) unknown) Result panel 24 (unknown) (no date) (unknown) (unknown) (no value) (units (un known) unknown) (unknown) (no date) (unknown) (unknown) Mixed gram + (units ( unknown) vijay. Deemed unknown) unsuitable for further studies. Result panel 25 (unknown) (no date) (unknown) (unknown) NO GROWTH (units (unk nown) AFTER 48 unknown) HOURS (unknown) (no date) (unknown) (unknown) (no value) (units (un known) unknown) Result panel 26 (unknown) (no date) (unknown) (unknown) (no value) (units (un known) unknown) (unknown) (no date) (unknown) (unknown) NO GROWTH (units (unk nown) AFTER 72 unknown) HOURS Result panel 27 (unknown) (no date) (unknown) (unknown) (no value) (units (un known) unknown) (unknown) (no date) (unknown) (unknown) NO GROWTH (units (unk nown) AFTER 4 DAYS unknown) Result panel 28 (unknown) (no date) (unknown) (unknown) (no value) (units (un known) unknown) (unknown) (no date) (unknown) (unknown) NO GROWTH (units (unk nown) AFTER 5 DAYS unknown) Social History date description facility (no date) Never smoked tobacco ([facility] Vital Signs date measurement value units +0000 BMI BMI 18.9 kg/m2 +0000 BP_diastolic BP_diastolic 59 mm[H g] +0000 BP_systolic BP_systolic 114 mm[Hg] +0000 heart_rate heart_rate 80 /min +0000 height_metric height_metric 165.1 cm +0000 height_standard height_standard 65 in +0000 respiration_rate respiration_rate 20 /min +0000 temperature_metric temperature_metric 36.83 C +0000 temperature_standard temperature_standard 9 8.3 F +0000 weight_metric weight_metric 23.46 kg +0000 weight_standard weight_standard 51.71 lb
[2022-03-22 15:20] LABS: SLIDE REVIEW? Indicated
[2022-03-22 15:34] LABS: HCG,QUALITATIVE BLOOD NEGATIVE
--- NOTE | 2022-03-22 15:37 | ED Physician Documentation ---
History of Present Illness - Stated complaint Stated Complaint: DIZZY,NAUSEA - Chief complaint Chief Complaint: General - History obtained from History obtained from: Patient - Additonal information Additional information: 26-year-old woman with history of juvenile rheumatoid arthritis and possibly psoriatic arthritis was referred in today by her new roll examiner, Dr. Wallis, who did call me prior to arrival. She had outpatient labs done today and was noted to be severely anemic with a hemoglobin of 6.6. She denies heavy menses. She has been told she has been anemic in the past but never required a transfusion or other specific therapy. She feels weak and dizzy and slow and fatigued. Review of Systems Ten Systems: 10 systems reviewed and negative Constitutional: reports: Fatigue. denies: Fever, Chills Cardiac: denies: Chest pain / pressure, Palpitations Respiratory: denies: Dyspnea, Cough PD PAST MEDICAL HISTORY - Allergies Allergies/Adverse Reactions: Allergies Allergy/AdvReac Type Severity Reaction Status Date / Time naproxen AdvReac Unknown Verified 03/22/22 14:52 PD ED PE NORMAL - Vitals Vital signs reviewed: Yes - General General: Alert and oriented X 3, No acute distress - HEENT HEENT: Ears normal, Pharynx benign - Neck Neck: Supple, no meningeal sign, No bony TTP - Cardiac Cardiac: RRR, No murmur - Respiratory Respiratory: No respiratory distress, Clear bilaterally - Abdomen Abdomen: Non tender - Back Back: No CVA TTP, No spinal TTP - Derm Derm: Normal color, Warm and dry - Extremities Extremities: No edema, No calf tenderness / cord - Neuro Neuro: Alert and oriented X 3, Normal speech Results - Vitals Vitals: Vital Signs - 24 hr 03/22/22 03/22/22 14:50 14:51 Temperature 36.7 C 36.7 C Heart Rate 111 H 111 H Respiratory 16 16 Rate Blood Pressure 119/90 H 119/90 H O2 Saturation 100 100 Oxygen O2 Source Room air - Labs Labs: Laboratory Tests 03/22/22 03/22/22 03/22/22 13:18 13:18 13:18 WBC RBC Hgb Hct MCV MCH MCHC RDW Plt Count MPV Neut # (Auto) Lymph # (Auto) [place] # (Auto) Eos # (Auto) Baso # (Auto) Absolute Nucleated RBC Band Neuts % (Manual) Abnorm Lymph % (Manual) Nucleated RBC % Neutrophils # (Manual) Lymphocytes # (Manual) Monocytes # (Manual) Eosinophils # (Manual) Basophils # (Manual) Differential Comment Manual Slide Review WBC Morphology Platelet Estimate Platelet Morphology RBC Morph Micro Appear Iron 11 L TIBC 214 L % Saturation 5 L Transferrin 153 L Serum HCG, Qual NEGATIVE Blood Type Blood Type Recheck O POSITIVE Antibody Screen Crossmatch IS Only 03/22/22 03/22/22 14:58 14:58 WBC 9.0 RBC 3.25 L Hgb 7.0 L* Hct 23.8 L MCV 73.2 L MCH 21.5 L MCHC 29.4 L RDW 18.3 H Plt Count 779 H MPV 7.6 L Neut # (Auto) 6.1 Lymph # (Auto) 2.1 [place] # (Auto) 0.7 Eos # (Auto) 0.1 Baso # (Auto) 0.0 Absolute Nucleated RBC 0.00 Band Neuts % (Manual) Not Reportable Abnorm Lymph % (Manual) Not Reportable Nucleated RBC % 0.0 Neutrophils # (Manual) Not Reportable Lymphocytes # (Manual) Not Reportable Monocytes # (Manual) Not Reportable Eosinophils # (Manual) Not Reportable Basophils # (Manual) Not Reportable Differential Comment MANUAL=AUTO DIFF Manual Slide Review Indicated WBC Morphology NORMAL APPEARANCE Platelet Estimate INCREASED (>450,000) Platelet Morphology NORMAL APPEARANCE RBC Morph Micro Appear 1+ HYPOCHROMASIA Iron TIBC % Saturation Transferrin Serum HCG, Qual Blood Type O POSITIVE Blood Type Recheck Antibody Screen NEGATIVE Crossmatch IS Only See Detail PD MEDICAL DECISION MAKING - ED course ED course: 26-year-old woman referred in by her roll examiner for transfusion for anemia, given the thrombocytosis and other findings this is probably anemia of chronic disease. She is not currently on any specific therapy for her autoimmune issues and it is reassuring that she has established with a roll examiner for this, but today we will transfer her 1 unit of packed red blood cells. Departure - Departure Clinical Impression: Anemia Qualifiers: Anemia type: iron deficiency Iron deficiency anemia type: unspecified iron deficiency Qualified Code(s): D50.9 - Iron deficiency anemia, unspecified Condition: Good Record reviewed to determine appropriate education?: Yes Instructions: ED Anemia Type Not Specified Comments: You are seen today for hemoglobin of 7 that was symptomatic. You were given 1 unit of blood. Initially I thought probably this was related to anemia of chronic disease but we also note that you are iron deficient. Your iron level was 7 with a iron binding capacity of 214 and a percent saturation of 5. These all suggest you are low on iron. You can take an [id number] iron supplement but you should also discuss this with your primary care physician. Follow-up with your primary care physician, next available appointment. Return for new or worsening symptoms.
[2022-03-22 15:46] LABS: DIFFERENTIAL COMMENT MANUAL=AUTO DIFF; PLATELET ESTIMATE, MANUAL INCREASED (>450,000) (NORMAL); PLATELET MORPHOLOGY NORMAL APPEARANCE (NORMAL); WBC MORPHOLOGY (MULTIPLE) NORMAL APPEARANCE (NORMAL)
[2022-03-22 16:00] LABS: % IRON SATURATION 5 % (20-50); IRON 11 ug/dL (28-170); TOTAL IRON BINDING CAPACITY 214 ug/dL (250-450); TRANSFERRIN 153 mg/dL (192-382)
[2022-03-22 20:20] VITALS: BP 118/69
== END 2022-03-22 20:20 | disposition home or self-care (01) ==
LOC: ED 14:44
DX: D50.9 Iron deficiency anemia, unspecified (principal)
CPT/HCPCS: 36415; 36430; 83540; 84466; 84703; 85025; 86850; 86900; 86901; 86920; 99283; 99285; P9016; 80048

== ENCOUNTER 2022-03-27 16:49 | Outpatient (CLI) | payer OTHER ==
--- NOTE | 2022-03-28 16:27 | XRAY Report ---
PROCEDURE: Elbow 3 View BILAT INDICATIONS: HIST OF ARTHRITIS TECHNIQUE: 3 views of the elbow were acquired. COMPARISON: None FINDINGS: Bones: No fractures or dislocations. No suspicious bony lesions. No appreciable joint space narrow ing or erosions. Soft tissues: No elbow joint effusion. No suspicious soft tissue calcifications. IMPRESSION: Unremarkable exam. Reviewed by: Magdalena Mcneil MD on 03/28/2022 4:26 PM PDT Approved by: Magdalena Mcneil MD on 03/28/2022 4:26 PM PDT Station ID: [id number]
--- NOTE | 2022-03-28 16:28 | XRAY Report ---
PROCEDURE: Thoracic Spine 3 View INDICATIONS: HISTORY OF ARTHRITIS TECHNIQUE: 3 views of the thoracic spine were acquired. COMPARISON: None. FINDINGS: Bones: No fractures or dislocations. No suspicious bony lesions. 12 pairs of ribs are noted, and a ppear intact where visualized. No erosions or appreciable arthritic change. Soft tissues: No paravertebral stripe thickening. IMPRESSION: Unremarkable exam. Reviewed by: Magdalena Mcneil MD on 03/28/2022 4:27 PM PDT Approved by: Magdalena Mcneil MD on 03/28/2022 4:27 PM PDT Station ID: [id number]
--- NOTE | 2022-03-28 16:28 | XRAY Report ---
PROCEDURE: Cervical Spine Complete INDICATIONS: HISTORY OF ARTHRITIS TECHNIQUE: 4 views of the cervical spine acquired. COMPARISON: None. FINDINGS: Bones: No fractures or dislocations to the C7-T1 level. Oblique images demonstrate no bony foramina l stenoses. Cervical straightening is present. Minimal scattered areas of disc space narrowing. No e rosions. Soft tissues: No prevertebral soft tissue swelling. IMPRESSION: Mild cervical straightening with minimal appearance of disc space narrowing. No arthriti c erosions. Reviewed by: Magdalena Mcneil MD on 03/28/2022 4:27 PM PDT Approved by: Magdalena Mcneil MD on 03/28/2022 4:27 PM PDT Station ID: [id number]
--- NOTE | 2022-03-28 16:29 | XRAY Report ---
PROCEDURE: Shoulder 3 View BILAT INDICATIONS: HIST OF ARTHRITIS TECHNIQUE: 3 views of the shoulder were acquired. COMPARISON: None. FINDINGS: Bones: No fractures or dislocations. No suspicious bony lesions. Visualized ribs appear intact. N o erosions or joint space narrowing. Soft tissues: No suspicious soft tissue calcifications. IMPRESSION: Unremarkable exam. Reviewed by: Magdalena Mcneil MD on 03/28/2022 4:27 PM PDT Approved by: Magdalena Mcneil MD on 03/28/2022 4:27 PM PDT Station ID: [id number]
--- NOTE | 2022-03-28 16:29 | XRAY Report ---
PROCEDURE: Ankle 3 View BILAT INDICATIONS: HIST OF ARTHRITIS TECHNIQUE: 3 views of the ankle were acquired. COMPARISON: None FINDINGS: Bones: No fractures or dislocations. Ankle mortise is normally aligned. No suspicious bony lesions . There is slight appearance of osteopenia. There is mild narrowing at the tibiotalar joint space. N o erosions. Soft tissues: No tibiotalar joint effusion. Achilles tendon appears normal. IMPRESSION: Mild tibiotalar joint space narrowing bilaterally. Reviewed by: Magdalena Mcneil MD on 03/28/2022 4:28 PM PDT Approved by: Magdalena Mcenil MD on 03/28/2022 4:28 PM PDT Station ID: [id number]
--- NOTE | 2022-03-28 16:30 | XRAY Report ---
PROCEDURE: Hips 2V BILAT INDICATIONS: HIST OF ARTHRITIS TECHNIQUE: 2 views of the hip were acquired. COMPARISON: None FINDINGS: Bones: No fractures or dislocations. No suspicious bony lesions. The visualized pelvic ring appear s intact. No particular osteophytes or erosions. Minimal bilateral hip joint space narrowing. Soft tissues: No suspicious soft tissue calcifications or masses. IUD is projecting over the pelvis . IMPRESSION: Minimal bilateral hip joint space narrowing without erosions or periarticular osteophytes. Reviewed by: Magdalena Mcneil MD on 03/28/2022 4:29 PM PDT Approved by: Magdalena Mcneil MD on 03/28/2022 4:29 PM PDT Station ID: [id number]
--- NOTE | 2022-03-28 16:30 | XRAY Report ---
PROCEDURE: Knee 4 View BILAT INDICATIONS: HIST OF ARTHRITIS TECHNIQUE: 4 views of the bilateral knee(s) were acquired. COMPARISON: None. FINDINGS: Bones: No fractures or dislocations. No suspicious bony lesions. No erosions or particular osteoph ytes. Mild bilateral medial compartment narrowing. Soft tissues: Mild bilateral joint effusion. No suspicious soft tissue calcifications. IMPRESSION: Mild bilateral medial compartment narrowing without erosions or particular osteophytes. Reviewed by: Magdalena Mcneil MD on 03/28/2022 4:29 PM PDT Approved by: Magdalena Mcneil MD on 03/28/2022 4:29 PM PDT Station ID: [id number]
--- NOTE | 2022-03-28 16:31 | XRAY Report ---
PROCEDURE: Hand 3 View BILAT INDICATIONS: HIST OF ARTHRITIS TECHNIQUE: 3 views of the hand(s) acquired. COMPARISON: None FINDINGS: Bones: No fractures or dislocations. No suspicious bony lesions. No appreciable joint space narrow ing. No particular lucencies. No particular osteophytes. Soft tissues: No suspicious soft tissue calcifications. IMPRESSION: No visualized arthritic change. Reviewed by: Magdalena Mcneil MD on 03/28/2022 4:30 PM PDT Approved by: Magdalena Mcneil MD on 03/28/2022 4:30 PM PDT Station ID: [id number]
--- NOTE | 2022-03-28 16:31 | XRAY Report ---
PROCEDURE: Lumbar Spine Complete INDICATIONS: HISTORY OF ARTHRITIS TECHNIQUE: 4 views of the lumbar spine were acquired. COMPARISON: None. FINDINGS: Bones: 5 [id number] vertebrae are present. There is normal bony alignment. No vertebral body compression fractures. No suspicious bony lesions. Disc spaces are well-maintained. No foraminal na rrowing. No particular osteophytes or erosions. Soft tissues: Overlying bowel gas pattern is normal. No suspicious soft tissue calcifications. IMPRESSION: No visualized arthritic change. Reviewed by: Magdalena Mcneil MD on 03/28/2022 4:30 PM PDT Approved by: Magdalena Mcneil MD on 03/28/2022 4:30 PM PDT Station ID: [id number]
--- NOTE | 2022-03-28 16:32 | XRAY Report ---
PROCEDURE: SI Joints INDICATIONS: HISTORY OF ARTHRITIS TECHNIQUE: 3 views of the sacroiliac joints were acquired. COMPARISON: None FINDINGS: Bones: No bony erosions or ankylosis. No suspicious bony lesions. No fractures. Soft tissues: Overlying bowel gas pattern is normal. No suspicious soft tissue densities. IMPRESSION: SI joints appear patent. Reviewed by: Magdalena Mcneil MD on 03/28/2022 4:31 PM PDT Approved by: Magdalena Mcneil MD on 03/28/2022 4:31 PM PDT Station ID: [id number]
== END 2022-03-27 16:50 | disposition home or self-care (01) ==
LOC: DI 16:49
PROVIDERS: ATTEND Internal Medicine Rheumatology
DX: Z87.39 Personal history of other diseases of the musculoskeletal system and connective tissue (principal); R63.4 Abnormal weight loss; Z87.2 Personal history of diseases of the skin and subcutaneous tissue; Z79.899 Other long term (current) drug therapy; R35.1 Nocturia; M47.812 Spondylosis without myelopathy or radiculopathy, cervical region; M19.072 Primary osteoarthritis, left ankle and foot; M19.071 Primary osteoarthritis, right ankle and foot; M17.0 Bilateral primary osteoarthritis of knee; M16.0 Bilateral primary osteoarthritis of hip

== ENCOUNTER 2023-10-19 19:46 | Emergency (ER) | payer MEDICAID, OTHER ==
--- NOTE | 2023-10-19 20:25 | ED Physician Documentation ---
History of Present Illness - Stated complaint Stated Complaint: FEVER/DIZZY/FATIGUE - Chief complaint Chief Complaint: General - History obtained from History obtained from: Patient - Additonal information Additional information: 28-year-old woman with history of terrible psoriatic arthritis on leflunomide, methotrexate, Stelara. Was on steroids until a few weeks ago and was weaned off. Over the last 3 days she has had fevers, chills, body aches, and more severe joint pain than usual. She feels like this is a flare of her psoriatic arthritis. She has had concentrated urine. She is amenorrheic so there is no chance of . She tried ibuprofen and a leftover pain medication from a recent kidney stone that was ineffective. No sick contacts. She is here with her aunt. PD PAST MEDICAL HISTORY - Past Medical History Past Medical History: Yes Endocrine/Autoimmune: Other Musculoskeletal: Rheumatoid arthritis Derm: Psoriasis - Past Surgical History Past Surgical History: Yes Ortho: Hip replacement - Present Medications Home Medications: Ambulatory Orders Medication Instructions Recorded Confirmed dexAMETHasone [Decadron] 4 mg PO BIDWM #10 tablet 10/19/23 oxyCODONE [Roxicodone] 5 mg PO Q4-6H PRN #15 tablet 10/19/23 - Allergies Allergies/Adverse Reactions: Allergies Allergy/AdvReac Type Severity Reaction Status Date / Time naproxen AdvReac Unknown Verified 10/19/23 20:10 - Social History Does the pt smoke?: No Smoking Status: Never smoker Does the pt drink ETOH?: No Does the pt have substance abuse?: No - Immunizations Immunizations are current?: Yes PD ED PE NORMAL - Vitals Vital signs reviewed: Yes (Tachycardic) - General General: Alert and oriented X 3, No acute distress - HEENT HEENT: PERRL, EOMI - Neck Neck: Supple, no meningeal sign, No bony TTP - Cardiac Cardiac: No murmur, Other (Tachycardic but regular without murmur) - Respiratory Respiratory: No respiratory distress, Clear bilaterally - Abdomen Abdomen: Non tender - Back Back: No CVA TTP, No spinal TTP - Derm Derm: Normal color, Warm and dry - Extremities Extremities: Other (All of her large joints are very swollen with limited range of motion but no warmth or redness.) - Neuro Neuro: Alert and oriented X 3, Normal speech Results - Vitals Vitals: Vital Signs - 24 hr 10/19/23 10/19/23 10/19/23 20:03 21:00 22:00 Temperature 37.5 C Heart Rate 122 H 109 H 100 Respiratory 18 15 16 Rate Blood Pressure 100/88 H 145/75 H 142/87 H O2 Saturation 100 97 95 10/19/23 23:00 Temperature Heart Rate 95 Respiratory 15 Rate Blood Pressure 130/74 O2 Saturation 97 Oxygen O2 Source Room air - Labs Labs: Laboratory Tests 10/19/23 10/19/23 10/19/23 20:43 20:43 20:50 WBC 9.4 RBC 3.69 L Hgb 7.0 L* Hct 25.8 L MCV 69.9 L MCH 19.0 L MCHC 27.1 L RDW 19.9 H Plt Count 694 H MPV 8.1 Neut # (Auto) 6.0 Lymph # (Auto) 1.9 [place] # (Auto) 1.3 H Eos # (Auto) 0.2 Baso # (Auto) 0.1 Absolute Nucleated RBC 0.00 Nucleated RBC % 0.0 Sodium Potassium Chloride Carbon Dioxide Anion Gap BUN Creatinine Estimated GFR (MDRD) Glucose Lactic Acid 1.3 Calcium Total Bilirubin AST ALT Alkaline Phosphatase Total Protein Albumin Globulin Albumin/Globulin Ratio Urine Color Urine Clarity Urine pH Ur Specific [place] Urine Protein Urine Glucose (UA) Urine Ketones Urine Occult Blood Urine Nitrite Urine Bilirubin Urine Urobilinogen Ur Leukocyte Esterase Urine RBC Urine WBC Ur Squamous Epith Cells Urine Bacteria Urine Yeast Ur Microscopic Review Urine Culture Comments Nasal Adenovirus (PCR) NOT DETECTED Nasal B. parapertussis DNA (PCR) NOT DETECTED Nasal Coronavir 229E PCR NOT DETECTED Nasal Coronavir HKU1 PCR NOT DETECTED Nasal Coronavir NL63 PCR NOT DETECTED Nasal Coronavir OC43 PCR NOT DETECTED Nasal Enterovir/Rhinovir PCR NOT DETECTED Nasal Influenza B PCR NOT DETECTED Nasal Influenza A PCR NOT DETECTED Nasal Parainfluen 1 PCR NOT DETECTED Nasal Parainfluen 2 PCR NOT DETECTED Nasal Parainfluen 3 PCR NOT DETECTED Nasal Parainfluen 4 PCR NOT DETECTED Nasal RSV (PCR) NOT DETECTED Nasal B.pertussis DNA PCR NOT DETECTED Nasal C.pneumoniae (PCR) NOT DETECTED Paulo Human Metapneumo PCR NOT DETECTED Nasal M.pneumoniae (PCR) NOT DETECTED Nasal SARS-CoV-2 (PCR) NOT DETECTED 10/19/23 10/19/23 21:54 22:59 WBC RBC Hgb Hct MCV MCH MCHC RDW Plt Count MPV Neut # (Auto) Lymph # (Auto) [place] # (Auto) Eos # (Auto) Baso # (Auto) Absolute Nucleated RBC Nucleated RBC % Sodium 134 L Potassium 3.0 L Chloride 99 L Carbon Dioxide 26 Anion Gap 9.0 BUN 7 Creatinine 0.4 L Estimated GFR (MDRD) 191 Glucose 115 H Lactic Acid Calcium 8.2 L Total Bilirubin 0.5 AST 7 L ALT 5 L Alkaline Phosphatase 70 Total Protein 6.9 Albumin 2.8 L Globulin 4.1 Albumin/Globulin Ratio 0.7 L Urine Color YELLOW Urine Clarity CLEAR Urine pH 6.0 Ur Specific [place] <=1.005 Urine Protein NEGATIVE Urine Glucose (UA) NEGATIVE Urine Ketones TRACE Urine Occult Blood NEGATIVE Urine Nitrite NEGATIVE Urine Bilirubin NEGATIVE Urine Urobilinogen 4 H Ur Leukocyte Esterase TRACE H Urine RBC None Seen Urine WBC 4-5 Ur Squamous Epith Cells MANY Squamous H Urine Bacteria Many H Urine Yeast PRESENT Ur Microscopic Review INDICATED Urine Culture Comments NOT INDICATED Nasal Adenovirus (PCR) Nasal B. parapertussis DNA (PCR) Nasal Coronavir 229E PCR Nasal Coronavir HKU1 PCR Nasal Coronavir NL63 PCR Nasal Coronavir OC43 PCR Nasal Enterovir/Rhinovir PCR Nasal Influenza B PCR Nasal Influenza A PCR Nasal Parainfluen 1 PCR Nasal Parainfluen 2 PCR Nasal Parainfluen 3 PCR Nasal Parainfluen 4 PCR Nasal RSV (PCR) Nasal B.pertussis DNA PCR Nasal C.pneumoniae (PCR) Paulo Human Metapneumo PCR Nasal M.pneumoniae (PCR) Nasal SARS-CoV-2 (PCR) PD Medical Decision Making - ED course ED course: 28-year-old woman with severe autoimmune disease presents with a flare of same with fever, tachycardia, and significant pain. 1 would also wonder about a viral syndrome given her symptomatology. She received IV fluids, milligram of hydromorphone, 50 mg ketorolac. After which she was starting to get some relief. Initial workup demonstrated a CBC with no leukocytosis. She did have a hemoglobin of 7, but this looks like it is her standard range based on prior values so I do not think transfusion is in order. Her lactate was normal/negative at 1.3. She wanted the hydromorphone repeated and but was looking more comfortable, also requested hydroxyzine for itching. CMP did show hypokalemia and she was given an oral dose of potassium for this. [employer] respiratory panel was negative. She was feeling better after the above interventions. Departure - Departure Disposition: 01 Home, Self Care Clinical Impression: Psoriatic arthritis, Anemia of chronic disease, Generalized muscle ache Condition: Stable Record reviewed to determine appropriate education?: Yes Prescriptions: dexAMETHasone [Decadron] 4 mg PO BIDWM #10 tablet oxyCODONE [Roxicodone] 5 mg PO Q4-6H PRN #15 tablet PRN Reason: Pain Comments: You were seen tonight for an apparent flare of your psoriatic arthritis/autoimmune disease. You are pretty anemic but stable from prior values. There is no evidence of infectious process with normal white count and negative flu and COVID testing. I sent a prescription electronically to [facility] for the steroid dexamethasone and some oxycodone pain medication. Follow-up with your events manager next available appointment. Return for new or worsen ing symptoms. I am prescribing a short course of narcotic pain medication for you. These are potentially dangerous and addictive medications that should be used carefully. These medications may constipate you. Take an [id number] stool softener (docusate) twice daily with plenty of water while taking these medications. If you go 24 hours without a bowel movement, take [id number] miralax, per package instructions. Do not drink or drive while taking these medications. If you received narcotic or sedating medications while in the emergency department, do not drive for 24 hours. Store this medication in a safe, secure place and out of reach of children. It is a violation of federal law to give or sell this medication to another person or to use in a manner other than prescribed. The ED will not refill narcotic prescriptions, including prescriptions lost or stolen. To dispose of unwanted medications: 1. [facility] provides a drop box for medication in pill f orm only (no liquids) 8:00 am to 4:30 p.m. Saturday-Saturday in the lobby of the [facility], [address] [place] [address]. Empty pills into ziplock bag before disposal. Call [phone] for information. 2.[employer] is a free service available to all [facility] residents. Go to [email or web address]/[email or web address]/ Note that many narcotic pain relievers also contain Tylenol/acetaminophen. Please ensure that your total dose of acetaminophen from all sources does not exceed 3 g (3000 mg) per day. Forms: PCP List Discharge Date/Time: 10/20/23 01:00
[2023-10-19] MEDS: HYDROmorphone 1 MG/ML CARPUJECT IVP STA ×2 (20:38→22:24)
[2023-10-19] MEDS: DEXAMETHASONE 10 MG/ML VIAL IVP STA (20:41)
[2023-10-19] MEDS: SODIUM CHLORIDE 0.9% 1,000 ML IV STA (20:41)
[2023-10-19] MEDS: KETOROLAC 15 MG/ML VIAL IVP STA (20:41)
[2023-10-19 20:58] LABS: BASOPHILS # (AUTO) 0.1 10^3/uL (0.0-0.1); BASOPHILS % (AUTO) 0.5 %; EOSINOPHILS # (AUTO) 0.2 10^3/uL (0.0-0.7); EOSINOPHILS % (AUTO) 1.6 %; HCT - HEMATOCRIT 25.8 % (37.0-47.0); LYMPHOCYTES # (AUTO) 1.9 10^3/uL (1.5-3.5); LYMPHOCYTES % (AUTO) 20.1 %; MEAN CORPUSCULAR HGB CONC 27.1 g/dL (32.0-36.0); MEAN CORPUSCULAR VOLUME 69.9 fL (81.0-99.0); MEAN PLATELET VOLUME 8.1 fL (7.9-10.8); MONOCYTES # (AUTO) 1.3 10^3/uL (0.0-1.0); MONOCYTES % (AUTO) 13.5 %; PLT - PLATELET COUNT 694 10^3/uL (130-450); RED BLOOD COUNT 3.69 10^6/uL (4.20-5.40); RED CELL DISTRIBUTION WIDTH 19.9 % (12.0-15.0); WHITE BLOOD COUNT 9.4 x10^3/uL (4.8-10.8)
[2023-10-19 22:07] LABS: B. PARAPERTUSSIS- RESP PCR PAN NOT DETECTED; B. PERTUSSIS- RESP PCR PANEL NOT DETECTED; C. PNEUMONIAE- RESP PCR PANEL NOT DETECTED; CORONAVIRUS 229E-RESP PCR NOT DETECTED; CORONAVIRUS HKU1-RESP PCR NOT DETECTED; CORONAVIRUS NL63-RESP PCR NOT DETECTED; CORONAVIRUS OC43-RESP PCR NOT DETECTED; HUMAN METAPNEUMOVIRUS NOT DETECTED; INFLUENZA A- RESP PCR PANEL NOT DETECTED; INFLUENZA B - RESP PCR PANEL NOT DETECTED; M. PNEUMONIAE- RESP PCR PANEL NOT DETECTED; PARAINFLUENZA VIRUS 1 NOT DETECTED; PARAINFLUENZA VIRUS 2 NOT DETECTED; PARAINFLUENZA VIRUS 3 NOT DETECTED; PARAINFLUENZA VIRUS 4 NOT DETECTED; RHINOVIRUS/ENTEROVIRUS NOT DETECTED; RSV- RESP PCR PANEL NOT DETECTED; SARS-CoV-2 -RESP PCR PANEL NOT DETECTED
[2023-10-19 22:15] LABS: ALBUMIN 2.8 g/dL (3.2-5.5); ALBUMIN/GLOBULIN RATIO 0.7 (1.0-2.2); BILIRUBIN,TOTAL 0.5 mg/dL (0.2-1.0); CALCIUM 8.2 mg/dL (8.5-10.3); CREATININE 0.4 mg/dL (0.6-1.3); TOTAL PROTEIN 6.9 g/dL (6.4-8.9)
[2023-10-19] MEDS: hydrOXYzine PAMOATE 25 MG CAPSULE PO STA (22:23)
[2023-10-19] MEDS: oxyCODONE/ACET 5/325 Prepack 4 PO STA (22:40)
[2023-10-19] MEDS: POTASSIUM BICARB 25 MEQ TABLET PO STA (22:40)
[2023-10-20] LABS: BILIRUBIN,URINE NEGATIVE (NEGATIVE); GLUCOSE, URINE (UA) NEGATIVE (NEGATIVE); KETONES,URINE (UA) TRACE mg/dL (NEGATIVE); LEUKOCYTE ESTERASE, URINE TRACE (NEGATIVE); NITRITE,URINE NEGATIVE (NEGATIVE); OCCULT BLOOD,URINE NEGATIVE (NEGATIVE); PROTEIN,URINE NEGATIVE (NEGATIVE); UROBILINOGEN,URINE 4 E.U./dL (NORMAL)
[2023-10-20 00:11] LABS: CLARITY,URINE CLEAR (CLEAR)
[2023-10-20 00:12] LABS: BACTERIA,URINE Many /HPF (None Seen); RBC,URINE None Seen /HPF (0-5); SQUAMOUS EPITHELIAL CELL,UR MANY Squamous (<= Few)
[2023-10-20 00:13] LABS: YEAST,URINE PRESENT
[2023-10-20 01:27] VITALS: BP 130/74; O2SAT 97
== END 2023-10-20 01:00 | disposition home or self-care (01) ==
LOC: ED 19:46
DX: L40.50 Arthropathic psoriasis, unspecified (principal); D63.8 Anemia in other chronic diseases classified elsewhere; M79.10 Myalgia, unspecified site; E87.6 Hypokalemia; M06.9 Rheumatoid arthritis, unspecified; Z79.899 Other long term (current) drug therapy
CPT/HCPCS: 36415; 80053; 81001; 83605; 85025; 87040; 87633; 96361; 96374; 96375; 96376; 99283; 99284; A9270; J1170; 81003; 87086

== ENCOUNTER 2023-11-14 16:59 | Emergency (ER) | payer MEDICAID ==
[2023-11-14] MEDS: SODIUM CHLORIDE 0.9% 1,000 ML IV ONE (17:43)
[2023-11-14 18:12] LABS: MAGNESIUM 1.4 mg/dL (1.7-2.3)
[2023-11-14 18:14] LABS: BASOPHILS % (AUTO) 0.3 %; EOSINOPHILS # (AUTO) 0.2 10^3/uL (0.0-0.7); EOSINOPHILS % (AUTO) 2.5 %; HCT - HEMATOCRIT 23.3 % (37.0-47.0); LYMPHOCYTES % (AUTO) 21.3 %; MEAN CORPUSCULAR HEMOGLOBIN 19.1 pg (27.0-31.0); MEAN CORPUSCULAR HGB CONC 27.9 g/dL (32.0-36.0); MEAN CORPUSCULAR VOLUME 68.3 fL (81.0-99.0); MEAN PLATELET VOLUME 7.8 fL (7.9-10.8); MONOCYTES # (AUTO) 1.1 10^3/uL (0.0-1.0); MONOCYTES % (AUTO) 11.8 %; NEUTROPHILS # (AUTO) 5.9 10^3/uL (1.5-6.6); NEUTROPHILS % (AUTO) 63.8 %; PLT - PLATELET COUNT 498 10^3/uL (130-450); RED BLOOD COUNT 3.41 10^6/uL (4.20-5.40); RED CELL DISTRIBUTION WIDTH 20.6 % (12.0-15.0); WHITE BLOOD COUNT 9.3 x10^3/uL (4.8-10.8)
[2023-11-14 18:19] LABS: ALBUMIN 3.3 g/dL (3.2-5.5); ALBUMIN/GLOBULIN RATIO 0.9 (1.0-2.2); ALKALINE PHOSPHATASE 59 IU/L (42-121); ALT ALANINE AMINOTRANSFERASE 5 IU/L (10-60); AST ASPARTATE AMINOTRANSFERASE 5 IU/L (10-42); BILIRUBIN,TOTAL 0.6 mg/dL (0.2-1.0); BUN - BLOOD UREA NITROGEN 7 mg/dL (6-20); CARBON DIOXIDE - CO2 26 mmol/L (21-32); CHLORIDE 101 mmol/L (101-111); CREATININE 0.5 mg/dL (0.6-1.3); GFR - MDRD 148 (>89); GLUCOSE 110 mg/dL (74-104); POTASSIUM 3.3 mmol/L (3.5-4.5); SODIUM 135 mmol/L (135-145); TOTAL PROTEIN 7.1 g/dL (6.4-8.9)
[2023-11-14 18:20] LABS: LIPASE < 10 U/L (11-82)
[2023-11-14 18:22] LABS: HGB - HEMOGLOBIN 6.5 g/dL (12.0-16.0)
[2023-11-14 18:39] LABS: BILIRUBIN,URINE SMALL (NEGATIVE); GLUCOSE, URINE (UA) NEGATIVE (NEGATIVE); KETONES,URINE (UA) 15 mg/dL (NEGATIVE); LEUKOCYTE ESTERASE, URINE TRACE (NEGATIVE); NITRITE,URINE NEGATIVE (NEGATIVE); OCCULT BLOOD,URINE NEGATIVE (NEGATIVE); PH,URINE 5.5 PH (5.0-7.5); PROTEIN,URINE TRACE mg/dL (NEGATIVE); UROBILINOGEN,URINE 4 E.U./dL (NORMAL)
--- NOTE | 2023-11-14 18:40 | ED Physician Documentation ---
History of Present Illness - Stated complaint Stated Complaint: FATIGUE/FEVER - Chief complaint Chief Complaint: General - Additonal information Additional information: 28-year-old female with complex past medical history including rheumatoid arthritis that is now psoriatic arthritis and severe anemia presents emergency department for generalized unwell feeling, fevers, chills, worsening bilateral knee and ankle pain, generalized malaise and fatigue. Fevers at home but up to 101-103. Patient is on leflunomide, methotrexate, Stelara she has been recently weaned off of her steroids she is seen by Dr. Bimal Chahal rheumatology PD PAST MEDICAL HISTORY - Past Medical History Past Medical History: Yes Endocrine/Autoimmune: Other Musculoskeletal: Rheumatoid arthritis Derm: Psoriasis - Past Surgical History Past Surgical History: Yes Ortho: Hip replacement - Present Medications Home Medications: Ambulatory Orders Medication Instructions Recorded Confirmed dexAMETHasone [Decadron] 4 mg PO 0800 4 Days #4 tablet 11/14/23 oxyCODONE [Roxicodone] 5 mg PO Q4-6H PRN #15 tablet 11/14/23 - Allergies Allergies/Adverse Reactions: Allergies Allergy/AdvReac Type Severity Reaction Status Date / Time naproxen AdvReac Unknown Verified 11/14/23 17:14 - Social History Does the pt smoke?: No Smoking Status: Never smoker Does the pt drink ETOH?: No Does the pt have substance abuse?: No - Immunizations Immunizations are current?: Yes - POLST Patient has POLST: No PD ED PE NORMAL - Vitals Vital signs reviewed: Yes - General General: Alert and oriented X 3, No acute distress, Well developed/nourished - HEENT HEENT: Atraumatic, PERRL - Neck Neck: No JVD - Cardiac Cardiac: RRR, No gallop, Strong equal pulses - Respiratory Respiratory: No respiratory distress, Clear bilaterally - Abdomen Abdomen: Normal bowel sounds, Soft, Non tender, No organomegaly - Back Back: No CVA TTP - Derm Derm: Other (very pale) - Extremities Extremities: Other (all joints very swollen and hot to the touch including bilateral wrists, knees (the worst) and ankles) - Neuro Neuro: Alert and oriented X 3, associate financial analyst 2-12 intact, No motor deficit, Normal speech Eye Opening: Spontaneous Motor: Obeys Commands Verbal: Oriented GCS Score: 15 - Psych Psych: Normal mood, Normal affect Results - Vitals Vitals: Vital Signs - 24 hr 11/14/23 11/14/23 11/14/23 17:05 17:25 18:25 Temperature 37.9 C Heart Rate 119 H 100 96 Heart Rate [ Apical] Respiratory 19 16 16 Rate Blood Pressure 128/80 107/94 H 134/86 H Blood Pressure [Left] O2 Saturation 98 98 100 11/14/23 11/14/23 11/14/23 18:30 20:00 20:36 Temperature 100.9 C H 100.9 C H Heart Rate 99 109 H Heart Rate [ 111 H Apical] Respiratory 16 15 19 Rate Blood Pressure 144/69 H 108/72 Blood Pressure 137/78 H [Left] O2 Saturation 96 98 96 11/14/23 11/14/23 11/14/23 20:53 21:00 21:37 Temperature 38.1 C H 38.1 C H 37.6 C Heart Rate 105 H Heart Rate [ 103 H 105 H Apical] Respiratory 16 16 18 Rate Blood Pressure 127/69 Blood Pressure 128/80 127/76 [Left] O2 Saturation 98 98 95 11/14/23 11/14/23 11/14/23 22:03 22:06 22:56 Temperature 97.1 C H 37.1 C 37.3 C Heart Rate Heart Rate [ 109 H 89 Apical] Respiratory 19 18 Rate Blood Pressure Blood Pressure 109/91 H 132/93 H [Left] O2 Saturation 97 100 11/14/23 11/14/23 23:00 23:44 Temperature 37.1 C Heart Rate 97 87 Heart Rate [ Apical] Respiratory 15 16 Rate Blood Pressure 112/67 123/70 Blood Pressure [Left] O2 Saturation 96 98 Oxygen O2 Source Room air - Labs Labs: Laboratory Tests 11/14/23 11/14/23 11/14/23 17:52 17:52 17:52 WBC 9.3 RBC 3.41 L Hgb 6.5 L* Hct 23.3 L MCV 68.3 L MCH 19.1 L MCHC 27.9 L RDW 20.6 H Plt Count 498 H MPV 7.8 L Neut # (Auto) 5.9 Lymph # (Auto) 2.0 [place] # (Auto) 1.1 H Eos # (Auto) 0.2 Baso # (Auto) 0.0 Absolute Nucleated RBC 0.00 Nucleated RBC % 0.0 Sodium 135 Potassium 3.3 L Chloride 101 Carbon Dioxide 26 Anion Gap 8.0 BUN 7 Creatinine 0.5 L Estimated GFR (MDRD) 148 Glucose 110 H Lactic Acid 0.9 Calcium 9.0 Magnesium 1.4 L Total Bilirubin 0.6 AST 5 L ALT 5 L Alkaline Phosphatase 59 Total Protein 7.1 Albumin 3.3 Globulin 3.8 Albumin/Globulin Ratio 0.9 L Lipase < 10 L Urine Color Urine Clarity Urine pH Ur Specific [place] Urine Protein Urine Glucose (UA) Urine Ketones Urine Occult Blood Urine Nitrite Urine Bilirubin Urine Urobilinogen Ur Leukocyte Esterase Urine RBC Urine WBC Ur Squamous Epith Cells Amorphous Sediment Urine Bacteria Urine Mucus Ur Microscopic Review Urine Culture Comments Nasal Adenovirus (PCR) Nasal B. parapertussis DNA (PCR) Nasal Coronavir 229E PCR Nasal Coronavir HKU1 PCR Nasal Coronavir NL63 PCR Nasal Coronavir OC43 PCR Nasal Enterovir/Rhinovir PCR Nasal Influenza B PCR Nasal Influenza A PCR Nasal Parainfluen 1 PCR Nasal Parainfluen 2 PCR Nasal Parainfluen 3 PCR Nasal Parainfluen 4 PCR Nasal RSV (PCR) Nasal B.pertussis DNA PCR Nasal C.pneumoniae (PCR) [place] Human Metapneumo PCR Nasal M.pneumoniae (PCR) Nasal SARS-CoV-2 (PCR) Blood Type Antibody Screen Crossmatch IS Only 11/14/23 11/14/23 11/14/23 18:03 18:20 18:57 WBC RBC Hgb Hct MCV MCH MCHC RDW Plt Count MPV Neut # (Auto) Lymph # (Auto) [place] # (Auto) Eos # (Auto) Baso # (Auto) Absolute Nucleated RBC Nucleated RBC % Sodium Potassium Chloride Carbon Dioxide Anion Gap BUN Creatinine Estimated GFR (MDRD) Glucose Lactic Acid Calcium Magnesium Total Bilirubin AST ALT Alkaline Phosphatase Total Protein Albumin Globulin Albumin/Globulin Ratio Lipase Urine Color DARK YELLOW Urine Clarity HAZY Urine pH 5.5 Ur Specific [place] >=1.030 H Urine Protein TRACE Urine Glucose (UA) NEGATIVE Urine Ketones 15 H Urine Occult Blood NEGATIVE Urine Nitrite NEGATIVE Urine Bilirubin SMALL H Urine Urobilinogen 4 H Ur Leukocyte Esterase TRACE H Urine RBC 0-5 Urine WBC 4-5 Ur Squamous Epith Cells MOD Squamous H Amorphous Sediment Few Urine Bacteria Moderate H Urine Mucus Few Strands Ur Microscopic Review INDICATED Urine Culture Comments NOT INDICATED Nasal Adenovirus (PCR) NOT DETECTED Nasal B. parapertussis DNA (PCR) NOT DETECTED Nasal Coronavir 229E PCR NOT DETECTED Nasal Coronavir HKU1 PCR DETECTED A Nasal Coronavir NL63 PCR NOT DETECTED Nasal Coronavir OC43 PCR NOT DETECTED Nasal Enterovir/Rhinovir PCR DETECTED A Nasal Influenza B PCR NOT DETECTED Nasal Influenza A PCR NOT DETECTED Nasal Parainfluen 1 PCR NOT DETECTED Nasal Parainfluen 2 PCR NOT DETECTED Nasal Parainfluen 3 PCR NOT DETECTED Nasal Parainfluen 4 PCR NOT DETECTED Nasal RSV (PCR) NOT DETECTED Nasal B.pertussis DNA PCR NOT DETECTED Nasal C.pneumoniae (PCR) NOT DETECTED [place] Human Metapneumo PCR NOT DETECTED Nasal M.pneumoniae (PCR) NOT DETECTED Nasal SARS-CoV-2 (PCR) NOT DETECTED Blood Type O POSITIVE Antibody Screen NEGATIVE Crossmatch IS Only See Detail 11/14/23 23:18 WBC RBC Hgb 7.6 L Hct MCV MCH MCHC RDW Plt Count MPV Neut # (Auto) Lymph # (Auto) [place] # (Auto) Eos # (Auto) Baso # (Auto) Absolute Nucleated RBC Nucleated RBC % Sodium Potassium Chloride Carbon Dioxide Anion Gap BUN Creatinine Estimated GFR (MDRD) Glucose Lactic Acid Calcium Magnesium Total Bilirubin AST ALT Alkaline Phosphatase Total Protein Albumin Globulin Albumin/Globulin Ratio Lipase Urine Color Urine Clarity Urine pH Ur Specific [place] Urine Protein Urine Glucose (UA) Urine Ketones Urine Occult Blood Urine Nitrite Urine Bilirubin Urine Urobilinogen Ur Leukocyte Esterase Urine RBC Urine WBC Ur Squamous Epith Cells Amorphous Sediment Urine Bacteria Urine Mucus Ur Microscopic Review Urine Culture Comments Nasal Adenovirus (PCR) Nasal B. parapertussis DNA (PCR) Nasal Coronavir 229E PCR Nasal Coronavir HKU1 PCR Nasal Coronavir NL63 PCR Nasal Coronavir OC43 PCR Nasal Enterovir/Rhinovir PCR Nasal Influenza B PCR Nasal Influenza A PCR Nasal Parainfluen 1 PCR Nasal Parainfluen 2 PCR Nasal Parainfluen 3 PCR Nasal Parainfluen 4 PCR Nasal RSV (PCR) Nasal B.pertussis DNA PCR Nasal C.pneumoniae (PCR) [place] Human Metapneumo PCR Nasal M.pneumoniae (PCR) Nasal SARS-CoV-2 (PCR) Blood Type Antibody Screen Crossmatch IS Only PD Medical Decision Making - ED course ED course: 28-year-old female presents emergency department for generalized malaise, fevers and chills. CBC reveals significant anemia, hemoglobin 6.5. She was given 1 unit of RBCs and hemoglobin responded quite well coming up to 7.6 with no transfusion reaction. CMP also collected potassium low at 3.3 this was replaced in the emergency department. No leukocytosis and lactate is within normal limits ruling out the possibility of this being related to possible septic arthritis. All joints are hot to the touch but patient was also tested positive for coronavirus and rhinovirus. I spoke with patient's service line coordinator Dr. Wallis who is very kind and helpful with this patient she said to go ahead and give patient some steroids to help with her psoriatic arthritic flare to replace RBCs as needed but does not necessarily think that patient is septic as the symptoms that patient is complaining of are very common when patients have a psoriatic arthritis flare. After patient received IV Dilaudid to help with her pain, IV dexamethasone, and 1 unit of RBCs patient said that she is feeling significant improvement in her symptoms. She said that she plans on following up outpatient with her primary care provider and service line coordinator as well as hardening machine operator helper for further evaluation and management of her psoriatic arthritic pain. I am prescribing a short course of short-acting opioid pain medication for this patient. I have reviewed the patients BOX INSPECTOR and no concerning findings were n oted. I have discussed that the opioids are for short term therapy only, and will not be refilled from the ED. I have also sent a prescription of dexamethasone to help with patient's arthritis flare. All questions answered safe for discharge return precautions given. Departure - Departure Disposition: 01 Home, Self Care Clinical Impression: Rhinovirus, Encounter for blood transfusion, Psoriatic arthritis of multiple joints Anemia Qualifiers: Anemia type: unspecified type Qualified Code(s): D64.9 - Anemia, unspecified Instructions: ED Viral Syndrome Prescriptions: dexAMETHasone [Decadron] 4 mg PO 0800 4 Days #4 tablet oxyCODONE [Roxicodone] 5 mg PO Q4-6H PRN #15 tablet PRN Reason: Pain >8 Comments: Thank you for trusting us with your care. As we discussed the wound that you are having a psoriatic arthritis flareup due to having 2 different viruses 1 being coronavirus and the other being rhinovirus. I have sent a prescription of dexamethasone to help with the psoriatic arthritic flare to [facility]. I have also sent oxycodone to help with your pain management. You can also take 1000 mg of Tylenol every 8 hours and 600 mg of ibuprofen every 6 hours. Please follow-up with your service line coordinator. We have also given you 1 unit of RBCs please come back to the emergency department for having any shortness of breath, chest pain, new rash, or any other new worsening or concerning symptoms. Forms: PCP List
[2023-11-14 18:42] LABS: CLARITY,URINE HAZY (CLEAR)
[2023-11-14 18:47] LABS: AMORPHOUS SEDIMENT,UR Few /LPF; BACTERIA,URINE Moderate /HPF (None Seen); MUCUS,URINE Few Strands; RBC,URINE 0-5 /HPF (0-5); SQUAMOUS EPITHELIAL CELL,UR MOD Squamous (<= Few)
[2023-11-14 19:02] LABS: CORONAVIRUS 229E-RESP PCR NOT DETECTED; CORONAVIRUS HKU1-RESP PCR DETECTED; CORONAVIRUS NL63-RESP PCR NOT DETECTED; CORONAVIRUS OC43-RESP PCR NOT DETECTED; HUMAN METAPNEUMOVIRUS NOT DETECTED; SARS-CoV-2 -RESP PCR PANEL NOT DETECTED
[2023-11-14 19:03] LABS: B. PARAPERTUSSIS- RESP PCR PAN NOT DETECTED; B. PERTUSSIS- RESP PCR PANEL NOT DETECTED; C. PNEUMONIAE- RESP PCR PANEL NOT DETECTED; INFLUENZA A- RESP PCR PANEL NOT DETECTED; INFLUENZA B - RESP PCR PANEL NOT DETECTED; M. PNEUMONIAE- RESP PCR PANEL NOT DETECTED; PARAINFLUENZA VIRUS 1 NOT DETECTED; PARAINFLUENZA VIRUS 2 NOT DETECTED; PARAINFLUENZA VIRUS 3 NOT DETECTED; PARAINFLUENZA VIRUS 4 NOT DETECTED; RHINOVIRUS/ENTEROVIRUS DETECTED; RSV- RESP PCR PANEL NOT DETECTED
[2023-11-14] MEDS: HYDROmorphone 0.5 MG/0.5 ML SYRINGE IVP STA ×3 (20:13→22:38)
[2023-11-14] MEDS: KETOROLAC 30 MG/ML VIAL IVP STA (20:33)
[2023-11-14] MEDS: ONDANSETRON 4 MG/2 ML VIAL IVP STA (21:13)
[2023-11-14] MEDS: DEXAMETHASONE 10 MG/ML VIAL IVP STA (21:13)
[2023-11-14] MEDS: hydrOXYzine PAMOATE 25 MG CAPSULE PO STA (21:13)
[2023-11-14] MEDS: HYDROcod/ACET 5/325 Prepack 4 PO STA (23:55)
[2023-11-15 00:36] VITALS: BP 132/93; O2SAT 100
== END 2023-11-14 23:55 | disposition home or self-care (01) ==
LOC: ED 16:59
DX: U07.1 COVID-19 (principal); B34.8 Other viral infections of unspecified site; M06.9 Rheumatoid arthritis, unspecified; Z96.649 Presence of unspecified artificial hip joint
CPT/HCPCS: 36415; 36430; 80053; 81001; 83605; 83690; 83735; 85018; 85025; 86850; 86900; 86901; 86920; 87040; 87633; 96374; 96375; 96376; 99285; A9270; J1170; P9016; 81003; 87086

== ENCOUNTER 2024-01-29 15:15 | Emergency (ER) | payer MEDICAID ==
[2024-01-29 15:35] VITALS: O2SAT 100
--- NOTE | 2024-01-29 15:59 | ED Physician Documentation ---
History of Present Illness - Stated complaint Stated Complaint: FATIGUE/SOA - Chief complaint Chief Complaint: General - Additonal information Additional information: This is a 28-year-old female who has a history of quite severe rheumatoid and psoriatic arthritis as well as anemia. She has been seen a few times in the past here for exacerbation of her rheumatoid arthritis and has required transfusion in the past. She is here today with 3 days of generally feeling unwell with increasing swelling in her knees, hips, ankles bilaterally with increased pain in these areas, and feeling very fatigued and somewhat short of breath. She has had subjective fever, no cough or other URI symptoms, no abdominal pain nausea vomiting or diarrhea. She states she did have an iron infusion recently and sometimes she feels somewhat sick after the iron infusions. She is currently on prednisone and is also on a new biologic.She is followed by rheumatology. Review of Systems Constitutional: reports: Fever, Chills, Myalgias, Fatigue Eyes: reports: Reviewed and negative Ears: reports: Reviewed and negative Nose: reports: Reviewed and negative Throat: reports: Reviewed and negative Cardiac: reports: Reviewed and negative Respiratory: reports: Dyspnea GI: reports: Reviewed and negative : reports: Reviewed and negative Skin: reports: Reviewed and negative Musculoskeletal: reports: Joint pain, Joint swelling Neurologic: reports: Generalized weakness Psychiatric: reports: Reviewed and negative Endocrine: reports: Reviewed and negative PD PAST MEDICAL HISTORY - Past Medical History Past Medical History: Yes Endocrine/Autoimmune: Other Musculoskeletal: Rheumatoid arthritis Derm: Psoriasis - Past Surgical History Past Surgical History: Yes Ortho: Hip replacement - Present Medications Home Medications: Ambulatory Orders Medication Instructions Recorded Confirmed dexAMETHasone [Decadron] 4 mg PO 0800 4 Days #4 tablet 11/14/23 oxyCODONE [Roxicodone] 5 mg PO Q4-6H PRN #15 tablet 11/14/23 oxyCODONE [Roxicodone] 5 mg PO Q4-6H #12 tablet 01/29/24 - Allergies Allergies/Adverse Reactions: Allergies Allergy/AdvReac Type Severity Reaction Status Date / Time naproxen AdvReac Unknown Verified 01/29/24 15:48 - Social History Does the pt smoke?: No Smoking Status: Never smoker Does the pt drink ETOH?: No Does the pt have substance abuse?: No - Immunizations Immunizations are current?: Yes - POLST Patient has POLST: No PD ED PE NORMAL - Vitals Vital signs reviewed: Yes - General General: Alert and oriented X 3, No acute distress, Well developed/nourished - HEENT HEENT: Atraumatic, Moist mucous membranes - Cardiac Cardiac: No murmur, Other (Tachycardic with regular rhythm) - Respiratory Respiratory: No respiratory distress, Clear bilaterally - Abdomen Abdomen: Normal bowel sounds, Soft, Non tender, Non distended - Derm Derm: Normal color, Warm and dry, No rash - Extremities Extremities: Other (Bilateral knee effusion with generalized tenderness, no erythema, bilateral hip tenderness, no erythema, bilateral ankle joint effusion and tenderness without erythema.) Results - Vitals Vitals: Vital Signs - 24 hr 01/29/24 15:26 Temperature 36.8 C Heart Rate 110 H Respiratory 16 Rate Blood Pressure 143/90 H O2 Saturation 100 Oxygen O2 Source Room air - Labs Labs: Laboratory Tests 01/29/24 01/29/24 01/29/24 16:10 16:10 16:10 WBC 9.0 RBC 4.34 Hgb 9.0 L Hct 31.3 L MCV 72.1 L MCH 20.7 L MCHC 28.8 L RDW 21.3 H Plt Count 469 H MPV 7.7 L Neut # (Auto) 5.8 Lymph # (Auto) 2.1 [place] # (Auto) 1.0 Eos # (Auto) 0.0 Baso # (Auto) 0.0 Absolute Nucleated RBC 0.00 Nucleated RBC % 0.0 Manual Slide Review Indicated Platelet Estimate INCREASED (>450,000) Platelet Morphology NORMAL APPEARANCE RBC Morph Micro Appear 2+ HYPOCHROMASIA Sodium 131 L Potassium 3.6 Chloride 100 L Carbon Dioxide 24 Anion Gap 7.0 BUN 11 Creatinine 0.6 Estimated GFR (MDRD) 120 Glucose 105 H Lactic Acid 1.0 Calcium 9.5 Total Bilirubin 0.7 AST 13 ALT 5 L Alkaline Phosphatase 62 Total Protein 8.2 Albumin 3.8 Globulin 4.4 H Albumin/Globulin Ratio 0.9 L Lipase < 10 L Urine Color Urine Clarity Urine pH Ur Specific [place] Urine Protein Urine Glucose (UA) Urine Ketones Urine Occult Blood Urine Nitrite Urine Bilirubin Urine Urobilinogen Ur Leukocyte Esterase Urine RBC Urine WBC Ur Squamous Epith Cells Urine Bacteria Ur Microscopic Review Urine Culture Comments Urine HCG, Qual Nasal Adenovirus (PCR) Nasal B. parapertussis DNA (PCR) Nasal Coronavir 229E PCR Nasal Coronavir HKU1 PCR Nasal Coronavir NL63 PCR Nasal Coronavir OC43 PCR Nasal Enterovir/Rhinovir PCR Nasal Influenza B PCR Nasal Influenza A PCR Nasal Parainfluen 1 PCR Nasal Parainfluen 2 PCR Nasal Parainfluen 3 PCR Nasal Parainfluen 4 PCR Nasal RSV (PCR) Nasal B.pertussis DNA PCR Nasal C.pneumoniae (PCR) [place] Human Metapneumo PCR Nasal M.pneumoniae (PCR) Nasal SARS-CoV-2 (PCR) Blood Type Antibody Screen 01/29/24 01/29/24 01/29/24 16:10 16:10 16:10 WBC RBC Hgb Hct MCV MCH MCHC RDW Plt Count MPV Neut # (Auto) Lymph # (Auto) [place] # (Auto) Eos # (Auto) Baso # (Auto) Absolute Nucleated RBC Nucleated RBC % Manual Slide Review Platelet Estimate Platelet Morphology RBC Morph Micro Appear Sodium Potassium Chloride Carbon Dioxide Anion Gap BUN Creatinine Estimated GFR (MDRD) Glucose Lactic Acid Calcium Total Bilirubin AST ALT Alkaline Phosphatase Total Protein Albumin Globulin Albumin/Globulin Ratio Lipase Urine Color YELLOW Urine Clarity HAZY Urine pH 6.0 Ur Specific [place] 1.025 Urine Protein NEGATIVE Urine Glucose (UA) NEGATIVE Urine Ketones 40 H Urine Occult Blood MODERATE H Urine Nitrite NEGATIVE Urine Bilirubin MODERATE H Urine Urobilinogen 4 H Ur Leukocyte Esterase TRACE H Urine RBC 6-10 H Urine WBC 4-5 Ur Squamous Epith Cells FEW Squamous Urine Bacteria Few Ur Microscopic Review INDICATED Urine Culture Comments INDICATED Urine HCG, Qual NEGATIVE Nasal Adenovirus (PCR) Nasal B. parapertussis DNA (PCR) Nasal Coronavir 229E PCR Nasal Coronavir HKU1 PCR Nasal Coronavir NL63 PCR Nasal Coronavir OC43 PCR Nasal Enterovir/Rhinovir PCR Nasal Influenza B PCR Nasal Influenza A PCR Nasal Parainfluen 1 PCR Nasal Parainfluen 2 PCR Nasal Parainfluen 3 PCR Nasal Parainfluen 4 PCR Nasal RSV (PCR) Nasal B.pertussis DNA PCR Nasal C.pneumoniae (PCR) [place] Human Metapneumo PCR Nasal M.pneumoniae (PCR) Nasal SARS-CoV-2 (PCR) Blood Type O POSITIVE Antibody Screen NEGATIVE 01/29/24 16:15 WBC RBC Hgb Hct MCV MCH MCHC RDW Plt Count MPV Neut # (Auto) Lymph # (Auto) [place] # (Auto) Eos # (Auto) Baso # (Auto) Absolute Nucleated RBC Nucleated RBC % Manual Slide Review Platelet Estimate Platelet Morphology RBC Morph Micro Appear Sodium Potassium Chloride Carbon Dioxide Anion Gap BUN Creatinine Estimated GFR (MDRD) Glucose Lactic Acid Calcium Total Bilirubin AST ALT Alkaline Phosphatase Total Protein Albumin Globulin Albumin/Globulin Ratio Lipase Urine Color Urine Clarity Urine pH Ur Specific [place] Urine Protein Urine Glucose (UA) Urine Ketones Urine Occult Blood Urine Nitrite Urine Bilirubin Urine Urobilinogen Ur Leukocyte Esterase Urine RBC Urine WBC Ur Squamous Epith Cells Urine Bacteria Ur Microscopic Review Urine Culture Comments Urine HCG, Qual Nasal Adenovirus (PCR) NOT DETECTED Nasal B. parapertussis DNA (PCR) NOT DETECTED Nasal Coronavir 229E PCR NOT DETECTED Nasal Coronavir HKU1 PCR NOT DETECTED Nasal Coronavir NL63 PCR NOT DETECTED Nasal Coronavir OC43 PCR NOT DETECTED Nasal Enterovir/Rhinovir PCR NOT DETECTED Nasal Influenza B PCR NOT DETECTED Nasal Influenza A PCR NOT DETECTED Nasal Parainfluen 1 PCR NOT DETECTED Nasal Parainfluen 2 PCR NOT DETECTED Nasal Parainfluen 3 PCR NOT DETECTED Nasal Parainfluen 4 PCR NOT DETECTED Nasal RSV (PCR) NOT DETECTED Nasal B.pertussis DNA PCR NOT DETECTED Nasal C.pneumoniae (PCR) NOT DETECTED [place] Human Metapneumo PCR NOT DETECTED Nasal M.pneumoniae (PCR) NOT DETECTED Nasal SARS-CoV-2 (PCR) NOT DETECTED Blood Type Antibody Screen - Rads (name of study) No standard instances Relevant Findings:: Final report received PD Medical Decision Making - ED course Complexity details: reviewed results, re-evaluated patient, considered differential ED course: 28-year-old female who unfortunately suffers from severe rheumatoid arthritis presented with increasing joint pain and swelling as well as generalized fatigue and shortness of breath as described in HPI. She is mildly tachycardic on initial exam but afebrile, nontoxic-appearing. She has increased swelling of knees, hips and ankles bilaterally but no erythema and have low suspicion for septic arthritis. This is quite similar to her prior exacerbations of her rheumatoid/psoriatic arthritis. The patient however has had issues with severe anemia in the past so I did recommend we obtain labs and a IV was established, labs were obtained which showed a quite good hemoglobin at this point in time, hemoglobin of 9, and no leukocytosis. Her CMP is fairly unremarkable. Urinalysis negative for signs of infection, viral screen negative and chest x- ray within normal. Patient is feeling better after receiving Dilaudid and hydroxyzine as well as a liter of fluid. She was given an additional 0.5 mg of IV Dilaudid and will be discharged home with short course of as Oxycodone a strongly urged to use only sparingly as patient has been on this intermittently quite frequently in the past. She will temporarily increase her chronic steroid use and then slowly titrate down. She is to follow-up with her human geography faculty member at her neck scheduled appointment on February 15 or sooner as needed. She is aware of return precautions and was discharged home in stable condition. Departure - Departure Disposition: 01 Home, Self Care Clinical Impression: Rheumatoid arthritis flare Condition: Good Instructions: ED Arthritis Rheumatoid Prescriptions: oxyCODONE [Roxicodone] 5 mg PO Q4-6H #12 tablet Comments: Increase your steroids to 40 mg daily for 3 days then 30 mg daily for 3 days then 20 mg daily for 3 days and then return to your 50 mg daily. If you do not have improvement with this, please contact your human geography faculty member. If you worsen return to the ER. I am prescribing a short course of narcotic pain medication for you. These are potentially dangerous and addictive medications that should be used carefully. These medications may constipate you. Take an [id number] stool softener (docusate) twice daily with plenty of water while taking these medications. If you go 24 hours without a bowel movement, take [id number] miralax, per package instructions. Do not drink or drive while taking these medications. If you received narcotic or sedating medications while in the emergency department, do not drive for 24 hours. Store this medication in a safe, secure place and out of reach of children. It is a violation of federal law to give or sell this medication to another person or to use in a manner other than prescribed. The ED will not refill narcotic prescriptions, including prescriptions lost or stolen. To dispose of unwanted medications: 1. [facility] provides a drop box for medication in pill form only (no liquids) 8:00 am to 4:30 p.m. Saturday-Saturday in the lobby of the [facility], [address] [place] [address]. Empty pills into ziplock bag before disposal. Call [phone] for information. 2.[employer] is a free service available to all [facility] residents. Go to [email or web address] Note that many narcotic pain relievers also contain Tylenol/acetaminophen. Please ensure that your total dose of acetaminophen from all sources does not exceed 3 g (3000 mg) per day. Forms: PCP List
[2024-01-29 16:23] LABS: BASOPHILS % (AUTO) 0.2 %; EOSINOPHILS % (AUTO) 0.4 %; HCT - HEMATOCRIT 31.3 % (37.0-47.0); LYMPHOCYTES # (AUTO) 2.1 10^3/uL (1.5-3.5); LYMPHOCYTES % (AUTO) 22.9 %; MEAN CORPUSCULAR HEMOGLOBIN 20.7 pg (27.0-31.0); MEAN CORPUSCULAR HGB CONC 28.8 g/dL (32.0-36.0); MEAN CORPUSCULAR VOLUME 72.1 fL (81.0-99.0); MEAN PLATELET VOLUME 7.7 fL (7.9-10.8); MONOCYTES % (AUTO) 11.2 %; NEUTROPHILS # (AUTO) 5.8 10^3/uL (1.5-6.6); NEUTROPHILS % (AUTO) 64.9 %; PLT - PLATELET COUNT 469 10^3/uL (130-450); RED BLOOD COUNT 4.34 10^6/uL (4.20-5.40); RED CELL DISTRIBUTION WIDTH 21.3 % (12.0-15.0)
[2024-01-29 16:30] LABS: BILIRUBIN,URINE MODERATE (NEGATIVE); GLUCOSE, URINE (UA) NEGATIVE (NEGATIVE); KETONES,URINE (UA) 40 mg/dL (NEGATIVE); LEUKOCYTE ESTERASE, URINE TRACE (NEGATIVE); NITRITE,URINE NEGATIVE (NEGATIVE); OCCULT BLOOD,URINE MODERATE (NEGATIVE); PROTEIN,URINE NEGATIVE (NEGATIVE); SLIDE REVIEW? Indicated; UROBILINOGEN,URINE 4 E.U./dL (NORMAL)
[2024-01-29 16:33] LABS: CLARITY,URINE HAZY (CLEAR); HCG UR QUAL NEGATIVE
--- NOTE | 2024-01-29 16:36 | XRAY Report ---
PROCEDURE: Chest 2V INDICATIONS: cough TECHNIQUE: 2 views of the chest were acquired. COMPARISON: None. FINDINGS: Surgical changes and devices: None. Lungs and pleura: No pleural effusions or pneumothorax. Lungs are clear. No focal consolidations. Mediastinum: Mediastinal contours appear normal. Heart size is normal. Bones and chest wall: No suspicious bony lesions. Overlying soft tissues appear unremarkable. IMPRESSION: No acute cardiopulmonary process. Reviewed by: Moreno Benjamin MD on 01/29/2024 4:35 PM PDT Approved by: Moreno Benjamin MD on 01/29/2024 4:35 PM PDT Station ID: [id number]
[2024-01-29 16:39] LABS: BACTERIA,URINE Few /HPF (None Seen); SQUAMOUS EPITHELIAL CELL,UR FEW Squamous (<= Few)
[2024-01-29] MEDS: SODIUM CHLORIDE 0.9% 1,000 ML IV STA (16:39)
[2024-01-29] MEDS: HYDROmorphone 1 MG/ML CARPUJECT IVP STA ×2 (16:39→17:37)
[2024-01-29 16:46] LABS: ALBUMIN 3.8 g/dL (3.2-5.5); ALBUMIN/GLOBULIN RATIO 0.9 (1.0-2.2); ALKALINE PHOSPHATASE 62 IU/L (42-121); ALT ALANINE AMINOTRANSFERASE 5 IU/L (10-60); AST ASPARTATE AMINOTRANSFERASE 13 IU/L (10-42); BILIRUBIN,TOTAL 0.7 mg/dL (0.2-1.0); BUN - BLOOD UREA NITROGEN 11 mg/dL (6-20); CALCIUM 9.5 mg/dL (8.5-10.3); CARBON DIOXIDE - CO2 24 mmol/L (21-32); CHLORIDE 100 mmol/L (101-111); CREATININE 0.6 mg/dL (0.6-1.3); GFR - MDRD 120 (>89); GLUCOSE 105 mg/dL (74-104); LIPASE < 10 U/L (11-82); POTASSIUM 3.6 mmol/L (3.5-4.5); SODIUM 131 mmol/L (135-145); TOTAL PROTEIN 8.2 g/dL (6.4-8.9)
[2024-01-29] MEDS: ONDANSETRON 4 MG/2 ML VIAL IVP STA (16:52)
[2024-01-29 16:57] LABS: PLATELET ESTIMATE, MANUAL INCREASED (>450,000) (NORMAL); PLATELET MORPHOLOGY NORMAL APPEARANCE (NORMAL)
[2024-01-29] MEDS: hydrOXYzine PAMOATE 25 MG CAPSULE PO STA (17:10)
[2024-01-29 17:14] LABS: CORONAVIRUS 229E-RESP PCR NOT DETECTED; CORONAVIRUS HKU1-RESP PCR NOT DETECTED; CORONAVIRUS NL63-RESP PCR NOT DETECTED; CORONAVIRUS OC43-RESP PCR NOT DETECTED; HUMAN METAPNEUMOVIRUS NOT DETECTED; INFLUENZA A- RESP PCR PANEL NOT DETECTED; INFLUENZA B - RESP PCR PANEL NOT DETECTED; PARAINFLUENZA VIRUS 1 NOT DETECTED; PARAINFLUENZA VIRUS 2 NOT DETECTED; PARAINFLUENZA VIRUS 3 NOT DETECTED; PARAINFLUENZA VIRUS 4 NOT DETECTED; RHINOVIRUS/ENTEROVIRUS NOT DETECTED; SARS-CoV-2 -RESP PCR PANEL NOT DETECTED
[2024-01-29 17:15] LABS: B. PARAPERTUSSIS- RESP PCR PAN NOT DETECTED; B. PERTUSSIS- RESP PCR PANEL NOT DETECTED; C. PNEUMONIAE- RESP PCR PANEL NOT DETECTED; M. PNEUMONIAE- RESP PCR PANEL NOT DETECTED; RSV- RESP PCR PANEL NOT DETECTED
[2024-01-29] MEDS: SODIUM CHLORIDE 0.9% 500 ML IV STA (17:38)
[2024-01-29 18:04] VITALS: BP 147/96
== END 2024-01-29 18:12 | disposition home or self-care (01) ==
LOC: ED 15:15
DX: M06.9 Rheumatoid arthritis, unspecified (principal)
CPT/HCPCS: 36415; 71046; 80053; 81001; 81025; 83605; 83690; 85025; 86850; 86900; 86901; 87086; 87633; 96361; 96374; 96375; 96376; 99284; A9270; J1170; 81003

== ENCOUNTER 2024-02-16 19:09 | Emergency (ER) | payer MEDICAID ==
[2024-02-16 21:02] LABS: B. PARAPERTUSSIS- RESP PCR PAN NOT DETECTED; B. PERTUSSIS- RESP PCR PANEL NOT DETECTED; C. PNEUMONIAE- RESP PCR PANEL NOT DETECTED; CORONAVIRUS 229E-RESP PCR NOT DETECTED; CORONAVIRUS HKU1-RESP PCR NOT DETECTED; CORONAVIRUS NL63-RESP PCR NOT DETECTED; CORONAVIRUS OC43-RESP PCR NOT DETECTED; HUMAN METAPNEUMOVIRUS NOT DETECTED; INFLUENZA A- RESP PCR PANEL NOT DETECTED; INFLUENZA B - RESP PCR PANEL NOT DETECTED; M. PNEUMONIAE- RESP PCR PANEL NOT DETECTED; PARAINFLUENZA VIRUS 1 NOT DETECTED; PARAINFLUENZA VIRUS 2 NOT DETECTED; PARAINFLUENZA VIRUS 3 NOT DETECTED; PARAINFLUENZA VIRUS 4 NOT DETECTED; RHINOVIRUS/ENTEROVIRUS NOT DETECTED; RSV- RESP PCR PANEL NOT DETECTED
[2024-02-16 21:03] LABS: SARS-CoV-2 -RESP PCR PANEL DETECTED
[2024-02-16 21:19] LABS: BASOPHILS % (AUTO) 0.3 %; EOSINOPHILS # (AUTO) 0.1 10^3/uL (0.0-0.7); EOSINOPHILS % (AUTO) 1.4 %; HCT - HEMATOCRIT 30.3 % (37.0-47.0); HGB - HEMOGLOBIN 8.5 g/dL (12.0-16.0); LYMPHOCYTES # (AUTO) 2.2 10^3/uL (1.5-3.5); LYMPHOCYTES % (AUTO) 21.8 %; MEAN CORPUSCULAR HEMOGLOBIN 20.8 pg (27.0-31.0); MEAN CORPUSCULAR HGB CONC 28.1 g/dL (32.0-36.0); MEAN CORPUSCULAR VOLUME 74.1 fL (81.0-99.0); MEAN PLATELET VOLUME 7.6 fL (7.9-10.8); MONOCYTES # (AUTO) 1.3 10^3/uL (0.0-1.0); MONOCYTES % (AUTO) 12.6 %; NEUTROPHILS # (AUTO) 6.3 10^3/uL (1.5-6.6); NEUTROPHILS % (AUTO) 63.5 %; PLT - PLATELET COUNT 550 10^3/uL (130-450); RED BLOOD COUNT 4.09 10^6/uL (4.20-5.40); RED CELL DISTRIBUTION WIDTH 21.2 % (12.0-15.0)
[2024-02-16 21:33] LABS: LIPASE < 10 U/L (11-82); MAGNESIUM 1.4 mg/dL (1.7-2.3)
[2024-02-16 21:38] LABS: PLATELET ESTIMATE, MANUAL INCREASED (>450,000) (NORMAL); PLATELET MORPHOLOGY NORMAL APPEARANCE (NORMAL); SLIDE REVIEW? Indicated
[2024-02-16 22:22] LABS: ALBUMIN 3.4 g/dL (3.2-5.5); ALBUMIN/GLOBULIN RATIO 0.9 (1.0-2.2); ALKALINE PHOSPHATASE 63 IU/L (42-121); ALT ALANINE AMINOTRANSFERASE 5 IU/L (10-60); AST ASPARTATE AMINOTRANSFERASE 6 IU/L (10-42); BILIRUBIN,TOTAL 0.7 mg/dL (0.2-1.0); BUN - BLOOD UREA NITROGEN 6 mg/dL (6-20); CALCIUM 8.9 mg/dL (8.5-10.3); CARBON DIOXIDE - CO2 28 mmol/L (21-32); CREATININE 0.6 mg/dL (0.6-1.3); GFR - MDRD 120 (>89); GLUCOSE 101 mg/dL (74-104); TOTAL PROTEIN 7.4 g/dL (6.4-8.9)
[2024-02-16 22:31] LABS: CHLORIDE 96 mmol/L (101-111); POTASSIUM 2.7 mmol/L (3.5-4.5); SODIUM 133 mmol/L (135-145)
[2024-02-16] MEDS: SODIUM CHLORIDE 0.9% 1,000 ML IV STA (22:46)
[2024-02-16] MEDS: ONDANSETRON 4 MG/2 ML VIAL IVP STA (22:50)
[2024-02-16] MEDS: HYDROmorphone 0.5 MG/0.5 ML SYRINGE IVP STA (23:30)
[2024-02-16] MEDS: POTASSIUM CHLOR 10 MEQ/100 ML 10 MEQ/100 ML BAG IV STA (23:33)
[2024-02-17] MEDS: MAGNESIUM SULFATE 2 GRAM 2 GM/50 ML BAG IV ONE (00:47)
[2024-02-17] MEDS: MAGNESIUM OXIDE 400 MG TABLET PO ONE (01:00)
[2024-02-17] MEDS: oxyCODONE 5 MG TABLET PO STA (01:00)
[2024-02-17] MEDS: SODIUM CHLORIDE 0.9% 1,000 ML IV STA (01:00)
[2024-02-17] MEDS: POTASSIUM CHLORIDE 20 MEQ/15 ML UDC PO ONE (01:00)
[2024-02-17] MEDS: POTASSIUM CHLOR 10 MEQ/100 ML 10 MEQ/100 ML BAG IV STA (01:46)
--- NOTE | 2024-02-17 02:34 | ED Physician Documentation ---
History of Present Illness - Stated complaint Stated Complaint: FEVER/VOMITTING - Chief complaint Chief Complaint: General - Additonal information Additional information: 28-year-old female with rheumatoid arthritis presents with fever, chills, body ache, nausea, vomiting. Symptoms ongoing x 2 days. Denies known sick contacts. Review of Systems Constitutional: reports: Fever, Myalgias Eyes: denies: Loss of vision Ears: denies: Loss of hearing Nose: denies: Rhinorrhea / runny nose Throat: denies: Dental pain / toothache Cardiac: denies: Chest pain / pressure Respiratory: reports: Cough GI: reports: Nausea, Vomiting. denies: Diarrhea PD PAST MEDICAL HISTORY - Past Medical History Endocrine/Autoimmune: Other Musculoskeletal: Rheumatoid arthritis Derm: Psoriasis - Past Surgical History Past Surgical History: Yes Ortho: Hip replacement - Present Medications Home Medications: Ambulatory Orders Medication Instructions Recorded Confirmed Magnesium Oxide [Mag Ox] 400 mg PO DAILY #30 tablet 02/17/24 Ondansetron Odt [Zofran] 4 mg TL Q6H PRN #10 tablet 02/17/24 Potassium Chloride 20 meq PO BID #60 tab 02/17/24 - Allergies Allergies/Adverse Reactions: Allergies Allergy/AdvReac Type Severity Reaction Status Date / Time naproxen AdvReac Unknown Verified 02/16/24 19:17 - Social History Does the pt smoke?: No Smoking Status: Never smoker Does the pt drink ETOH?: No Does the pt have substance abuse?: No - Immunizations Immunizations are current?: Yes - POLST Patient has POLST: No PD ED PE NORMAL - Vitals Vital signs reviewed: Yes - General General: Alert and oriented X 3, No acute distress, Well developed/nourished - HEENT HEENT: Atraumatic, PERRL, EOMI, Ears normal, Moist mucous membranes, Pharynx benign - Neck Neck: Supple, no meningeal sign, No bony TTP, No adenopathy, Thyroid normal, No JVD, No bruit, C-Spine cleared by NEXUS criteria - Cardiac Cardiac: RRR, No murmur, No gallop, Strong equal pulses - Respiratory Respiratory: No respiratory distress, Clear bilaterally - Abdomen Abdomen: Normal bowel sounds, Soft, Non tender, No organomegaly - Female Female : Deferred - Rectal Rectal: Deferred - Back Back: No CVA TTP Results - Vitals Vitals: Vital Signs - 24 hr 02/16/24 02/16/24 02/16/24 19:12 21:45 22:30 Temperature 37.1 C 38.7 C H Heart Rate 115 H 95 95 Respiratory 16 16 20 Rate Blood Pressure 129/62 125/71 122/63 O2 Saturation 100 96 98 02/17/24 02/17/24 00:00 00:51 Temperature Heart Rate 95 87 Respiratory 16 16 Rate Blood Pressure 128/65 126/60 O2 Saturation 98 99 Oxygen O2 Source Room air - Labs Labs: Laboratory Tests 02/16/24 02/16/24 02/16/24 20:00 21:14 21:14 WBC 10.0 RBC 4.09 L Hgb 8.5 L Hct 30.3 L MCV 74.1 L MCH 20.8 L MCHC 28.1 L RDW 21.2 H Plt Count 550 H MPV 7.6 L Neut # (Auto) 6.3 Lymph # (Auto) 2.2 [place] # (Auto) 1.3 H Eos # (Auto) 0.1 Baso # (Auto) 0.0 Absolute Nucleated RBC 0.00 Nucleated RBC % 0.0 Manual Slide Review Indicated Platelet Estimate INCREASED (>450,000) Platelet Morphology NORMAL APPEARANCE RBC Morph Micro Appear 1+ POLYCHROMASIA Sodium 133 L Potassium 2.7 L Chloride 96 L Carbon Dioxide 28 Anion Gap 9.0 BUN 6 Creatinine 0.6 Estimated GFR (MDRD) 120 Glucose 101 Calcium 8.9 Magnesium 1.4 L Total Bilirubin 0.7 AST 6 L ALT 5 L Alkaline Phosphatase 63 Total Protein 7.4 Albumin 3.4 Globulin 4.0 Albumin/Globulin Ratio 0.9 L Lipase < 10 L Nasal Adenovirus (PCR) NOT DETECTED Nasal B. parapertussis DNA (PCR) NOT DETECTED Nasal Coronavir 229E PCR NOT DETECTED Nasal Coronavir HKU1 PCR NOT DETECTED Nasal Coronavir NL63 PCR NOT DETECTED Nasal Coronavir OC43 PCR NOT DETECTED Nasal Enterovir/Rhinovir PCR NOT DETECTED Nasal Influenza B PCR NOT DETECTED Nasal Influenza A PCR NOT DETECTED Nasal Parainfluen 1 PCR NOT DETECTED Nasal Parainfluen 2 PCR NOT DETECTED Nasal Parainfluen 3 PCR NOT DETECTED Nasal Parainfluen 4 PCR NOT DETECTED Nasal RSV (PCR) NOT DETECTED Nasal B.pertussis DNA PCR NOT DETECTED Nasal C.pneumoniae (PCR) NOT DETECTED Paulo Human Metapneumo PCR NOT DETECTED Nasal M.pneumoniae (PCR) NOT DETECTED Nasal SARS-CoV-2 (PCR) DETECTED A PD Medical Decision Making - ED course Complexity details: reviewed results, re-evaluated patient, considered differential, d/w patient ED course: 28-year-old female with rheumatoid arthritis presents to the emergency department chief complaint fever, nausea, vomiting, generalized body ache. Febrile with low-level tachycardia on arrival. IV access established. IV fluids given. Patient's tachycardia resolved. Subsequently identified as being COVID-positive. Additionally she has slight worsening of her chronic hypokalemia and hypomagnesemia. She is given magnesium and potassium repletion. She tolerated a p.o. trial here in the emergency department. Is ambulated. Has clear aeration in all lung dickson and is not requiring supplemental oxygen. There is no indication for admission at this time. Will discharge for follow-up with primary care with potassium and magnesium supplementation, Zofran. Clear return precautions given prior to discharge. Departure - Departure Disposition: Home, Self Care Clinical Impression: COVID-19, Hypokalemia, Hypomagnesemia Instructions: ED Viral Syndrome, ED Potassium Deficiency, ED Diet High Potassium, Potassium Supplements Prescriptions: Magnesium Oxide [Mag Ox] 400 mg PO DAILY #30 tablet Potassium Chloride 20 meq PO BID #60 tab Ondansetron Odt [Zofran] 4 mg TL Q6H PRN #10 tablet PRN Reason: Nausea / Vomiting Comments: Thank you for allowing us to care for you today [facility]. Today in the emergency department you are diagnosed with a SARS COVID virus. You received IV fluids as well as electrolyte repletion here in the emergency room. I have written prescriptions for oral potassium and magnesium supplements to begin taking at home. Please fill these prescriptions and begin them tomorrow. I also recommend increasing your intake and potassium rich foods such as bananas, radishes, avocados, leafy green vegetables. I written medication to help with any ongoing nausea. You received doses here in the emergency department as well as a take-home pack and I have written for further medicines to be picked up at your preferred pharmacy. Please quarantine per current CDC guidelines. Otherwise I recommend vigorous use of facial masks, handwashing in order to prevent the spread of the SARS COVID virus. Please follow-up with your primary care doctor concerning your ER evaluation. If it anytime you develop any new or worsening symptoms please not hesitate to return. Forms: PCP List, Activity restrictions
[2024-02-17] MEDS: ONDANSETRON ODT 4 MG Prepack 2 TL PRN (02:55)
[2024-02-17 03:00] VITALS: O2SAT 98
[2024-02-17 03:10] VITALS: BP 161/63
== END 2024-02-17 03:03 | disposition home or self-care (01) ==
LOC: ED 19:09
DX: U07.1 COVID-19 (principal); E87.6 Hypokalemia; E83.42 Hypomagnesemia
CPT/HCPCS: 36415; 80053; 83690; 83735; 85025; 87633; 96365; 96366; 96367; 96375; 96376; 99284; 99285; A9270; J1170

== ENCOUNTER 2024-04-07 18:30 | Emergency (ER) | payer MEDICAID ==
[2024-04-07 20:08] LABS: BILIRUBIN,URINE MODERATE (NEGATIVE); GLUCOSE, URINE (UA) NEGATIVE (NEGATIVE); KETONES,URINE (UA) >=80 mg/dL (NEGATIVE); LEUKOCYTE ESTERASE, URINE NEGATIVE (NEGATIVE); NITRITE,URINE NEGATIVE (NEGATIVE); OCCULT BLOOD,URINE MODERATE (NEGATIVE); PROTEIN,URINE 30 mg/dL (NEGATIVE); UROBILINOGEN,URINE 4 E.U./dL (NORMAL)
[2024-04-07 20:10] LABS: HCG UR QUAL NEGATIVE
[2024-04-07 20:11] LABS: CLARITY,URINE HAZY (CLEAR)
[2024-04-07 20:17] LABS: BACTERIA,URINE Moderate /HPF (None Seen); MUCUS,URINE Marked Strands; SQUAMOUS EPITHELIAL CELL,UR MANY Squamous (<= Few); WBC,URINE 0-3 /HPF (0-5)
[2024-04-07] MEDS: ONDANSETRON 4 MG/2 ML VIAL IVP STA (20:44)
[2024-04-07 20:45] LABS: BASOPHILS % (AUTO) 0.4 %; EOSINOPHILS % (AUTO) 0.4 %; HCT - HEMATOCRIT 26.9 % (37.0-47.0); LYMPHOCYTES # (AUTO) 1.5 10^3/uL (1.5-3.5); MEAN CORPUSCULAR HEMOGLOBIN 22.3 pg (27.0-31.0); MEAN CORPUSCULAR HGB CONC 29.7 g/dL (32.0-36.0); MEAN CORPUSCULAR VOLUME 75.1 fL (81.0-99.0); MEAN PLATELET VOLUME 7.7 fL (7.9-10.8); MONOCYTES # (AUTO) 1.1 10^3/uL (0.0-1.0); MONOCYTES % (AUTO) 13.6 %; NEUTROPHILS # (AUTO) 5.6 10^3/uL (1.5-6.6); NEUTROPHILS % (AUTO) 67.2 %; PLT - PLATELET COUNT 530 10^3/uL (130-450); RED BLOOD COUNT 3.58 10^6/uL (4.20-5.40); RED CELL DISTRIBUTION WIDTH 17.8 % (12.0-15.0); WHITE BLOOD COUNT 8.3 x10^3/uL (4.8-10.8)
[2024-04-07] MEDS: SODIUM CHLORIDE 0.9% 1,000 ML IV STA (20:45)
[2024-04-07 21:04] LABS: ALBUMIN 3.3 g/dL (3.2-5.5); ALBUMIN/GLOBULIN RATIO 0.7 (1.0-2.2); ALKALINE PHOSPHATASE 73 IU/L (42-121); ALT ALANINE AMINOTRANSFERASE 4 IU/L (10-60); AST ASPARTATE AMINOTRANSFERASE 6 IU/L (10-42); BILIRUBIN,TOTAL 0.6 mg/dL (0.2-1.0); BUN - BLOOD UREA NITROGEN 5 mg/dL (6-20); CARBON DIOXIDE - CO2 25 mmol/L (21-32); CHLORIDE 94 mmol/L (101-111); CREATININE 0.4 mg/dL (0.6-1.3); GFR - MDRD 191 (>89); GLUCOSE 94 mg/dL (74-104); POTASSIUM 2.7 mmol/L (3.5-4.5); SODIUM 131 mmol/L (135-145); TOTAL PROTEIN 7.9 g/dL (6.4-8.9)
[2024-04-07 21:06] LABS: LIPASE < 10 U/L (11-82)
--- NOTE | 2024-04-07 21:20 | ED Physician Documentation ---
History of Present Illness - Stated complaint Stated Complaint: - Chief complaint Chief Complaint: General - History obtained from History obtained from: Patient - Additonal information Additional information: The patient comes to the emergency department chief complaint of fevers, chills, and what feels like a flare of her psoriatic arthritis for the last approximately 5 days. She states she has had a little nausea 2 but no vomiting. The patient states that she just hurts everywhere but especially her knees are the most flared up. She states she has been able to get out of bed since this s tarted because it hurts so much. She has measured temperatures up to 103 at home. She has a forehead scanning thermometer and states her last measurement was a couple of hours ago. She has not been taking any Tylenol and her last ibuprofen was about 24 hours ago. She denies being on any immune suppressants for her Psoriasis/psoriatic arthritis at this time. She denies any changes in her medication regimen. 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 No sick contacts. No other specific symptoms of illness such as cough, shortness of breath, or diarrhea. No other complaints at this time. The patient does note that she has a history of anemia and has had to have iron infusions and the occasional transfusion. PD PAST MEDICAL HISTORY - Past Medical History Past Medical History: Yes Endocrine/Autoimmune: Other Musculoskeletal: Rheumatoid arthritis Derm: Psoriasis - Past Surgical History Past Surgical History: Yes Ortho: Hip replacement - Present Medications Home Medications: Ambulatory Orders Medication Instructions Recorded Confirmed Magnesium Oxide [Mag Ox] 400 mg PO DAILY #30 tablet 02/17/24 Ondansetron Odt [Zofran] 4 mg TL Q6H PRN #10 tablet 02/17/24 Potassium Chloride 20 meq PO BID #60 tab 02/17/24 predniSONE [Deltasone] 10 mg PO [id number] #42 tab 04/08/24 - Allergies Allergies/Adverse Reactions: Allergies Allergy/AdvReac Type Severity Reaction Status Date / Time naproxen AdvReac Unknown Verified 04/07/24 18:43 - Social History Does the pt smoke?: No Smoking Status: Never smoker Does the pt drink ETOH?: No Does the pt have substance abuse?: No - Immunizations Immunizations are current?: Yes - POLST Patient has POLST: No PD ED PE NORMAL - Vitals Vital signs reviewed: Yes - General General: Alert and oriented X 3, No acute distress, Well developed/nourished - HEENT HEENT: Atraumatic, PERRL, EOMI, Moist mucous membranes - Neck Neck: Supple, no meningeal sign - Cardiac Cardiac: RRR, No murmur - Respiratory Respiratory: No respiratory distress, Clear bilaterally - Abdomen Abdomen: Soft, Non tender, Non distended - Back Back: No CVA TTP - Derm Derm: Normal color, Warm and dry, No rash - Extremities Extremities: No deformity, Other (Effusions bilateral knees. No erythema.) - Neuro Neuro: Other (Alert, grossly intact.) - Psych Psych: Normal mood, Normal affect Results - Vitals Vitals: Vital Signs - 24 hr 04/07/24 04/07/24 04/07/24 18:43 20:50 21:51 Temperature 36.8 C Heart Rate 100 92 95 Respiratory 16 18 18 Rate Blood Pressure 129/71 123/69 136/75 H O2 Saturation 100 99 97 04/07/24 04/08/24 04/08/24 22:51 00:00 00:53 Temperature Heart Rate 92 76 74 Respiratory 16 16 16 Rate Blood Pressure 112/71 120/67 122/68 O2 Saturation 96 95 95 Oxygen O2 Source Room air - Labs Labs: Laboratory Tests 04/07/24 04/07/24 04/07/24 19:41 20:35 20:35 WBC 8.3 RBC 3.58 L Hgb 8.0 L Hct 26.9 L MCV 75.1 L MCH 22.3 L MCHC 29.7 L RDW 17.8 H Plt Count 530 H MPV 7.7 L Neut # (Auto) 5.6 Lymph # (Auto) 1.5 [place] # (Auto) 1.1 H Eos # (Auto) 0.0 Baso # (Auto) 0.0 Absolute Nucleated RBC 0.00 Nucleated RBC % 0.0 Sodium 131 L Potassium 2.7 L Chloride 94 L Carbon Dioxide 25 Anion Gap 12.0 BUN 5 L Creatinine 0.4 L Estimated GFR (MDRD) 191 Glucose 94 Calcium 9.0 Magnesium Total Bilirubin 0.6 AST 6 L ALT 4 L Alkaline Phosphatase 73 Total Protein 7.9 Albumin 3.3 Globulin 4.6 H Albumin/Globulin Ratio 0.7 L Lipase < 10 L Urine Color DARK YELLOW Urine Clarity HAZY Urine pH 6.0 Ur Specific [place] 1.025 Urine Protein 30 H Urine Glucose (UA) NEGATIVE Urine Ketones >=80 H Urine Occult Blood MODERATE H Urine Nitrite NEGATIVE Urine Bilirubin MODERATE H Urine Urobilinogen 4 H Ur Leukocyte Esterase NEGATIVE Urine RBC 6-10 H Urine WBC 0-3 Ur Squamous Epith Cells MANY Squamous H Urine Bacteria Moderate H Urine Mucus Marked Strands Ur Microscopic Review INDICATED Urine Culture Comments NOT INDICATED Urine HCG, Qual NEGATIVE Nasal Adenovirus (PCR) Nasal B. parapertussis DNA (PCR) Nasal Coronavir 229E PCR Nasal Coronavir HKU1 PCR Nasal Coronavir NL63 PCR Nasal Coronavir OC43 PCR Nasal Enterovir/Rhinovir PCR Nasal Influenza B PCR Nasal Influenza A PCR Nasal Parainfluen 1 PCR Nasal Parainfluen 2 PCR Nasal Parainfluen 3 PCR Nasal Parainfluen 4 PCR Nasal RSV (PCR) Nasal B.pertussis DNA PCR Nasal C.pneumoniae (PCR) [place] Human Metapneumo PCR Nasal M.pneumoniae (PCR) Nasal SARS-CoV-2 (PCR) 04/07/24 04/07/24 20:35 21:35 WBC RBC Hgb Hct MCV MCH MCHC RDW Plt Count MPV Neut # (Auto) Lymph # (Auto) [place] # (Auto) Eos # (Auto) Baso # (Auto) Absolute Nucleated RBC Nucleated RBC % Sodium Potassium Chloride Carbon Dioxide Anion Gap BUN Creatinine Estimated GFR (MDRD) Glucose Calcium Magnesium 1.5 L Total Bilirubin AST ALT Alkaline Phosphatase Total Protein Albumin Globulin Albumin/Globulin Ratio Lipase Urine Color Urine Clarity Urine pH Ur Specific [place] Urine Protein Urine Glucose (UA) Urine Ketones Urine Occult Blood Urine Nitrite Urine Bilirubin Urine Urobilinogen Ur Leukocyte Esterase Urine RBC Urine WBC Ur Squamous Epith Cells Urine Bacteria Urine Mucus Ur Microscopic Review Urine Culture Comments Urine HCG, Qual Nasal Adenovirus (PCR) NOT DETECTED Nasal B. parapertussis DNA (PCR) NOT DETECTED Nasal Coronavir 229E PCR NOT DETECTED Nasal Coronavir HKU1 PCR NOT DETECTED Nasal Coronavir NL63 PCR NOT DETECTED Nasal Coronavir OC43 PCR NOT DETECTED Nasal Enterovir/Rhinovir PCR NOT DETECTED Nasal Influenza B PCR NOT DETECTED Nasal Influenza A PCR NOT DETECTED Nasal Parainfluen 1 PCR NOT DETECTED Nasal Parainfluen 2 PCR NOT DETECTED Nasal Parainfluen 3 PCR NOT DETECTED Nasal Parainfluen 4 PCR NOT DETECTED Nasal RSV (PCR) NOT DETECTED Nasal B.pertussis DNA PCR NOT DETECTED Nasal C.pneumoniae (PCR) NOT DETECTED [place] Human Metapneumo PCR NOT DETECTED Nasal M.pneumoniae (PCR) NOT DETECTED Nasal SARS-CoV-2 (PCR) NOT DETECTED PD Medical Decision Making - ED course Complexity details: reviewed results, re-evaluated patient, considered differential, d/w patient ED course: The patient was worked up with labs including CBC, ER abdominal panel, and urinalysis. She was treated symptomatically with IV fluids, Dilaudid, and Decadron. The patient was feeling better after symptomatic treatment though still in some pain. Her labs showed a normal white blood cell count and urine and respiratory PCR panels were negative. The patient was not febrile at all in the emergency department despite not having had any antipyretics for over 24 hours. I will start the patient on a steroid taper for at home. She already has oxycodone which she may take for the pain as well. I have discussed with her that she needs to follow-up with her primary doctor and porcelain enameling supervisor for further concerns and for guidance on treatment of her psoriatic arthritis. Departure - Departure Disposition: 01 Home, Self Care Clinical Impression: Psoriatic arthritis, Hypokalemia, Hypomagnesemia Condition: Stable Instructions: Psoriatic Arthritis, ED Potassium Deficiency Prescriptions: predniSONE [Deltasone] 10 mg PO [id number] #42 tab Comments: Your laboratory studies did not show any serious abnormalities. Your white blood cell count is normal and while you do have anemia, you are not in transfusion range. Your potassium is 2.7 which is moderately low and you were given an IV potassium replacement for this. Your magnesium is only very slightly low and you can take an oral replacement for this. You may get this [id number]. As far as your pain, you may continue to use your oxycodone at home. For this flare, you may take 1 to 2 tablets every 4 hours as needed for pain. A prednisone taper has also been prescribed and prescription electronically transmitted to the [facility] pharmacy in [place], your pharmacy of choice on record. Please schedule the soonest available follow-up with your doctor to discuss further concerns about your psoriasis/psoriatic arthritis. Forms: PCP List Discharge Date/Time: 04/08/24 00:55
[2024-04-07] MEDS: HYDROmorphone 1 MG/ML CARPUJECT IVP STA ×2 (21:33→22:44)
[2024-04-07] MEDS: DEXAMETHASONE 10 MG/ML VIAL IV STA (21:33)
[2024-04-07 22:35] LABS: B. PARAPERTUSSIS- RESP PCR PAN NOT DETECTED; B. PERTUSSIS- RESP PCR PANEL NOT DETECTED; C. PNEUMONIAE- RESP PCR PANEL NOT DETECTED; CORONAVIRUS 229E-RESP PCR NOT DETECTED; CORONAVIRUS HKU1-RESP PCR NOT DETECTED; CORONAVIRUS NL63-RESP PCR NOT DETECTED; CORONAVIRUS OC43-RESP PCR NOT DETECTED; HUMAN METAPNEUMOVIRUS NOT DETECTED; INFLUENZA A- RESP PCR PANEL NOT DETECTED; INFLUENZA B - RESP PCR PANEL NOT DETECTED; M. PNEUMONIAE- RESP PCR PANEL NOT DETECTED; PARAINFLUENZA VIRUS 1 NOT DETECTED; PARAINFLUENZA VIRUS 2 NOT DETECTED; PARAINFLUENZA VIRUS 3 NOT DETECTED; PARAINFLUENZA VIRUS 4 NOT DETECTED; RHINOVIRUS/ENTEROVIRUS NOT DETECTED; RSV- RESP PCR PANEL NOT DETECTED; SARS-CoV-2 -RESP PCR PANEL NOT DETECTED
[2024-04-07] MEDS: oxyCODONE 5 MG TABLET PO STA (22:44)
[2024-04-07] MEDS: POTASSIUM CHLOR 10 MEQ/100 ML 10 MEQ/100 ML BAG IV STA (22:46)
[2024-04-08 00:43] VITALS: O2SAT 95
[2024-04-08 01:01] VITALS: BP 122/68
== END 2024-04-08 00:55 | disposition home or self-care (01) ==
LOC: ED 18:30
DX: L40.50 Arthropathic psoriasis, unspecified (principal); E87.6 Hypokalemia; E83.42 Hypomagnesemia; Z79.899 Other long term (current) drug therapy
CPT/HCPCS: 36415; 80053; 81001; 81003; 81025; 83690; 83735; 85025; 87086; 87633; 96365; 96375; 99284

== ENCOUNTER 2024-05-24 15:15 | Emergency (ER) | payer MEDICAID ==
[2024-05-24 15:59] LABS: BASOPHILS % (AUTO) 0.3 %; EOSINOPHILS # (AUTO) 0.1 10^3/uL (0.0-0.7); EOSINOPHILS % (AUTO) 0.6 %; HCT - HEMATOCRIT 29.3 % (37.0-47.0); HGB - HEMOGLOBIN 8.5 g/dL (12.0-16.0); LYMPHOCYTES # (AUTO) 1.5 10^3/uL (1.5-3.5); LYMPHOCYTES % (AUTO) 15.6 %; MEAN CORPUSCULAR HEMOGLOBIN 21.5 pg (27.0-31.0); MEAN PLATELET VOLUME 7.6 fL (7.9-10.8); MONOCYTES % (AUTO) 10.3 %; NEUTROPHILS % (AUTO) 72.8 %; PLT - PLATELET COUNT 557 10^3/uL (130-450); RED BLOOD COUNT 3.96 10^6/uL (4.20-5.40); RED CELL DISTRIBUTION WIDTH 16.9 % (12.0-15.0); WHITE BLOOD COUNT 9.6 x10^3/uL (4.8-10.8)
--- NOTE | 2024-05-24 16:00 | ED Physician Documentation ---
History of Present Illness - Stated complaint Stated Complaint: JOINT PX,FATIGUE,WEAKNESS - Chief complaint Chief Complaint: General - Additonal information Additional information: 28-year-old female with complex past medical history including psoriatic arthritis who is currently off her Biologics right now because she is most likely having left knee surgery. Her athlete manager is Dr. Wallis from [facility]. Patient says that she has been feeling unwell now for the last 2 to 3 days and has been doing everything she can to prevent from coming to the emergency department but today feels like she is no longer able to wait any longer. She has severe pain in all of the joints in her body she has been noticing gum bleeding and has a new abdominal pain that she is never experienced. Ongoing nausea no vomiting very fatigued and malaise. She also feels like she is fighting possible urinary tract infection but also says that she has not been drinking enough fluids and her urine is quite concentrated. PD PAST MEDICAL HISTORY - Past Medical History Past Medical History: Yes Endocrine/Autoimmune: Other Musculoskeletal: Other Derm: Psoriasis Other Past Medical History: Psoriatic arthritis - Past Surgical History Past Surgical History: Yes Ortho: Hip replacement - Present Medications Home Medications: Ambulatory Orders Medication Instructions Recorded Confirmed predniSONE [Deltasone] 10 mg PO [id number] #42 tab 04/08/24 Ibuprofen [Motrin] 1 tablet PO Q8H PRN 05/24/24 05/24/24 Leflunomide 20 mg ORAL DAILY 05/24/24 05/24/24 Potassium Chloride 20 meq PO DAILY #15 tab 05/24/24 - Allergies Allergies/Adverse Reactions: Allergies Allergy/AdvReac Type Severity Reaction Status Date / Time naproxen AdvReac Unknown Verified 05/24/24 15:34 - Social History Does the pt smoke?: No Smoking Status: Never smoker Does the pt drink ETOH?: No Does the pt have substance abuse?: No - Immunizations Immunizations are current?: Yes - POLST Patient has POLST: No PD ED PE NORMAL - Vitals Vital signs reviewed: Yes - General General: Alert and oriented X 3, No acute distress, Well developed/nourished - HEENT HEENT: Atraumatic - Cardiac Cardiac: RRR - Respiratory Respiratory: No respiratory distress - Abdomen Abdomen: Normal bowel sounds, Soft, Non distended, No organomegaly, Other (pinpoint tenderness to left mid abdomen) - Derm Derm: Normal color, Warm and dry, No rash, Other (pale) - Extremities Extremities: Other (Left knee swelling, tenderness to all joints) Results - Vitals Vitals: Vital Signs - 24 hr 05/24/24 05/24/24 05/24/24 15:25 18:52 19:26 Temperature 36.6 C Heart Rate 111 H 65 74 Respiratory 16 14 14 Rate Blood Pressure 140/86 H 110/78 151/89 H O2 Saturation 99 97 96 05/24/24 20:01 Temperature 36.6 C Heart Rate 74 Respiratory 16 Rate Blood Pressure 130/88 H O2 Saturation 98 Oxygen O2 Source Room air - Labs Labs: Laboratory Tests 05/24/24 05/24/24 05/24/24 15:53 15:53 15:56 WBC 9.6 RBC 3.96 L Hgb 8.5 L Hct 29.3 L MCV 74.0 L MCH 21.5 L MCHC 29.0 L RDW 16.9 H Plt Count 557 H MPV 7.6 L Neut # (Auto) 7.0 H Lymph # (Auto) 1.5 [place] # (Auto) 1.0 Eos # (Auto) 0.1 Baso # (Auto) 0.0 Absolute Nucleated RBC 0.00 Nucleated RBC % 0.0 Sodium 131 L Potassium 2.8 L Chloride 94 L Carbon Dioxide 24 Anion Gap 13.0 BUN 7 Creatinine 0.5 L Estimated GFR (MDRD) 148 Glucose 112 H Lactic Acid Calcium 9.3 Magnesium 1.4 L Total Bilirubin 0.7 AST 6 L ALT 4 L Alkaline Phosphatase 71 Total Protein 8.3 Albumin 3.6 Globulin 4.7 H Albumin/Globulin Ratio 0.8 L Lipase < 10 L Urine Color DARK YELLOW Urine Clarity HAZY Urine pH 6.0 Ur Specific [place] >=1.030 H Urine Protein 30 H Urine Glucose (UA) NEGATIVE Urine Ketones >=80 H Urine Occult Blood MODERATE H Urine Nitrite NEGATIVE Urine Bilirubin MODERATE H Urine Urobilinogen 2 H Ur Leukocyte Esterase NEGATIVE Urine RBC 6-10 H Urine WBC 0-3 Ur Squamous Epith Cells MOD Squamous H Urine Bacteria Few Urine Mucus Moderate Strands Ur Microscopic Review INDICATED Urine Culture Comments NOT INDICATED Urine HCG, Qual NEGATIVE 05/24/24 16:03 WBC RBC Hgb Hct MCV MCH MCHC RDW Plt Count MPV Neut # (Auto) Lymph # (Auto) [place] # (Auto) Eos # (Auto) Baso # (Auto) Absolute Nucleated RBC Nucleated RBC % Sodium Potassium Chloride Carbon Dioxide Anion Gap BUN Creatinine Estimated GFR (MDRD) Glucose Lactic Acid 0.9 Calcium Magnesium Total Bilirubin AST ALT Alkaline Phosphatase Total Protein Albumin Globulin Albumin/Globulin Ratio Lipase Urine Color Urine Clarity Urine pH Ur Specific [place] Urine Protein Urine Glucose (UA) Urine Ketones Urine Occult Blood Urine Nitrite Urine Bilirubin Urine Urobilinogen Ur Leukocyte Esterase Urine RBC Urine WBC Ur Squamous Epith Cells Urine Bacteria Urine Mucus Ur Microscopic Review Urine Culture Comments Urine HCG, Qual - Rads (name of study) CT abdomen pelvis with contrast Relevant Findings:: Final report received, EMP independent interpretation of test, Other (Pelvic lymphadenopathy of unclear etiology likely reactive. ) PD Medical Decision Making - ED course ED course: 28-year-old female presents emerged part for psoriatic arthritis flare. Patient says this feels very similar to previous flares that she is experience. Given the fact that she is not on her Biologics she says that she is not surprised that this is happening. Pain was treated with hydromorphone here in the emergency department she was given a liter of IV fluids labs are complete for further evaluation and no leukocytosis mild anemia hemoglobin 8.5 which appears to be at patient's baseline mild hyponatremia 131 1 L of IV fluid given, potassium 2.8 a total of 20 mEq IV and 20 mEq p.o. was given. Magnesium 1.4 400 mg magnesium oxide given for replacement for this. Urinalysis does not detect any leukocytes or nitrites make me less suspicious or concern for possible urinary tract infection. She was given a total of 10 mg IV dexamethasone. Patient has close contact with Dr. Wallis her athlete manager who she said she be reaching out to Tomorrow to discuss the possibility of possibly increasing her steroids. Patient states that she wants to hold off on adding additional steroids to her regimen as she wants her athlete manager to make that decision which I believe is fair. A prescription of potassium was sent to her preferred pharmacy as patient has been running low for prolonged period of time she is told to take 20 mEq daily until she is able to have her labs rechecked in a couple days to decide with her primary care provider if she needs to increase or decrease this dose. Strict return precautions given all questions answered patient is safe for discharge at this time. Departure - Departure Disposition: 01 Home, Self Care Clinical Impression: Psoriatic arthritis, Hypokalemia, Muscle weakness, Hypomagnesemia Instructions: Hypokalemia Dc, Potassium Supplements Prescriptions: Potassium Chloride 20 meq PO DAILY #15 tab Comments: Thank you for trusting us with your care. We have completed labs for further evaluation labs for further evaluation of your electrolytes and it appears that your potassium was quite suppressed at 2.8. We gave you 40 mEq of potassium here in the ER and I am sending a prescription of potassium chloride to your preferred pharmacy I want you to start off by taking 20 mEq daily until you repeat your labs in a couple days and check with your primary care provider to see if this needs to be adjusted up or down. I would also take a magnesium supplement with the potassium. Your potassium was 1.4 today in the emergency department we have given you 400 mg of magnesium oxide to help with this as well . Please follow-up with your athlete manager about adjusting your steroids as well. Let your primary care provider know about today's ER visit. Please come back in if you have any any chest pain shortness of breath or any other concerning emergent symptoms. Forms: PCP List Discharge Date/Time: 05/24/24 20:01
[2024-05-24] MEDS: HYDROmorphone 0.5 MG/0.5 ML SYRINGE IVP STA ×4 (16:04→19:55)
[2024-05-24] MEDS: SODIUM CHLORIDE 0.9% 1,000 ML IV ONE (16:05)
[2024-05-24 16:11] LABS: BILIRUBIN,URINE MODERATE (NEGATIVE); CLARITY,URINE HAZY (CLEAR); GLUCOSE, URINE (UA) NEGATIVE (NEGATIVE); KETONES,URINE (UA) >=80 mg/dL (NEGATIVE); LEUKOCYTE ESTERASE, URINE NEGATIVE (NEGATIVE); NITRITE,URINE NEGATIVE (NEGATIVE); OCCULT BLOOD,URINE MODERATE (NEGATIVE); PROTEIN,URINE 30 mg/dL (NEGATIVE); UROBILINOGEN,URINE 2 E.U./dL (NORMAL)
[2024-05-24 16:13] LABS: ALBUMIN 3.6 g/dL (3.2-5.5); ALBUMIN/GLOBULIN RATIO 0.8 (1.0-2.2); ALKALINE PHOSPHATASE 71 IU/L (42-121); ALT ALANINE AMINOTRANSFERASE 4 IU/L (10-60); AST ASPARTATE AMINOTRANSFERASE 6 IU/L (10-42); BILIRUBIN,TOTAL 0.7 mg/dL (0.2-1.0); BUN - BLOOD UREA NITROGEN 7 mg/dL (6-20); CALCIUM 9.3 mg/dL (8.5-10.3); CARBON DIOXIDE - CO2 24 mmol/L (21-32); CHLORIDE 94 mmol/L (101-111); CREATININE 0.5 mg/dL (0.6-1.3); GFR - MDRD 148 (>89); GLUCOSE 112 mg/dL (74-104); MAGNESIUM 1.4 mg/dL (1.7-2.3); POTASSIUM 2.8 mmol/L (3.5-4.5); SODIUM 131 mmol/L (135-145); TOTAL PROTEIN 8.3 g/dL (6.4-8.9)
[2024-05-24 16:13] LABS: HCG UR QUAL NEGATIVE
[2024-05-24 16:25] LABS: WBC,URINE 0-3 /HPF (0-5)
[2024-05-24 16:26] LABS: BACTERIA,URINE Few /HPF (None Seen); MUCUS,URINE Moderate Strands; SQUAMOUS EPITHELIAL CELL,UR MOD Squamous (<= Few)
[2024-05-24] MEDS ORDERED: iohexoL-300 100 ML VIAL ONE (16:31)
[2024-05-24] MEDS: MAGNESIUM OXIDE 400 MG TABLET PO STA (16:32)
[2024-05-24] MEDS: POTASSIUM CHLORIDE INJ 40 MEQ in SODIUM CHLORIDE 0.9% 500 ML IV ONE (16:34)
[2024-05-24 16:56] LABS: LIPASE < 10 U/L (11-82)
[2024-05-24] MEDS: POTASSIUM CHLOR 10 MEQ/100 ML 10 MEQ/100 ML BAG IV SCH (17:13)
--- NOTE | 2024-05-24 17:21 | CT Report ---
PROCEDURE: Abdomen/Pelvis W INDICATIONS: mid abdominal pain CONTRAST: omni, 100 TECHNIQUE: After the administration of intravenous contrast, a CT scan of the abdomen and pelvis was performed. Images were recorded and evaluated at appropriate window settings. Reformats: coronal and sagittal. F or radiation dose reduction, the following was used: automated exposure control, adjustment of mA and /or kV according to patient size. COMPARISON: None. FINDINGS: Image quality: Diagnostic. There is significant beam hardening artifact at the level of the femoral h franca due to bilateral femoral prosthesis. This obscures the lower pelvis. Lower chest: Unremarkable. Liver: No solid mass. Gallbladder: No radiopaque stones or wall thickening. Biliary tree: No intrahepatic or extrahepatic dilation, accounting for age. Spleen: No splenomegaly. Small probable anterior cyst. Pancreas: No pancreatic ductal dilation. Adrenals: No adrenal nodule. Kidneys and ureters: No hydronephrosis. No renal cystic lesion which requires follow up. No solid mas s. Stomach, bowel and peritoneum: No gastric or small bowel dilation. No abnormal wall thickening. No pa thologic free fluid. The appendix is normal. Lymph nodes: No central or retroperitoneal adenopathy. Vessels: No infrarenal aortic aneurysm. Patent portal vein. PELVIS Reproductive organs: Unremarkable. Bladder: Completely obscured. Pelvic lymph nodes: Moderate bilateral lymphadenopathy of the inguinal, pelvic sidewalls, iliac, and lower aortic lymph nodes. Bones: No aggressive osseous abnormality. Other: No significant ventral or inguinal hernia. IMPRESSION: Pelvic lymphadenopathy of unclear etiology. Likely reactive. Bladder and lower pelvic structures are obscured by metallic artifact. Reviewed by: Omar Ruiz MD on 05/24/2024 4:19 PM NEAL Approved by: Omar Ruiz MD on 05/24/2024 4:19 PM NEAL Station ID: [id number]
[2024-05-24] MEDS: iohexoL-300 100 ML VIAL IVP ONE (17:36)
[2024-05-24] MEDS: hydrOXYzine PAMOATE 25 MG CAPSULE PO STA (17:45)
[2024-05-24] MEDS: DEXAMETHASONE 10 MG/ML VIAL IVP STA (17:47)
[2024-05-24] MEDS: ONDANSETRON 4 MG/2 ML VIAL IVP STA (18:05)
[2024-05-24] MEDS: POTASSIUM CHLORIDE 20 MEQ TABLET PO STA (19:35)
[2024-05-24 20:07] VITALS: BP 130/88; O2SAT 98
== END 2024-05-24 20:01 | disposition home or self-care (01) ==
LOC: ED 15:15
DX: L40.50 Arthropathic psoriasis, unspecified (principal); E87.6 Hypokalemia; E83.42 Hypomagnesemia; M62.81 Muscle weakness (generalized); D64.9 Anemia, unspecified; E87.1 Hypo-osmolality and hyponatremia; Z79.899 Other long term (current) drug therapy
CPT/HCPCS: 36415; 74177; 80053; 81001; 81025; 83605; 83690; 83735; 85025; 87040; 96361; 96374; 96375; 96376; 99283; 99284; A9270; J1170; Q9967; 81003; 87086